=== PATIENT | female | born 1995 | race Caucasian/White ===

== ENCOUNTER 2017-06-11 03:59 | Inpatient (IN) | payer OTHER ==
[~2017-06-11] VITALS: Ht 152.4 cm; Wt 45.9 kg
[2017-06-11] MEDS ORDERED: ONDANSETRON HCL 4 MG/2 ML VIAL IVP PRN (04:15)
[2017-06-11] MEDS ORDERED: ACETAMINOPHEN 325 MG TAB PO PRN (04:15)
[2017-06-11] MEDS ORDERED: SODIUM CHLORIDE 0.9% FLUSH 10 ML FLUSH IV FLUSH PRN (04:15)
[2017-06-11] MEDS: CIPROFLOXACIN 400 MG PREMIX 200 ML IV SCH ×2 (06:25→17:33)
[2017-06-11] MEDS: SODIUM CHLOR 0.9% 1000 ML INJ 1,000 ML IV SCH ×2 (06:25→16:15)
[2017-06-11 08:00] VITALS: BP 119/69; PULSE 97; RESP 16; TEMP 97.2; O2SAT 99
[2017-06-11] MEDS: SODIUM CHLORIDE 0.9% FLUSH 10 ML FLUSH IV FLUSH SCH ×2 (09:00→20:13)
--- NOTE | 2017-06-11 09:09 | HHI.HP ---
[facility] Service [facility] Primary Care Physician Unknown Admission Diagnosis gastric outlet obstruction Diagnoses: (1) Gastric outlet obstruction Diagnosis: Principal Chief Complaint: nausea and vomiting Travel History International Travel<30 Days: No Contact w/Intl Traveler <30 Da: No Traveled to Known Affected Are: No History of Present Illness patient is a 21 y/o female with no significant past medical history presented to ER with nausea and vomiting. she says that this started last night. she initially had some abdominal pain but it resolved. she says that she had an episode of nausea and vomiting about six months ago for which she was seen at [facility] and she was sent home with the diagnosis of food poisoning. she says that for the past two months she's had loose bowel movements. she denies any weight loss. Review of Systems Constitutional: DENIES: Fever, Weight loss, Chills, Night Sweats Eyes: DENIES: Blurred vision, Diplopia, Vision loss, Double Vision Ears, nose, mouth, throat: DENIES: Tinnitus, Vertigo, Throat pain, Epistaxis Respiratory: DENIES: Apneas, Cough, Snoring, Wheezing, Hemoptysis, Sputum production, Shortness of breath Cardiovascular: DENIES: Chest pain, Palpitations, Syncope, Dyspnea on Exertion , PND, Lower Extremity Edema, Orthopnea, Claudication Gastrointestinal: COMPLAINS OF: Nausea, Vomiting, DENIES: Abdominal pain, Black stools, Bloody stools, Constipation, Diarrhea, Difficulty Swallowing, Anorexia Genitourinary: DENIES: Urinary frequency, Urgency, Hematuria, Dysuria Musculoskeletal: DENIES: Joint pain, Muscle aches, Stiffness, Joint Swelling Integumentary: DENIES: Rash Neurologic: DENIES: Abnormal gait, Headache, Localized weakness, Paresthesias, Seizures, Speech Problems, Tremor, Poor Balance Psychiatric: DENIES: Anxiety, Confusion, Mood changes, Depression, Hallucinations, Agitation, Suicidal Ideation, Homicidal Ideation, Delusions Past Family Social History Past Medical History not significant. Past Surgical History none reported. Reported Medications control pill. Allergies: Coded Allergies: No Known Allergies (Unverified , 06/11/17) Active Ordered Medications Current Medications Sodium Chloride (NS Flush) 2 ml UNSCH PRN IV FLUSH FLUSH AFTER USING IV ACCESS ; Start 06/11/17 at 04:15 Sodium Chloride (NS Flush) 2 ml BID IV FLUSH ; Start 06/11/17 at 09:00 Acetaminophen (Tylenol) 650 mg Q4H PRN PO TEMP > 100.4; Start 06/11/17 at 04:15 Ondansetron HCl (Zofran Inj) 4 mg Q6H PRN IVP NAUSEA OR VOMITING Last administered on 06/11/17 06:57; Start 06/11/17 at 04:15 Ciprofloxacin/ Dextrose 200 ml @ 200 mls/hr Q12H IV Last administered on 06:25; Start 06/11/17 at 06:00 Sodium Chloride 1,000 ml @ 100 mls/hr Q10H IV Last administered on 06/11/17 06:25; Start 06/11/17 at 06:15 Promethazine HCl (Phenergan Inj) 12.5 mg Q8H PRN IM NAUSEA OR VOMITING; Start 06/11/17 at 08:00 Family History not significant. Social History doesn't smoke.drinks rarely. Physical Exam Vital Signs Vital Signs Date Time Temp Pulse Resp B/P (MAP) Pulse Ox O2 Delivery O2 Flow Rate FiO2 06/11/17 06:20 Physical Exam GENERAL: in no apparent distress however uncomfortable with the NG tube. SKIN: No rashes, ecchymoses or lesions. Cool and dry. HEAD: Atraumatic. Normocephalic. No temporal or scalp tenderness. EYES: Pupils equal round and reactive. Extraocular motions intact. No scleral icterus. No injection or drainage. ENT: Nose without bleeding, purulent drainage or septal hematoma. Throat without erythema, tonsillar hypertrophy or exudate. Uvula midline. Airway patent. NECK: Trachea midline. No JVD or lymphadenopathy. Supple, nontender, no meningeal signs. CARDIOVASCULAR: Regular rate and rhythm without murmurs, gallops, or rubs. RESPIRATORY: Clear to auscultation. Breath sounds equal bilaterally. No wheezes , rales, or rhonchi. GASTROINTESTINAL: Abdomen soft, non-tender, nondistended. No hepato-splenomegaly , or palpable masses. No guarding. MUSCULOSKELETAL: Extremities without clubbing, cyanosis, or edema. No joint tenderness, effusion, or edema noted. No calf tenderness. Negative Homans sign bilaterally. NEUROLOGICAL: Awake and alert. Cranial nerves II through XII intact. Motor and sensory grossly within normal limits. Five out of 5 muscle strength in all muscle groups. Normal speech. Imaging CT of the abdomen with gastric outlet obstruction. Caprini VTE Risk Assessment Caprini VTE Risk Assessment: No/Low Risk (score <= 1) Caprini Risk Assessment Model Point Value = 1 Point Value = 2 Point Value = 3 Point Value = 5 Age 41-60 Minor surgery BMI > 25 kg/m2 Swollen legs Varicose veins or History of unexplained or recurrent spontaneous Oral contraceptives or hormone replacement Sepsis (< 1 month) Serious lung disease, including pneumonia (< 1 month) Abnormal pulmonary function Acute myocardial infarction Congestive heart failure (< 1 month) History of inflammatory bowel disease Medical patient at bed rest Age 61-74 Arthroscopic surgery Major open surgery (> 45 min) Laparoscopic surgery (> 45 min) Malignancy Confined to bed (> 72 hours) Immobilizing plaster cast Central venous access Age >= 75 History of VTE Family history of VTE Factor V Leiden Prothrombin [id number] Lupus anticoagulant Anticardiolipin antibodies Elevated serum homocysteine Heparin-induced thrombocytopenia Other congenital or acquired thrombophilia Stroke (< 1 month) Elective arthroplasty Hip, pelvis, or leg fracture Acute spinal cord injury (< 1 month) Prophylaxis Regimen Total Risk Factor Score Risk Level Prophylaxis Regimen 0-1 Low Early ambulation 2 Moderate Order ONE of the following: *Sequential Compression Device (SCD) *Heparin 5000 units SQ BID 3-4 Higher Order ONE of the following medications: *Heparin 5000 units SQ TID *Enoxaparin/Lovenox 40 mg SQ daily (WT < 150 kg, CrCl > 30 mL/min) *Enoxaparin/Lovenox 30 mg SQ daily (WT < 150 kg, CrCl > 10-29 mL/min) *Enoxaparin/Lovenox 30 mg SQ BID (WT < 150 kg, CrCl > 30 mL/min) AND/OR *Sequential Compression Device (SCD) 5 or more Highest Order ONE of the following medications: *Heparin 5000 units SQ TID (Preferred with Epidurals) *Enoxaparin/Lovenox 40 mg SQ daily (WT < 150 kg, CrCl > 30 mL/min) *Enoxaparin/Lovenox 30 mg SQ daily (WT < 150 kg, CrCl > 10-29 mL/min) *Enoxaparin/Lovenox 30 mg SQ BID (WT < 150 kg, CrCl > 30 mL/min) AND *Sequential Compression Device (SCD) Assessment and Plan Assessment and Plan A/P - gastric outlet obstruction keep NPO and continue with IV fluid- continue antiemetics as needed. GI consulted. -questionable UTI- started on Cipro- will follow the UC. Discussed Condition With the patient and RN. Physician Certification 2 Midnight Certification Type: Admission for Inpatient Services Order for Inpatient Services The services are ordered in accordance with Medicare regulations or non- Medicare payer requirements, as applicable. In the case of services not specified as inpatient-only, they are appropriately provided as inpatient services in accordance with the 2-midnight benchmark. Estimated LOS (days): 2 days is the estimated time the patient will need to remain in the hospital, assuming treatment plan goals are met and no additional complications. Post-Hospital Plan: Home Juani Lester MD Jun 11, 2017 09:09
[2017-06-11] MEDS: PROMETHAZINE INJ 25 MG/ML VIAL IM PRN ×2 (09:10→17:33)
--- NOTE | 2017-06-11 09:30 | RADRPT ---
EXAM DATE/TIME: 06/11/2017 09:02 [place] COMPARISON: CT ABDOMEN & PELVIS W CONTRAST, June 11, 2017, 2:42. INDICATIONS : Evaluate NG tube placement MEDICAL HISTORY : None. SURGICAL HISTORY : None. ENCOUNTER: Initial ACUITY: 1 day PAIN SCORE: 0/10 LOCATION: chest FINDINGS: Portable AP view of the chest demonstrates a normal-sized cardiac silhouette. Nasogastric tube distal tip is in the gastric body. Lungs are clear. No pneumothorax is present. Lines overlie the patient. There is mild thoracic and lumbar scoliosis. CONCLUSION: Nasogastric tube distal tip in the gastric body. Kevin Araujo MD on June 11, 2017 at 9:27 Board Certified Radiologist. This report was verified electronically.
[2017-06-11 12:00] VITALS: BP 109/67; PULSE 80; RESP 16; TEMP 96.8; O2SAT 98
--- NOTE | 2017-06-11 14:06 | PD.CONS ---
HPI History of Present Illness This is a 21 year old female who presented to the [facility] ER with c/o nausea and vomiting that started overnight. CT Abdomen findings in ER suggest gastric outlet obstruction. Patient reports multiple episodes of emesis, no blood noted in emesis. Reports right sided abdominal pain. Has noted change in bowel movements over past 2 months. Reports she has an BM every 2-3 days, which are loose. Denies melena or hematochezia. Has heartburn and reflux. States sometimes the chest pain from the heartburn is so intense that it will "take her breath away." She does report similar episode of symptoms 6 months ago and was evaluated at [facility]. She was discharged home with diagnosis of food poisoning. No other significant past medical history noted. (Mini Wray) PFSH Past Medical History Not significant Past Surgical History None (Mini Wray) Coded Allergies: No Known Allergies (Unverified , 06/11/17) Medications Current Medications Medications (Trade) Dose Ordered Sig/Raghavendra Route PRN Reason Start Time Stop Time Status Last Admin Dose Admin Sodium Chloride (NS Flush) 2 ml UNSCH PRN IV FLUSH FLUSH AFTER USING IV ACCESS 06/11/17 04:15 Sodium Chloride (NS Flush) 2 ml BID IV FLUSH 06/11/17 09:00 Acetaminophen (Tylenol) 650 mg Q4H PRN PO TEMP > 100.4 06/11/17 04:15 Ondansetron HCl (Zofran Inj) 4 mg Q6H PRN IVP NAUSEA OR VOMITING 06/11/17 04:15 06/11/17 06:57 Ciprofloxacin/ Dextrose 200 ml @ 200 mls/hr Q12H IV 06/11/17 06:00 06/11/17 06:25 Sodium Chloride 1,000 ml @ 100 mls/hr Q10H IV 06/11/17 06:15 06/11/17 06:25 Promethazine HCl (Phenergan Inj) 12.5 mg Q8H PRN IM NAUSEA OR VOMITING 06/11/17 08:00 06/11/17 09:10 Family History Non contributory Social History Tobacco, denies ETOH, rare Illicit Drugs, denies (Mini Wray) Review of Systems Constitutional: COMPLAINS OF: Change in appetite, DENIES: Diaphoretic episodes , Fatigue, Fever, Weight gain, Weight loss, Chills, Dizziness, Night Sweats Endocrine: DENIES: Polydipsia, Polyuria Eyes: DENIES: Blurred vision, Photosensitivity, Double Vision Ears, nose, mouth, throat: DENIES: Hearing loss, Vertigo, Oral lesions, Throat pain, Hoarseness Respiratory: DENIES: Cough, Wheezing, Hemoptysis, Sputum production, Shortness of breath Cardiovascular: DENIES: Chest pain, Palpitations, Syncope, Lower Extremity Edema, Orthopnea, Claudication Gastrointestinal: COMPLAINS OF: Abdominal pain, Diarrhea, Nausea, Vomiting, Heartburn Genitourinary: DENIES: Urinary frequency, Urinary incontinence, Urgency, Hematuria, Dysuria, Nocturia Musculoskeletal: DENIES: Joint pain, Muscle aches, Stiffness, Joint Swelling, Back pain, Neck pain Integumentary: DENIES: Abnormal pigmentation, Nail changes, Pruritus, Rash, Jaundice Hematologic/lymphatic: DENIES: Bruising, Lymphadenopathy Immunologic/allergic: DENIES: Eczema, Urticaria Neurologic: DENIES: Abnormal gait, Headache, Localized weakness, Paresthesias Psychiatric: DENIES: Anxiety, Confusion, Mood changes, Depression, Agitation, Suicidal Ideation (Mini Wray) GI Exam Vitals I&O Vital Signs Date Time Temp Pulse Resp B/P (MAP) Pulse Ox O2 Delivery O2 Flow Rate FiO2 06/11/17 08:00 97.2 97 16 119/69 (86) 99 06/11/17 06:20 I/O 06/10/17 06/10/17 06/10/17 06/11/17 06/11/17 06/11/17 07:00 15:00 23:00 07:00 15:00 23:00 Intake Total 0 ml Output Total 50 ml Balance 0 ml -50 ml Intake Oral 0 ml Output Emesis 50 ml # Voids 1 # Bowel Movements 0 Imaging Last Impressions Chest X-Ray 06/11/17 0000 Signed Impressions: Service Date/Time: Sunday, June 11, 2017 09:02 - CONCLUSION: Nasogastric tube distal tip in the gastric body. Kevin Araujo MD Laboratory Vital Signs Date Time Temp Pulse Resp B/P (MAP) Pulse Ox O2 Delivery O2 Flow Rate FiO2 06/11/17 08:00 97.2 97 16 119/69 (86) 99 06/11/17 06:20 Physical Examination HEENT: Normocephalic; atraumatic; no jaundice. Throat is clear. NGT to [facility] with minimal green drainage. NECK: Neck is supple CHEST: CTA CARDIAC: RRR with no murmur gallop or rubs. ABDOMEN: Soft, nondistended, nontender; no hepatosplenomegaly; bowel sounds are present. EXTREMITIES: No clubbing, cyanosis, or edema. SKIN: Normal; no rash; no jaundice. LOG TURNER: No focal deficits; alert and oriented x 3 (Mini Wray) Assessment and Plan Plan ASSESSMENT: - Gastric outlet obstruction, with nausea and vomiting. CT Abdomen (06/11/17)-- Findings suggest gastric outlet obstruction. Concentric narrowing of the pyloric region could represent either peristaltic contraction or mass lesion. NGT is in place at [facility] with minimal green gastric fluid. WBC 16.9 (06/11) - UTI? Urine culture indicated, results pending. PLAN: - EGD Monday - Obtain consents - NPO - Clamp NGT - IVF - Anti-emetics - Supportive care - Further recommendations to follow based on results of above Patient seen and examined by Dr. Rodriguez and myself and this note is written on his behalf. (Mini Wray) Physician Comments Patient seen and examined Agree with above Continue with current supportive care And monitor labs Plan for an EGD tomorrow (Tanmay Rodriguez MD) Mini Wray Jun 11, 2017 14:06 Tanmay Rodriguez MD Jun 11, 2017 23:26
[2017-06-11 16:00] VITALS: BP 111/66; PULSE 89; RESP 16; TEMP 97.9; O2SAT 95
[2017-06-11] MEDS: DEXT 5%-NACL 0.9% 1000 ML INJ 1,000 ML IV SCH (17:35)
[2017-06-11 20:05] VITALS: BP 99/65; PULSE 86; RESP 18; TEMP 98.8; O2SAT 96
[2017-06-11] MEDS ORDERED: PHENOL 1.4% SOLN 180 ML BTL OROPHARYNG PRN (21:45)
[2017-06-11] MEDS ORDERED: SODIUM CHLORID 0.9% 500 ML IV PRN (21:45)
[2017-06-11] MEDS ORDERED: POVIDONE IODINE 5% (ANTISEPSIS KIT) 4 APPLICATIONS EACH NARE PRN (21:45)
[2017-06-11] MEDS ORDERED: INSULIN HUMAN REGULAR 1,000 UNITS/10 ML VIAL SQ PRN (21:45)
[2017-06-11] MEDS ORDERED: CHLORHEXIDINE GLUCONATE 2 % 1 PACK (2 CLOTHS) TOPICAL PRN (21:45)
[2017-06-11] MEDS ORDERED: METOPROLOL TARTRATE 25 MG TAB PO PRN (21:45)
[2017-06-11] MEDS ORDERED: LACTATED RINGER'S 1000 ML IV PRN (21:45)
[2017-06-11 22:05] VITALS: BP 104/65; PULSE 61; RESP 16; TEMP 97.4; O2SAT 100
[2017-06-12 03:10] VITALS: BP 98/55; PULSE 79; RESP 17; TEMP 97.6; O2SAT 98
[2017-06-12] MEDS: CIPROFLOXACIN 400 MG PREMIX 200 ML IV SCH ×2 (05:54→18:15)
[2017-06-12] MEDS: DEXT 5%-NACL 0.9% 1000 ML INJ 1,000 ML IV SCH (05:54)
[2017-06-12 07:36] VITALS: BP 102/62; PULSE 65; RESP 18; TEMP 96.5; O2SAT 98
[2017-06-12] MEDS: SODIUM CHLORIDE 0.9% FLUSH 10 ML FLUSH IV FLUSH SCH (08:03)
[2017-06-12] MEDS ORDERED: SUCCINYLCHOLINE CHLORIDE 100 MG/5 ML SYRINGE IV PUSH ONE (08:13)
[2017-06-12] MEDS ORDERED: LIDOCAINE HCL 1% PF 5 ML AMPULE OTHER ONE (08:13)
[2017-06-12 08:43] LABS: AUTOMATED NEUTROPHIL # 3.2 TH/MM3 (1.8-7.7); BASOPHIL % 0.3 % (0.0-2.0); EOSINOPHIL # 0.2 TH/MM3 (0-0.4); EOSINOPHIL % 3.7 % (0.0-4.0); HEMO FLAGS DIFF FINAL; LYMPH % 23.3 % (9.0-44.0); LYMPHOCYTE # 1.3 TH/MM3 (1.0-4.8); MEAN CORPUSCULAR HEMOGLOBIN 30.4 PG (27.0-34.0); MEAN CORPUSCULAR HGB CONC 33.8 % (32.0-36.0); MONO % 13.9 % (0.0-8.0); NEUT % 58.8 % (16.0-70.0); PLATELET COUNT 183 TH/MM3 (150-450); RED BLOOD COUNT 3.78 MIL/MM3 (4.00-5.30); WHITE BLOOD COUNT 5.5 TH/MM3 (4.0-11.0)
--- NOTE | 2017-06-12 08:55 | HHI.PR ---
Subjective Remarks in no acute distress. NG tube in place. nausea is better. no abdominal pain. awaiting EGD. Objective Vitals Vital Signs Date Time Temp Pulse Resp B/P (MAP) Pulse Ox O2 Delivery O2 Flow Rate FiO2 06/12/17 07:36 96.5 65 18 102/62 (75) 98 06/12/17 03:10 97.6 79 17 98/55 (69) 98 06/11/17 22:05 97.4 61 16 104/65 (78) 100 06/11/17 20:05 98.8 86 18 99/65 (76) 96 06/11/17 16:00 97.9 89 16 111/66 (81) 95 06/11/17 12:00 96.8 80 16 109/67 (81) 98 I/O 06/11/17 06/11/17 06/11/17 06/12/17 06/12/17 06/12/17 07:00 15:00 23:00 07:00 15:00 23:00 Intake Total 0 ml 286 ml 888 ml 0 ml Output Total 53 ml Balance 0 ml -53 ml 286 ml 888 ml 0 ml Intake Oral 0 ml 0 ml 0 ml IV Total 286 ml 888 ml Output Urine Total 3 ml Emesis 50 ml Bladder Scan Volume Amount 22 ml # Voids 1 1 1 # Bowel Movements 0 1 0 0 Result Diagram: 06/12/17 0748 Imaging Last Impressions Chest X-Ray 06/11/17 0000 Signed Impressions: Service Date/Time: Sunday, June 11, 2017 09:02 - CONCLUSION: Nasogastric tube distal tip in the gastric body. Kevin Araujo MD Objective Remarks GENERAL: in no distress with NG tube in place. CARDIOVASCULAR: Regular rate and regular rhythm without murmurs, gallops, or rubs. RESPIRATORY: Clear to auscultation. Breath sounds equal bilaterally. No wheezes , rales, or rhonchi. GASTROINTESTINAL: Abdomen soft, non-tender, nondistended. Normal, active bowel sounds MUSCULOSKELETAL: Extremities without clubbing, cyanosis, or edema. NEURO: Alert & Oriented x4 to person, place, time, situation. Moves all ext x4 Medications and IVs Current Medications Sodium Chloride (NS Flush) 2 ml UNSCH PRN IV FLUSH FLUSH AFTER USING IV ACCESS ; Start 06/11/17 at 04:15 Sodium Chloride (NS Flush) 2 ml BID IV FLUSH ; Start 06/11/17 at 09:00 Acetaminophen (Tylenol) 650 mg Q4H PRN PO TEMP > 100.4; Start 06/11/17 at 04:15 Ondansetron HCl (Zofran Inj) 4 mg Q6H PRN IVP NAUSEA OR VOMITING Last administered on 06/11/17 06:57; Start 06/11/17 at 04:15 Ciprofloxacin/ Dextrose 200 ml @ 200 mls/hr Q12H IV Last administered on 05:54; Start 06/11/17 at 06:00 Sodium Chloride 1,000 ml @ 100 mls/hr Q10H IV Last administered on 06/11/17 06:25; Start 06/11/17 at 06:15; Stop 06/11/17 at 18:01; Status DC Promethazine HCl (Phenergan Inj) 12.5 mg Q8H PRN IM NAUSEA OR VOMITING Last administered on 06/11/17 17:33; Start 06/11/17 at 08:00 Dextrose/Sodium Chloride 1,000 ml @ 100 mls/hr Q10H IV Last administered on 05:54; Start 06/11/17 at 18:15 Phenol (Chloraseptic [place]) 2 spray Q2H PRN OROPHARYNG sore throat Last administered on 06/11/17 21:48; Start 06/11/17 at 21:45 Lactated Ringer's 1,000 ml @ 30 mls/hr Q24H PRN IV SEE LABEL COMMENTS; Start at 21:45; Stop 06/14/17 at 21:44 Sodium Chloride 500 ml @ 30 mls/hr [id number] PRN IV SEE LABEL COMMENTS; Start at 21:45; Stop 06/14/17 at 21:44 Metoprolol Tartrate (Lopressor) 25 mg MID LEVEL CLINICIAN PRN PO SEE LABEL COMMENTS; Start 06/11/17 at 21:45; Stop 06/14/17 at 21:44; Status Cancel Povidone Iodine (Betadine 5% Antisepsis Kit) 1 applic MID LEVEL CLINICIAN PRN EACH NARE SEE LABEL COMMENTS; Start 06/11/17 at 21:45; Stop 06/14/17 at 21:44 Chlorhexidine Gluconate (Chlorhexidine 2% Cloth) 3 pack MID LEVEL CLINICIAN PRN TOPICAL SEE LABEL COMMENTS; Start 06/11/17 at 21:45; Stop 06/14/17 at 21:44 Insulin Human Regular (NovoLIN R INJ) See Protocol Table ... MID LEVEL CLINICIAN PRN SQ SEE PROTOCOL TABLE; Start 06/11/17 at 21:45; Stop 06/14/17 at 21:44 A/P Assessment and Plan - gastric outlet obstruction keep NPO and continue with IV fluid- continue antiemetics as needed. GI consulted and plan for EGD today. -low-normal blood sugar-improved- continue with D5NS -questionable UTI- started on Cipro- will follow the UC. Discharge Planning pending EGD and GI recommendations. Juani Lester MD Jun 12, 2017 08:55
[2017-06-12 09:00] LABS: BICARBONATE 24.8 MEQ/L (21.0-32.0); POTASSIUM 3.3 MEQ/L (3.5-5.1)
[2017-06-12] MEDS ORDERED: PROPOFOL 200 MG/20 ML AMP IV ONE (12:00)
[2017-06-12] MEDS ORDERED: MIDAZOLAM HCL 2 MG/2 ML VIAL IV ONE (12:00)
[2017-06-12] MEDS ORDERED: LACTATED RINGER'S 1000 ML INJ 1,000 ML IV ONE (12:29)
[2017-06-12] MEDS: D5-NS + KCL 20 MEQ INJ 1,000 ML IV SCH ×3 (12:30→22:30)
--- NOTE | 2017-06-12 12:57 | HHI.GIFU ---
Subjective Remarks Patient is doing okay, being uncomfortable with the NG tube, no vomiting anymore , still some abdominal discomfort Objective Vitals I&O Vital Signs Date Time Temp Pulse Resp B/P (MAP) Pulse Ox O2 Delivery O2 Flow Rate FiO2 06/12/17 07:36 96.5 65 18 102/62 (75) 98 06/12/17 03:10 97.6 79 17 98/55 (69) 98 06/11/17 22:05 97.4 61 16 104/65 (78) 100 06/11/17 20:05 98.8 86 18 99/65 (76) 96 06/11/17 16:00 97.9 89 16 111/66 (81) 95 I/O 06/11/17 06/11/17 06/11/17 06/12/17 06/12/17 06/12/17 07:00 15:00 23:00 07:00 15:00 23:00 Intake Total 0 ml 286 ml 888 ml 0 ml Output Total 53 ml Balance 0 ml -53 ml 286 ml 888 ml 0 ml Intake Oral 0 ml 0 ml 0 ml IV Total 286 ml 888 ml Output Urine Total 3 ml Emesis 50 ml Bladder Scan Volume Amount 22 ml # Voids 1 1 1 # Bowel Movements 0 1 0 0 Laboratory Laboratory Tests Test 06/12/17 07:48 White Blood Count 5.5 Red Blood Count 3.78 Hemoglobin 11.5 Hematocrit 34.0 Mean Corpuscular Volume 90.0 Mean Corpuscular Hemoglobin 30.4 Mean Corpuscular Hemoglobin Concent 33.8 Red Cell Distribution Width 13.0 Platelet Count 183 Mean Platelet Volume 8.3 Neutrophils (%) (Auto) 58.8 Lymphocytes (%) (Auto) 23.3 Monocytes (%) (Auto) 13.9 Eosinophils (%) (Auto) 3.7 Basophils (%) (Auto) 0.3 Neutrophils # (Auto) 3.2 Lymphocytes # (Auto) 1.3 Monocytes # (Auto) 0.8 Eosinophils # (Auto) 0.2 Basophils # (Auto) 0.0 CBC Comment DIFF FINAL Differential Comment Blood Urea Nitrogen 9 Creatinine 0.82 Random Glucose 88 Calcium Level 8.0 Sodium Level 143 Potassium Level 3.3 Chloride Level 112 Carbon Dioxide Level 24.8 Anion Gap 6 Estimat Glomerular Filtration Rate 90 Physical Exam HEENT: Pupils round and reactive to light; normocephalic; atraumatic; no jaundice. Throat is clear. NECK: Neck is supple, no JVD, no lymphadenopathy. CHEST: Chest is clear to auscultation and percussion. CARDIAC: Regular rate and rhythm with no murmur gallop or rubs. ABDOMEN: Soft, nondistended, mild diffuse abdominal tenderness; no hepatosplenomegaly; bowel sounds are present in all four quadrants. EXTREMITIES: No clubbing, cyanosis, or edema. SKIN: Normal; no rash; no jaundice. WIRE FRAME MAKER: No focal deficits; alert and oriented times three. Assessment and Plan Plan ASSESSMENT: - Gastric outlet obstruction, with nausea and vomiting. CT Abdomen (06/11/17)-- Findings suggest gastric outlet obstruction. Concentric narrowing of the pyloric region could represent either peristaltic contraction or mass lesion. NGT is in place at [facility] with minimal green gastric fluid. WBC 16.9 (06/11) - UTI? Urine culture indicated, results pending. 06/12/2017 patient is doing okay, EGD showed no gastric outlet obstruction, patient has duodenitis biopsy from the antrum to rule out H. pylori, she has esophagitis biopsy was done from the distal esophagus PLAN: -Clear liquid advance as tolerated -DC NGT - IVF - Anti-emetics - Supportive care -Await biopsy results -If continued to have problem a small bowel follow-through may be indicated Patient seen and examined by Dr. Rodriguez and myself and this note is written on his behalf. Jaye Gabriel MD Jun 12, 2017 12:57
--- NOTE | 2017-06-12 13:00 | GIPROC ---
[facility] [address] [facility]. [facility], [address] EGD PROCEDURE REPORT EXAM DATE: 06/12/2017 PATIENT NAME: Matilda Grey MR #: [id number] BIRTHDATE: 1995 ATTENDING: Jaye Gabriel MD ORDER #: [id number] YARD ENGINEER: Ehsan Pino and Rachna March STATUS: inpatient INDICATIONS: The patient is a 21 yr old female here for an EGD due to Nausea vomiting, abdominal pain, possible gastric outlet obstruction on CT of the abdomen PROCEDURE PERFORMED: EGD w/ biopsy MEDICATIONS: None and Per Anesthesia. TOPICAL ANESTHETIC: none CONSENT: The patient understands the risks and benefits of the procedure and understands that these risks include, but are not limited to: sedation, allergic reaction, infection, perforation and/or bleeding. Alternative means of evaluation and treatment include, among others: physical exam, x-rays, and/or surgical intervention. The patient elects to proceed with this endoscopic procedure. medical equipment was checked for proper function. Hand hygiene and appropriate measures for infection prevention was taken. After the risks, benefits and alternatives of the procedure were thoroughly explained, Informed consent was verified, confirmed and timeout was successfully executed by the treatment team. The patient was anesthetized with topical anesthesia and the Pentax EG-[id number] endoscope was introduced through the mouth and advanced to the second portion of the duodenum. Retroflexed views revealed no abnormalities The gastroscope was then slowly withdrawn and removed. Moderate esophagitis biopsy from the EG junction. No gastric outlet obstruction. Mild duodenitis, biopsy from the antrum to rule out H. pylori. The endoscopy was otherwise normal. ADVERSE EVENTS: There were no complications. IMPRESSIONS: 1. Moderate esophagitis biopsy from the EG junction 2. No gastric outlet obstruction 3. Mild duodenitis, biopsy from the antrum to rule out H. pylori 4. Normal endoscopy otherwise 5. Retroflexed views revealed no abnormalities RECOMMENDATIONS: 1. Await biopsy results. Biopsy results will not be ready for 7-10 days. If you don't hear from us in two weeks, call our office for biopsy results. 2. Anti-reflux regimen 3. Avoid NSAIDS 4. Start PPI 5. Most likely this is gastroenteritis, if symptoms persist she will need small bowel follow-through PATIENT CONDITION: stable DISPOSITION: Inpatient REPEAT EXAM: Return as needed for EGD Jaye Gabriel MD eSigned: Jaye Gabriel MD 06/12/2017 1:00 PM cc: PATIENT NAME: Matilda Grey MR#: [id number]
[2017-06-12] MEDS ORDERED: DO NOT ADM ANY ANTICOAGULANT DRUGS PRN (13:18)
[2017-06-12 15:26] VITALS: BP 118/84; PULSE 52; RESP 18; TEMP 95.5; O2SAT 100
[2017-06-12] MEDS: PROMETHAZINE INJ 25 MG/ML VIAL IM PRN (15:43)
[2017-06-12] MEDS ORDERED: POTASSIUM CHLORIDE INJ 20 MEQ in DEXT 5%-NACL 0.9% 1000 ML INJ 1,000 ML IV SCH (18:15)
[2017-06-12 20:15] VITALS: BP 89/62; PULSE 62; RESP 16; TEMP 97.7; O2SAT 100
[2017-06-12] MEDS ORDERED: ACETAMINOPHEN/HYDROcodone 325 MG/5 MG TAB PO ONE (20:30)
[2017-06-12] MEDS ORDERED: diphenhydrAMINE HCL 25 MG CAP PO ONE (20:30)
[2017-06-12 23:57] VITALS: BP 96/54; PULSE 73; RESP 16; TEMP 96.2; O2SAT 100
[2017-06-13 00:34] VITALS: O2SAT 95
[2017-06-13] MEDS: CIPROFLOXACIN 400 MG PREMIX 200 ML IV SCH (05:49)
[2017-06-13 08:00] VITALS: BP 106/72; PULSE 72; RESP 16; TEMP 96; O2SAT 100
--- NOTE | 2017-06-13 09:48 | HHI.PR ---
Subjective Remarks in no distress. NG has been removed. started on liquid diet . complaining of abdominal pain. Objective Vitals Vital Signs Date Time Temp Pulse Resp B/P (MAP) Pulse Ox O2 Delivery O2 Flow Rate FiO2 06/13/17 00:34 95 06/12/17 23:57 96.2 73 16 96/54 (68) 100 06/12/17 20:15 97.7 62 16 89/62 (71) 100 06/12/17 15:26 95.5 52 18 118/84 (95) 100 06/12/17 13:30 98.0 82 16 129/61 (83) 100 Room Air 06/12/17 13:15 96 16 127/78 (94) 100 Room Air 06/12/17 13:13 98.0 99 16 127/78 (94) 99 Room Air I/O 06/12/17 06/12/17 06/12/17 06/13/17 06/13/17 06/13/17 07:00 15:00 23:00 07:00 15:00 23:00 Intake Total 888 ml 750 ml 240 ml 240 ml Balance 888 ml 750 ml 240 ml 240 ml Intake Oral 0 ml 240 ml 240 ml IV Total 888 ml 0 ml Other 750 ml Bladder Scan Volume Amount 22 ml # Voids 1 1 2 # Bowel Movements 0 0 0 Result Diagram: 06/12/17 0748 06/12/17 0748 Imaging Last Impressions Chest X-Ray 06/11/17 0000 Signed Impressions: Service Date/Time: Sunday, June 11, 2017 09:02 - CONCLUSION: Nasogastric tube distal tip in the gastric body. Kevin Araujo MD Objective Remarks GENERAL: in no distress . CARDIOVASCULAR: Regular rate and regular rhythm without murmurs, gallops, or rubs. RESPIRATORY: Clear to auscultation. Breath sounds equal bilaterally. No wheezes , rales, or rhonchi. GASTROINTESTINAL: Abdomen soft, mild epigastric tenderness, nondistended. Normal, active bowel sounds MUSCULOSKELETAL: Extremities without clubbing, cyanosis, or edema. NEURO: Alert & Oriented x4 to person, place, time, situation. Moves all ext x4 Procedures EGD Medications and IVs Current Medications Sodium Chloride (NS Flush) 2 ml UNSCH PRN IV FLUSH FLUSH AFTER USING IV ACCESS ; Start 06/11/17 at 04:15 Sodium Chloride (NS Flush) 2 ml BID IV FLUSH ; Start 06/11/17 at 09:00 Acetaminophen (Tylenol) 650 mg Q4H PRN PO TEMP > 100.4; Start 06/11/17 at 04:15 Ondansetron HCl (Zofran Inj) 4 mg Q6H PRN IVP NAUSEA OR VOMITING Last administered on 06/11/17 06:57; Start 06/11/17 at 04:15 Ciprofloxacin/ Dextrose 200 ml @ 200 mls/hr Q12H IV Last administered on 05:49; Start 06/11/17 at 06:00 Sodium Chloride 1,000 ml @ 100 mls/hr Q10H IV Last administered on 06/11/17 06:25; Start 06/11/17 at 06:15; Stop 06/11/17 at 18:01; Status DC Promethazine HCl (Phenergan Inj) 12.5 mg Q8H PRN IM NAUSEA OR VOMITING Last administered on 06/12/17 15:43; Start 06/11/17 at 08:00 Dextrose/Sodium Chloride 1,000 ml @ 100 mls/hr Q10H IV Last administered on 05:54; Start 06/11/17 at 18:15; Stop 06/12/17 at 12:18; Status DC Phenol (Chloraseptic [place]) 2 spray Q2H PRN OROPHARYNG sore throat Last administered on 06/11/17 21:48; Start 06/11/17 at 21:45 Lactated Ringer's 1,000 ml @ 30 mls/hr Q24H PRN IV SEE LABEL COMMENTS; Start at 21:45; Stop 06/12/17 at 12:22; Status DC Sodium Chloride 500 ml @ 30 mls/hr [id number] PRN IV SEE LABEL COMMENTS; Start at 21:45; Stop 06/12/17 at 12:22; Status DC Metoprolol Tartrate (Lopressor) 25 mg BUSINESS [employer]IT LEADER PRN PO SEE LABEL COMMENTS; Start 06/11/17 at 21:45; Stop 06/14/17 at 21:44; Status Cancel Povidone Iodine (Betadine 5% Antisepsis Kit) 1 applic BUSINESS UNIT LEADER PRN EACH NARE SEE LABEL COMMENTS; Start 06/11/17 at 21:45; Stop 06/14/17 at 21:44 Chlorhexidine Gluconate (Chlorhexidine 2% Cloth) 3 pack BUSINESS UNIT LEADER PRN TOPICAL SEE LABEL COMMENTS; Start 06/11/17 at 21:45; Stop 06/14/17 at 21:44 Insulin Human Regular (NovoLIN R INJ) See Protocol Table ... BUSINESS UNIT LEADER PRN SQ SEE PROTOCOL TABLE; Start 06/11/17 at 21:45; Stop 06/14/17 at 21:44 Potassium Chloride 20 meq/ Dextrose/Sodium Chloride 1,010 ml @ 100 mls/hr Q10H6M IV ; Start 06/12/17 at 18:15; Stop 06/12/17 at 18:15; Status DC Potassium Chloride/Dextrose/ Sod Cl 1,000 ml @ 100 mls/hr Q10H IV Last administered on 06/12/17 22:30; Start 06/12/17 at 12:30 Lactated Ringer's 1,000 ml @ 30 mls/hr Q24H ONCE IV Last administered on 12:38; Start 06/12/17 at 12:29; Stop 06/13/17 at 12:28 Miscellaneous Information ALL NURSING DEPARTME... UNSCH PRN .XX SEE LABEL COMMENTS; Start 06/12/17 at 13:18; Stop 06/13/17 at 13:17 Acetaminophen/ Hydrocodone Bitart ([place] 5-325 Mg) 1 tab ONCE ONCE PO Last administered on 06/12/17 20:30; Start 06/12/17 at 20:30; Stop 06/12/17 at 20:31 ; Status DC Diphenhydramine HCl (Benadryl) 25 mg ONCE ONCE PO Last administered on 20:30; Start 06/12/17 at 20:30; Stop 06/12/17 at 20:31; Status DC A/P Assessment and Plan A/P -nausea/ vomiting/abdominal pain with CT of the abdomen suggestive of gastric outlet obstruction s/p EGD with esophagitis and duodenitis- however with no gastric outlet obstruction started on liquid diet- will start her on PPI. GI following. -low-normal blood sugar-improved- continue with D5NS -asymptomatic bacteriuria- UC with gram-positive rebekah - will dc Cipro. Discharge Planning pending EGD and GI recommendations. Juani Lester MD Jun 13, 2017 09:48
[2017-06-13] MEDS ORDERED: PANTOPRAZOLE SODIUM 40 MG VIAL IV PUSH SCH (11:00)
[2017-06-13 12:00] VITALS: BP 110/69; PULSE 63; RESP 16; TEMP 97; O2SAT 100
[2017-06-13] MEDS ORDERED: diphenhydrAMINE HCL 25 MG CAP PO PRN (12:00)
[2017-06-13] MEDS ORDERED: PROM25TA10 PO (15:30)
[2017-06-13] MEDS ORDERED: PROT40TA PO (15:30)
--- NOTE | 2017-06-13 15:33 | HHI.DS ---
Discharge Summary Admission Date Jun 11, 2017 at 06:01 Discharge Date: Jun 13, 2017 Admitting Diagnosis gastric outlet obstruction (1) Gastric outlet obstruction ICD Code: K31.1 - Adult hypertrophic pyloric stenosis Diagnosis: Principal Procedures EGD Brief History - From Admission patient is a 21 y/o female with no significant past medical history presented to ER with nausea and vomiting. she says that this started last night. she initially had some abdominal pain but it resolved. she says that she had an episode of nausea and vomiting about six months ago for which she was seen at [facility] and she was sent home with the diagnosis of food poisoning. she says that for the past two months she's had loose bowel movements. she denies any weight loss. CBC/BMP: 06/12/17 0748 06/12/17 0748 Significant Findings Laboratory Tests Test 06/12/17 07:48 Red Blood Count 3.78 MIL/MM3 (4.00-5.30) Hemoglobin 11.5 GM/DL (11.6-15.3) Hematocrit 34.0 % (35.0-46.0) Monocytes (%) (Auto) 13.9 % (0.0-8.0) Calcium Level 8.0 MG/DL (8.5-10.1) Potassium Level 3.3 MEQ/L (3.5-5.1) Chloride Level 112 MEQ/L (98-107) Imaging Last Impressions Chest X-Ray 06/11/17 0000 Signed Impressions: Service Date/Time: Sunday, June 11, 2017 09:02 - CONCLUSION: Nasogastric tube distal tip in the gastric body. Kevin Araujo MD PE at Discharge GENERAL: in no distress . CARDIOVASCULAR: Regular rate and regular rhythm without murmurs, gallops, or rubs. RESPIRATORY: Clear to auscultation. Breath sounds equal bilaterally. No wheezes , rales, or rhonchi. GASTROINTESTINAL: Abdomen soft, mild epigastric tenderness, nondistended. Normal, active bowel sounds MUSCULOSKELETAL: Extremities without clubbing, cyanosis, or edema. NEURO: Alert & Oriented x4 to person, place, time, situation. Moves all ext x4 Hospital Course -nausea/ vomiting/abdominal pain with CT of the abdomen suggestive of gastric outlet obstruction s/p EGD with esophagitis and duodenitis- however with no gastric outlet obstruction started on liquid diet- will start her on PPI. GI following. -low-normal blood sugar-improved- continue with D5NS -asymptomatic bacteriuria- UC with gram-positive rebekah - will dc Cipro. Pt Condition on Discharge: Fair Discharge Disposition: Discharge Home Discharge Time: <= 30 minutes Discharge Instructions DIET: Follow Instructions for: As Tolerated, No Restrictions Activities you can perform: Regular-No Restrictions Follow up Referrals: Gastroenterology PCP Follow-up New Medications: Pantoprazole (Protonix) 40 Mg Tab 40 MG PO DAILY for Reflux for 30 Days, #30 TAB 0 Refills Promethazine (Phenergan) 25 Mg Tablet 25 MG PO Q8HR PRN for NAUSEA OR VOMITING, #12 TAB 0 Refills Juani Lester MD Jun 13, 2017 15:33
[2017-06-13 16:00] VITALS: BP 118/65; PULSE 62; RESP 16; TEMP 95.8; O2SAT 100
== END 2017-06-13 20:20 | disposition home or self-care (01) | DRG 392 ==
LOC: NEDDLT 05:01 → N06B 06:01
PROVIDERS: ADMIT Internal Medicine; ATTEND Internal Medicine
PROC: 0DB38ZX Excision of Lower Esophagus, Via Natural or Artificial Opening Endoscopic, Diagnostic (ICD-10-PCS; 2017-06-12)
PROC: 0DB98ZX Excision of Duodenum, Via Natural or Artificial Opening Endoscopic, Diagnostic (ICD-10-PCS; principal; 2017-06-12 12:38)
DX: K21.0 Gastro-esophageal reflux disease with esophagitis (principal); K29.80 Duodenitis without bleeding; R11.2 Nausea with vomiting, unspecified
CPT/HCPCS: 71010; 74177; 76937; 80048; 80053; 80307; 81001; 82948; 83690; 84702; 85025; 87086; 88305; 88312; 96361; 96374; 96375; 96376; C9113; J0330; J0744; J1885; J2250; J2405; J2550; J2765; J3010; J3480; J7030; J7042; J7120; Q9963; Q9967

== ENCOUNTER 2017-06-14 12:21 | Emergency (ER) | payer OTHER ==
[~2017-06-14] VITALS: Ht 152.4 cm; Wt 45.5 kg
[~2017-06-14 12:21] MED LIST: PROM25TA10 PO; PROT40TA PO
[2017-06-14 12:22] VITALS: BP 124/69; PULSE 70; RESP 16; TEMP 97.9; O2SAT 100
--- NOTE | 2017-06-14 12:27 | PD ---
Physical Exam Time Seen by Provider: 12:26 Narrative 21 y/o female d/c yesterday after being d/x with suspected gastric outlet obstruction was sent here for further evaluation by her physician. C/O abdominal pain, nausea. Concerned about parasites because her symptoms started one month after traveling to [place] in early 2016. Vital signs reviewed. Seen at triage desk. Awaiting bed placement. Data Data Last Documented VS Vital Signs Date Time Temp Pulse Resp B/P (MAP) Pulse Ox O2 Delivery O2 Flow Rate FiO2 06/14/17 12:22 97.9 70 16 124/69 (87) 100 Room Air [facility] Medical Record Reviewed: Yes Supervised Visit with ANAI: Harshad Sheth Jun 14, 2017 12:27
[2017-06-14] MEDS ORDERED: SODIUM CHLOR 0.9% 1000 ML INJ 1,000 ML IV SCH (14:05)
[2017-06-14] MEDS ORDERED: PROCHLORPERAZINE INJ 10 MG/2 ML VIAL IV PUSH ONE (14:15)
--- NOTE | 2017-06-14 14:34 | PD ---
HPI Chief Complaint: GI Complaint Time Seen by Provider: 14:09 Travel History International Travel<30 days: No Contact w/Intl Traveler<30days: No Traveled to known affect area: No History of Present Illness HPI 21-year-old female presents to the emergency department for evaluation of nausea vomiting that has been persistent since October 2016. Patient was admitted to our facilities on Monday night and discharged yesterday receiving a workup to rule out gastric outlet narrowing. After all the tests and procedures it was found that the patient has gastroenteritis. Patient states that despite the Phenergan that she has been taking she still feeling nauseous so she called her primary care and they instructed her to come to the emergency department to receive testing to rule out parasites. Patient denies any vomiting today. Patient denies any blood in her stool or vomit. Patient denies chest pain, shortness breath, fever, chills, malaise or lightheadedness. PFSH Past Medical History Cancer: No Cardiovascular Problems: No Diminished Hearing: No Endocrine: No Gastrointestinal Disorders: Yes (7 MONTH VOMITING) Genitourinary: No Immune Disorder: No Musculoskeletal: No Neurologic: No Psychiatric: No Reproductive: No Respiratory: No Immunizations Current: Yes ?: Not LMP: LAST WEEK Social History Alcohol Use: Yes (RARE) Tobacco Use: No Substance Use: No Allergies-Medications (Allergen,Severity, Reaction): Coded Allergies: No Known Allergies (Unverified , 06/11/17) Reported Meds & Prescriptions Reported Meds & Active Scripts Active Protonix (Pantoprazole Sodium) 40 Mg Tab 40 Mg PO DAILY 30 Days Phenergan (Promethazine HCl) 25 Mg Tablet 25 Mg PO Q8HR PRN Review of Systems Except as stated in HPI: all other systems reviewed are Neg Gastrointestinal: Positive: Nausea Physical Exam Narrative GENERAL: Well-nourished well-developed 21-year-old female in no acute distress. SKIN: Focused skin assessment warm/dry. HEAD: Atraumatic. Normocephalic. EYES: Pupils equal and round. No scleral icterus. No injection or drainage. ENT: No nasal bleeding or discharge. Mucous membranes pink and moist. NECK: Trachea midline. No JVD. CARDIOVASCULAR: Regular rate and rhythm. No murmur appreciated. RESPIRATORY: No accessory muscle use. Clear to auscultation. Breath sounds equal bilaterally. GASTROINTESTINAL: Abdomen soft, non-tender, nondistended. No guarding or rebound tenderness. Hepatic and splenic margins not palpable. MOUTH: Mucous membranes moist, no lesions, tongue and gums appear normal. MUSCULOSKELETAL: No obvious deformities. No clubbing. No cyanosis. No edema. NEUROLOGICAL: Awake and alert. No obvious cranial nerve deficits. Motor grossly within normal limits. Normal speech. PSYCHIATRIC: Appropriate mood and affect; insight and judgment normal. Data Data Last Documented VS Vital Signs Date Time Temp Pulse Resp B/P (MAP) Pulse Ox O2 Delivery O2 Flow Rate FiO2 06/14/17 12:22 97.9 70 16 124/69 (87) 100 Room Air Orders Orders Iv Access Insert/Monitor (06/14/17 14:05) Sodium Chlor 0.9% 1000 Ml Inj (Ns 1000 M (06/14/17 14:05) Stool Ova And Parasite Screen (06/14/17 14:05) Giardia Antigen (Stool) (06/14/17 14:05) Prochlorperazine Inj (Compazine Inj) (06/14/17 14:15) MDM Medical Decision Making Medical Screen Exam Complete: Yes Emergency Medical Condition: Yes Medical Record Reviewed: Yes Differential Diagnosis Differential diagnosis is include but are not limited to gastroenteritis, gastritis, inflammatory bowel disease, peptic ulcer disease, peritonitis, food borne illness, dehydration, Narrative Course 21-year-old female presents emergency department for evaluation of nausea and vomiting that has been persistent since October 2016. Patient received a full workup at our facility to rule out small bowel narrowing and after all of the testing it was found that she has gastroenteritis. Patient was discharged yesterday with a prescription for Phenergan and Protonix. Patient called her primary care today and reported that she was still nauseous despite the Phenergan. Patient denies vomiting today. Primary care told patient to report to the emergency department to the worked up for parasites. Patient denies any chest pain, shortness breath, fever, chills, malaise, dysuria or lightheadedness. Patient states she has intermittently stools approximately every 3-4 days. If patient able to give us a sample we will admit to the lab to be evaluated for parasites. Parasitic stool culture ordered and pending if patient able to provide a sample. 1 L normal saline bolus and 2 mg IV Compazine ordered. Based on patient's symptoms, physical assessment, vital sign review and prior workup it is not necessary to admit this patient to the hospital or keep this patient in the emergency department for further evaluation. Patient will be discharged home with instructions to follow-up with the primary care and movie theater manager regarding further specialized workup. Patient agreeable to this plan of care and thankful for treatment. Diagnosis Primary Impression: Nausea Patient Instructions: Abdominal Pain (ED), Acute Nausea and Vomiting (ED), General Instructions Additional Instructions: Please return to emergency department if your symptoms worsen. Follow up with your primary care provider. Take medications as prescribed. Med/Other Pt SpecificInfo: No Change to Meds Disposition: 01 DISCHARGE HOME Condition: Stable KatieRoseann Millicent SALAZAR Jun 14, 2017 14:34
== END 2017-06-14 15:44 | disposition home or self-care (01) ==
LOC: NEPD 12:21
DX: R11.2 Nausea with vomiting, unspecified (principal); Z79.899 Other long term (current) drug therapy
CPT/HCPCS: 96361; 96374; 99284; J0780; J7030; 87328; 87329

== ENCOUNTER 2017-06-16 11:28 | Inpatient (IN) | payer OTHER ==
[2017-06-16] VITALS (7 sets, daily range): BP systolic 126–135; BP diastolic 72–85; PULSE 89–118; RESP 14–20; TEMP 97.9–98.3; O2SAT 99–100
[~2017-06-16] VITALS: Ht 152.4 cm; Wt 46.3 kg
[2017-06-16] MEDS ORDERED: SODIUM CHLOR 0.9% 1000 ML INJ 1,000 ML IV SCH (12:49)
[2017-06-16] MEDS ORDERED: SODIUM CHLORIDE 0.9% FLUSH 10 ML FLUSH IV FLUSH PRN ×3 (13:00→18:30)
[2017-06-16] MEDS ORDERED: ALUMINUM/MAGNESIUM/SIMETH 30 ML CUP PO ONE (13:00)
[2017-06-16] MEDS ORDERED: PROCHLORPERAZINE INJ 10 MG/2 ML VIAL IV PUSH ONE (13:00)
[2017-06-16] MEDS ORDERED: PANTOPRAZOLE SODIUM 40 MG VIAL IVP ONE (13:00)
[2017-06-16] MEDS ORDERED: diphenhydrAMINE HCL 50 MG/ML VIAL IV PUSH ONE (13:00)
[2017-06-16] MEDS ORDERED: LIDOCAINE VISCOUS 2% SOLN 15 ML UDC PO ONE (13:00)
[2017-06-16 13:44] LABS: AUTOMATED NEUTROPHIL # 10.5 TH/MM3 (1.8-7.7); BASOPHIL % 0.2 % (0.0-2.0); EOSINOPHIL % 0.2 % (0.0-4.0); HEMATOCRIT 43.2 % (35.0-46.0); HEMO FLAGS DIFF FINAL; LYMPH % 7.7 % (9.0-44.0); LYMPHOCYTE # 0.9 TH/MM3 (1.0-4.8); MEAN CELL VOLUME 87.1 FL (80.0-100.0); MEAN CORPUSCULAR HEMOGLOBIN 29.6 PG (27.0-34.0); MONO % 5.8 % (0.0-8.0); NEUT % 86.1 % (16.0-70.0); PLATELET COUNT 248 TH/MM3 (150-450); RED BLOOD COUNT 4.96 MIL/MM3 (4.00-5.30); RED CELL DISTRIBUTION WIDTH 12.5 % (11.6-17.2); WHITE BLOOD COUNT 12.2 TH/MM3 (4.0-11.0)
[2017-06-16 13:59] LABS: ANION GAP 12 MEQ/L (5-15); AST (GOT) 26 U/L (16-38); BICARBONATE 20.5 MEQ/L (21.0-32.0); BLOOD UREA NITROGEN 7 MG/DL (7-18); CHLORIDE 105 MEQ/L (98-107); GLOMERULAR FILTRATION RATE 97 ML/MIN (>89); POTASSIUM 3.1 MEQ/L (3.5-5.1); SODIUM (NA) 137 MEQ/L (136-145)
[2017-06-16 14:03] LABS: ALKALINE PHOSPHATASE 45 U/L (45-117); ALT (GPT) 25 U/L (9-42); TOTAL BILIRUBIN ADULT 0.5 MG/DL (0.2-1.0)
[2017-06-16] MEDS ORDERED: HYDROmorphone HCL PF 1 MG/ML VIAL IV PUSH ONE (14:45)
[2017-06-16] MEDS ORDERED: METOCLOPRAMIDE HCL 10 MG/2 ML VIAL IV PUSH ONE (14:45)
--- NOTE | 2017-06-16 14:51 | PD ---
HPI Chief Complaint: Abdominal Pain Time Seen by Provider: 12:42 Travel History International Travel<30 days: No Contact w/Intl Traveler<30days: No Traveled to known affect area: No History of Present Illness HPI 21 yo F c/o abdominal pain and constant nausea with vomiting for past seven days. Once monthly vomiting episodes reported for past several months. She was discharged following admission for intractable n/v. Endoscopy revealed esophagitis and duodenitis. She was discharged with Phenergan. She reports no relief. There was no gastric outlet obstruction. She has no urinary complaints. No vaginal bleeding or discharge. Last vision was only prior. She denies chest medical history otherwise. No diarrhea. Pt traveled in [facility] seven months ago. [facility] Past Medical History Medical History: Denies Significant Hx Cancer: No Cardiovascular Problems: No Diminished Hearing: No Endocrine: No Gastrointestinal Disorders: Yes (7 MONTH VOMITING) Genitourinary: No Immune Disorder: No Musculoskeletal: No Neurologic: No Psychiatric: No Reproductive: No Respiratory: No Immunizations Current: Yes ?: Not LMP: 06/07/17 Past Surgical History Surgical History: No Previous Surgery Other Surgery: No Social History Alcohol Use: Yes (RARE) Tobacco Use: No Substance Use: No Allergies-Medications (Allergen,Severity, Reaction): Coded Allergies: No Known Allergies (Unverified , 06/16/17) Reported Meds & Prescriptions Reported Meds & Active Scripts Active Protonix (Pantoprazole Sodium) 40 Mg Tab 40 Mg PO DAILY 30 Days Phenergan (Promethazine HCl) 25 Mg Tablet 25 Mg PO Q8HR PRN Review of Systems Except as stated in HPI: all other systems reviewed are Neg General / Constitutional: No: Fever Gastrointestinal: Positive: Abdominal Pain Physical Exam Narrative GENERAL: Well-nourished 21-year-old female male moderate distress secondary to nausea and or pain, green emesis bag with expectorant SKIN: Warm and dry. HEAD: Atraumatic. Normocephalic. EYES: Pupils equal and round. No scleral icterus. No injection or drainage. ENT: No nasal bleeding or discharge. Mucous membranes pink and moist. NECK: Trachea midline. No JVD. CARDIOVASCULAR: Regular rate and rhythm. RESPIRATORY: No accessory muscle use. Clear to auscultation. Breath sounds equal bilaterally. GASTROINTESTINAL: Soft. No focus of tenderness. MUSCULOSKELETAL: Extremities without clubbing, cyanosis, or edema. No obvious deformities. NEUROLOGICAL: Awake and alert. No obvious cranial nerve deficits. Motor grossly within normal limits. Five out of 5 muscle strength in the arms and legs. Normal speech. PSYCHIATRIC: Appropriate mood and affect; insight and judgment normal. Data Data Last Documented VS Vital Signs Date Time Temp Pulse Resp B/P (MAP) Pulse Ox O2 Delivery O2 Flow Rate FiO2 06/16/17 13:19 97.9 94 16 126/72 (90) 100 Room Air Vital signs reviewed Orders Orders Complete Blood Count With Diff (06/16/17 12:49) Comprehensive Metabolic Panel (06/16/17 12:49) Lipase (06/16/17 12:49) Lactic Acid (06/16/17 12:49) Urinalysis - C+S If Indicated (06/16/17 12:49) Iv Access Insert/Monitor (06/16/17 12:49) Ecg Monitoring (06/16/17 12:49) Oximetry (06/16/17 12:49) Pantoprazole Inj (Protonix Inj) (06/16/17 13:00) Sodium Chlor 0.9% 1000 Ml Inj (Ns 1000 M (06/16/17 12:49) Sodium Chloride 0.9% Flush (Ns Flush) (06/16/17 13:00) Al-Mag Hy-Si 40-40-4 Mg/Ml Liq (Mag-Al P (06/16/17 13:00) Lidocaine 2% Viscous (Xylocaine 2% Visco (06/16/17 13:00) Prochlorperazine Inj (Compazine Inj) (06/16/17 13:00) Diphenhydramine Inj (Benadryl Inj) (06/16/17 13:00) Metoclopramide Inj (Reglan Inj) (06/16/17 14:45) Hydromorphone Pf Inj (Dilaudid Pf Inj) (06/16/17 14:45) Sodium Chlor 0.9% 1000 Ml Inj (Ns 1000 M (06/16/17 15:45) Magnesium (Mg) (06/16/17 16:10) Admit Order (Ed Use Only) (06/16/17 16:10) Labs Laboratory Tests Test 06/16/17 13:35 06/16/17 14:45 White Blood Count 12.2 TH/MM3 Red Blood Count 4.96 MIL/MM3 Hemoglobin 14.7 GM/DL Hematocrit 43.2 % Mean Corpuscular Volume 87.1 FL Mean Corpuscular Hemoglobin 29.6 PG Mean Corpuscular Hemoglobin Concent 34.0 % Red Cell Distribution Width 12.5 % Platelet Count 248 TH/MM3 Mean Platelet Volume 8.1 FL Neutrophils (%) (Auto) 86.1 % Lymphocytes (%) (Auto) 7.7 % Monocytes (%) (Auto) 5.8 % Eosinophils (%) (Auto) 0.2 % Basophils (%) (Auto) 0.2 % Neutrophils # (Auto) 10.5 TH/MM3 Lymphocytes # (Auto) 0.9 TH/MM3 Monocytes # (Auto) 0.7 TH/MM3 Eosinophils # (Auto) 0.0 TH/MM3 Basophils # (Auto) 0.0 TH/MM3 CBC Comment DIFF FINAL Differential Comment Blood Urea Nitrogen 7 MG/DL Creatinine 0.77 MG/DL Random Glucose 112 MG/DL Total Protein 8.1 GM/DL Albumin 4.4 GM/DL Calcium Level 9.4 MG/DL Alkaline Phosphatase 45 U/L Aspartate Amino Transf (AST/SGOT) 26 U/L Alanine Aminotransferase (ALT/SGPT) 25 U/L Total Bilirubin 0.5 MG/DL Sodium Level 137 MEQ/L Potassium Level 3.1 MEQ/L Chloride Level 105 MEQ/L Carbon Dioxide Level 20.5 MEQ/L Anion Gap 12 MEQ/L Estimat Glomerular Filtration Rate 97 ML/MIN Lactic Acid Level 1.8 mmol/L Lipase 224 U/L Urine Color YELLOW Urine Turbidity CLEAR Urine pH 8.0 Urine Specific [place] 1.018 Urine Protein TRACE mg/dL Urine Glucose (UA) NEG mg/dL Urine Ketones 80 mg/dL Urine Occult Blood NEG Urine Nitrite NEG Urine Bilirubin NEG Urine Urobilinogen LESS THAN 2.0 MG/DL Urine Leukocyte Esterase TRACE Urine WBC 3 /hpf Urine Squamous Epithelial Cells 3 /hpf Urine Mucus FEW /lpf Microscopic Urinalysis Comment CULT NOT INDICATED MDM Medical Decision Making Medical Screen Exam Complete: Yes Emergency Medical Condition: Yes Medical Record Reviewed: Yes Differential Diagnosis Constipation, Gastritis, Acute Cholecystitis, Biliary Colic, Pancreatitis, PAUL , Hepatitis, Bowel Obstruction, Cystitis, Mesenteric Ischemia, AAA, Appendicitis , Renal Stone/Hydronephrosis, GERD, perforated viscous Narrative Course CBC & BMP Diagram 06/16/17 13:35 Total Protein 8.1, Albumin 4.4, Calcium Level 9.4, Alkaline Phosphatase 45, Aspartate Amino Transf (AST/SGOT) 26, Alanine Aminotransferase (ALT/SGPT) 25, Total Bilirubin 0.5 Lactic acid 1.8 Lipase 222 Compazine/Benadryl - persistent vomiting 2L NS 0.5mg hydromorphone Reglan - good vomiting control Pt's mother reports travel to [facility] in October. Admission for intractable nausea and vomiting. Consult to ID - call placed to Dr Lomax at 4:00pm. Changed to Dr See - d/ w Dr See at 5:05pm. d/w Dr Cheung for [facility] Case management for establishment of outpatient follow up. Diagnosis Primary Impression: Vomiting Qualified Codes: R11.10 - Vomiting, unspecified Additional Impressions: Abdominal pain Qualified Codes: R10.13 - Epigastric pain Esophagitis Duodenitis Hypokalemia Admitting Information Admitting Physician Requests: Admit Dexter Watkins MD Jun 16, 2017 14:51
[2017-06-16 15:11] LABS: BLOOD, URINE NEG (NEG); COMMENT (UR) CULT NOT INDICATED; CULTURE IF INDICATED CULT NOT INDICATED; GLUCOSE,URINE NEG (NEG); KETONE, URINE 80 mg/dL (NEG); MUCUS URINE FEW /lpf (OCC); NITRITE,URINE NEG (NEG); SQUAMOUS EPITHELIAL CELL URINE 3 /hpf (0-5); URINE COLOR YELLOW (YELLW/STRAW)
[2017-06-16] MEDS ORDERED: SODIUM CHLOR 0.9% 1000 ML INJ 1,000 ML IV ONE (15:45)
[2017-06-16] MEDS ORDERED: POTASSIUM CHLOR 20 MEQ PREMIX 100 ML IV ONE (16:30)
[2017-06-16] MEDS ORDERED: PROMETHAZINE HCL 25 MG SUPP RECTAL PRN (17:45)
--- NOTE | 2017-06-16 17:47 | HHI.HP ---
[facility] No Primary Care Physician Admission Diagnosis Intractable Vomiting; Abd Pain Diagnoses: (1) Duodenitis Diagnosis: Principal (2) Vomiting Diagnosis: Principal (3) Abdominal pain Diagnosis: Principal (4) Hypokalemia Diagnosis: Secondary (5) Esophagitis Diagnosis: Principal (6) Nausea Diagnosis: Principal (7) Gastric outlet obstruction Diagnosis: Principal Chief Complaint: Nausea and abdominal pain Travel History International Travel<30 Days: No Contact w/Intl Traveler <30 Da: No Traveled to Known Affected Are: No Sepsis Criteria SIRS Criteria (2 or more): Heart rate over 90, WBC > 36626, < 4000 or > 10% bands Criteria Outcome: Meets SIRS criteria History of Present Illness 21-year-old female who presents for recurrent nausea, vomiting, abdominal pain. The patient states that in October she was having symptoms of right-sided abdominal pain, nausea, and vomiting. She went to [facility] and was diagnosed with food poisoning. Since that time she's been having recurrent episodes of these symptoms once or twice a month. She was admitted here earlier this week and was evaluated by GI and had an EGD. She states the Phenergan has been helping the vomiting. She was able to tolerate broth earlier this week, but vomiting recurred today and abdominal pain became significantly worse than it had been. She locates the pain on the right side previously, but now the pain is all over her abdomen. She has been having decreased bowel movements, and whenever she does it is a small amount of stool and loose. She denies any vaginal discharge and her period was last week and irregular. She denies any dysuria. She denies any marijuana use. She did travel to [facility] in September. She had an EGD earlier this week which showed esophagitis and duodenitis and her symptoms were thought to be secondary to gastroenteritis. She has been taking Protonix. Review of Systems Constitutional: DENIES: Diaphoretic episodes, Fatigue, Fever, Weight gain, Weight loss, Chills, Dizziness, Change in appetite Endocrine: COMPLAINS OF: Abnorml menstrual pattern, DENIES: Heat/cold intolerance Eyes: DENIES: Blurred vision, Diplopia, Eye inflammation, Eye pain Ears, nose, mouth, throat: DENIES: Tinnitus, Hearing loss, Vertigo, Nasal discharge Respiratory: DENIES: Apneas, Cough, Snoring, Wheezing, Hemoptysis Cardiovascular: DENIES: Chest pain, Palpitations, Syncope, Dyspnea on Exertion Gastrointestinal: COMPLAINS OF: Abdominal pain, Nausea, Vomiting, DENIES: Black stools, Bloody stools, Constipation, Diarrhea Genitourinary: DENIES: Abnormal vaginal bleeding Musculoskeletal: DENIES: Joint pain, Muscle aches Integumentary: DENIES: Abnormal pigmentation, Pruritus Hematologic/lymphatic: DENIES: Bruising, Lymphadenopathy Immunologic/allergic: DENIES: Eczema, Urticaria Neurologic: DENIES: Abnormal gait, Headache, Localized weakness, Paresthesias Psychiatric: DENIES: Anxiety, Confusion, Mood changes, Depression Except as stated in HPI: all other systems reviewed are Neg Past Family Social History Past Medical History Recent diagnosis of esophagitis and duodenitis Past Surgical History EGD 06/12 Reported Medications Reported Meds & Active Scripts Active Protonix (Pantoprazole Sodium) 40 Mg Tab 40 Mg PO DAILY 30 Days Phenergan (Promethazine HCl) 25 Mg Tablet 25 Mg PO Q8HR PRN Allergies: Coded Allergies: No Known Allergies (Unverified , 06/16/17) Active Ordered Medications Current Medications Medications (Trade) Dose Ordered Sig/Raghavendra Route Start Time Stop Time Status Last Admin (NS Flush) 2 ml UNSCH PRN IV FLUSH 06/16/17 13:00 Potassium Chloride 100 ml @ 50 mls/hr BOLUS ONCE IV 06/16/17 16:30 06/16/17 18:29 06/16/17 17:08 Potassium Chloride/Dextrose/ Sod Cl 1,000 ml @ 80 mls/hr [id number] IV 06/16/17 17:32 UNV (NS Flush) 2 ml UNSCH PRN IV FLUSH 06/16/17 17:45 UNV (NS Flush) 2 ml BID IV FLUSH 06/16/17 21:00 UNV (Zofran Inj) 4 mg Q6H PRN IV PUSH 06/16/17 17:45 UNV (Phenergan Supp) 25 mg Q6H PRN RECTAL 06/16/17 17:45 UNV Family History Reviewed, no family history pertinent to current chief complaint. Denies heart disease, diabetes, cancer. Social History Minimal alcohol use Denies any tobacco or drug use Physical Exam Vital Signs Vital Signs Date Time Temp Pulse Resp B/P (MAP) Pulse Ox O2 Delivery O2 Flow Rate FiO2 06/16/17 17:35 98.2 89 20 131/72 (91) 99 Room Air 06/16/17 13:19 97.9 94 16 126/72 (90) 100 Room Air 06/16/17 11:30 98.2 118 14 132/85 (101) 99 Physical Exam GENERAL: Well-developed well-nourished. In no acute distress. SKIN: Warm and dry. No lesions noted. HEENT: Normocephalic. Pupils equal and round. Mucous membranes pink and moist. Extraocular muscles are grossly intact CARDIOVASCULAR: Regular rate and rhythm. No murmur appreciated. S1 and S2 no S3 or S4 RESPIRATORY: No accessory muscle use. Clear to auscultation. Breath sounds equal bilaterally. GASTROINTESTINAL: Abdomen soft, nondistended. Mild generalized TTP, no rebound tenderness. Bowel sounds x4. MUSCULOSKELETAL: No obvious deformities. No clubbing or cyanosis. No edema. NEUROLOGICAL: Awake and alert. No focal neurological deficits. Moves upper and lower extremities spontaneously. Normal speech. PSYCHIATRIC: Appropriate mood and affect; insight and judgment normal. Laboratory Laboratory Tests Test 06/16/17 13:35 06/16/17 14:45 White Blood Count 12.2 Red Blood Count 4.96 Hemoglobin 14.7 Hematocrit 43.2 Mean Corpuscular Volume 87.1 Mean Corpuscular Hemoglobin 29.6 Mean Corpuscular Hemoglobin Concent 34.0 Red Cell Distribution Width 12.5 Platelet Count 248 Mean Platelet Volume 8.1 Neutrophils (%) (Auto) 86.1 Lymphocytes (%) (Auto) 7.7 Monocytes (%) (Auto) 5.8 Eosinophils (%) (Auto) 0.2 Basophils (%) (Auto) 0.2 Neutrophils # (Auto) 10.5 Lymphocytes # (Auto) 0.9 Monocytes # (Auto) 0.7 Eosinophils # (Auto) 0.0 Basophils # (Auto) 0.0 CBC Comment DIFF FINAL Differential Comment Blood Urea Nitrogen 7 Creatinine 0.77 Random Glucose 112 Total Protein 8.1 Albumin 4.4 Calcium Level 9.4 Alkaline Phosphatase 45 Aspartate Amino Transf (AST/SGOT) 26 Alanine Aminotransferase (ALT/SGPT) 25 Total Bilirubin 0.5 Sodium Level 137 Potassium Level 3.1 Chloride Level 105 Carbon Dioxide Level 20.5 Anion Gap 12 Estimat Glomerular Filtration Rate 97 Lactic Acid Level 1.8 Lipase 224 Urine Color YELLOW Urine Turbidity CLEAR Urine pH 8.0 Urine Specific [place] 1.018 Urine Protein TRACE Urine Glucose (UA) NEG Urine Ketones 80 Urine Occult Blood NEG Urine Nitrite NEG Urine Bilirubin NEG Urine Urobilinogen LESS THAN 2.0 Urine Leukocyte Esterase TRACE Urine WBC 3 Urine Squamous Epithelial Cells 3 Urine Mucus FEW Microscopic Urinalysis Comment CULT NOT INDICATED Result Diagram: 06/16/17133406/16/171334 Caprini VTE Risk Assessment Caprini VTE Risk Assessment: No/Low Risk (score <= 1) Caprini Risk Assessment Model Point Value = 1 Point Value = 2 Point Value = 3 Point Value = 5 Age 41-60 Minor surgery BMI > 25 kg/m2 Swollen legs Varicose veins or History of unexplained or recurrent spontaneous Oral contraceptives or hormone replacement Sepsis (< 1 month) Serious lung disease, including pneumonia (< 1 month) Abnormal pulmonary function Acute myocardial infarction Congestive heart failure (< 1 month) History of inflammatory bowel disease Medical patient at bed rest Age 61-74 Arthroscopic surgery Major open surgery (> 45 min) Laparoscopic surgery (> 45 min) Malignancy Confined to bed (> 72 hours) Immobilizing plaster cast Central venous access Age >= 75 History of VTE Family history of VTE Factor V Leiden Prothrombin [id number] Lupus anticoagulant Anticardiolipin antibodies Elevated serum homocysteine Heparin-induced thrombocytopenia Other congenital or acquired thrombophilia Stroke (< 1 month) Elective arthroplasty Hip, pelvis, or leg fracture Acute spinal cord injury (< 1 month) Prophylaxis Regimen Total Risk Factor Score Risk Level Prophylaxis Regimen 0-1 Low Early ambulation 2 Moderate Order ONE of the following: *Sequential Compression Device (SCD) *Heparin 5000 units SQ BID 3-4 Higher Order ONE of the following medications: *Heparin 5000 units SQ TID *Enoxaparin/Lovenox 40 mg SQ daily (WT < 150 kg, CrCl > 30 mL/min) *Enoxaparin/Lovenox 30 mg SQ daily (WT < 150 kg, CrCl > 10-29 mL/min) *Enoxaparin/Lovenox 30 mg SQ BID (WT < 150 kg, CrCl > 30 mL/min) AND/OR *Sequential Compression Device (SCD) 5 or more Highest Order ONE of the following medications: *Heparin 5000 units SQ TID (Preferred with Epidurals) *Enoxaparin/Lovenox 40 mg SQ daily (WT < 150 kg, CrCl > 30 mL/min) *Enoxaparin/Lovenox 30 mg SQ daily (WT < 150 kg, CrCl > 10-29 mL/min) *Enoxaparin/Lovenox 30 mg SQ BID (WT < 150 kg, CrCl > 30 mL/min) AND *Sequential Compression Device (SCD) Assessment and Plan Assessment and Plan 21-year-old female who presents for recurrent nausea, vomiting, abdominal pain Intractable nausea, vomiting, abdominal pain: Possibly cyclic vomiting. Reviewed: EGD 06/12 showed esophagitis and duodenitis with pathology showing chronic reflux. -IVF -Antiemetics as needed -Per previous GI note, will check small bowel series -Consult gastroenterology -Clear liquids for now -Check UDS to rule out marijuana use SIRS: WBC 12.2. Tachycardia. UA clear. Family concerned that symptoms started after travel to [place] -Follow up stool studies collected 06/15. -Consult ID -Follow up CBC Hypokalemia: Potassium 3.1 secondary to vomiting as above. Given IV replacement in the ED. -Follow up BMP and magnesium level DVT prophylaxis: SCDs Code Status Full code Discussed Condition With Patient with family at bedside, Dr. Cheung Discussed with the ER and patient and family and RN Attending Statement The exam, history, and the medical decision-making described in the above note were completed with the assistance of the mid-level provider. I reviewed and agree with the findings presented. I attest that I had a [id number] encounter with the patient on the same day, and personally performed and documented my assessment and findings in the medical record. Problem Qualifiers (1) Vomiting: Qualified Codes: R11.10 - Vomiting, unspecified (2) Abdominal pain: Qualified Codes: R10.13 - Epigastric pain Rashaun Brennan Jun 16, 2017 17:47 Marcel Cheung DO Jun 16, 2017 18:06
[2017-06-16] MEDS ORDERED: NALOXONE HCL 0.4 MG/ML AMP IV PUSH PRN (18:30)
[2017-06-16] MEDS ORDERED: SENNOSIDES 8.6 MG TAB PO PRN (18:30)
[2017-06-16] MEDS ORDERED: BISACODYL 10 MG SUPP RECTAL PRN (18:30)
[2017-06-16] MEDS ORDERED: LACTULOSE SYRUP 20 GM/30 ML CUP PO PRN (18:30)
[2017-06-16] MEDS ORDERED: MAGNESIUM HYDROXIDE SUSP 30 ML CUP PO PRN (18:30)
[2017-06-16] MEDS: D5-1/2 NS + KCL 20 MEQ INJ 1,000 ML IV SCH (19:00)
[2017-06-16] MEDS: HYDROmorphone HCL PF 1 MG/ML VIAL IV PUSH PRN ×2 (19:15→22:04)
[2017-06-16] MEDS: ONDANSETRON HCL 4 MG/2 ML VIAL IV PUSH PRN (19:15)
--- NOTE | 2017-06-16 19:45 | PD.ID.CON ---
History of Present Illness Service ID Consult Requested By Dr.Peterson Moser Reason for Consult Evaluation and Mment of possible Infectious Gastroenteritis. Primary Care Physician No Primary Care Physician Diagnoses: History of Present Illness is a 21 /o CF with travel to [facility] in Sep 2015 for 2.5 weeks for farm tours ([employer] [employer] [place]). Patient is a pre-schoolhigh school combination teacher by profession. She presented to ED 06/11/17 with Nausea, vomiting and reported h/o diarrhea 2-3 BMs semiformed to liquid. She reports these symptoms have been present off and on since October since she returned to [place]. She went to [facility] and was treated for possible food poisoning. She reports these symptoms occur 2-3 times per month. She was recently admitted and underwent EGD. Path from EGD with no H.pylori. 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 In addition, path also showed minimally active chronic antral gastritis but H.pylori. She was prescribed protonix and reports being compliant. She returns to the ED with persistent nausea and vomiting. ID has been consulted for evaluation and Mment of Infectious gastroenteritis. The CT A/P shows hyperplasia of pyloric lesion ? peristalsis vs mass. Gi has been consulted. No reported h/o chronic cough to suggest migrating ascaris. No h/o passing worms. No h/o fever, chills, or night sweats. Review of Systems Constitutional: DENIES: Diaphoretic episodes, Fatigue, Fever, Weight gain, Weight loss, Chills, Dizziness, Change in appetite, Night Sweats Endocrine: DENIES: Abnorml menstrual pattern, Heat/cold intolerance, Polydipsia , Polyuria, Polyphagia Eyes: DENIES: Blurred vision, Diplopia, Eye inflammation, Eye pain, Vision loss , Photosensitivity, Double Vision Ears, nose, mouth, throat: DENIES: Tinnitus, Hearing loss, Vertigo, Nasal discharge, Oral lesions, Throat pain, Hoarseness, Ear Pain, Running Nose, Epistaxis, Sinus Pain, Toothache, Odynophagia Respiratory: DENIES: Apneas, Cough, Snoring, Wheezing, Hemoptysis, Sputum production, Shortness of breath Cardiovascular: DENIES: Chest pain, Palpitations, Syncope, Dyspnea on Exertion , PND, Lower Extremity Edema, Orthopnea, Claudication Gastrointestinal: COMPLAINS OF: Abdominal pain, Diarrhea, Nausea, Vomiting Genitourinary: DENIES: Abnormal vaginal bleeding, Dysmenorrhea, Dyspareunia, Sexual dysfunction, Urinary frequency, Urinary incontinence, Urgency, Hematuria , Dysuria, Nocturia, Vaginal discharge Musculoskeletal: DENIES: Joint pain, Muscle aches, Stiffness, Joint Swelling, Back pain, Neck pain Integumentary: DENIES: Abnormal pigmentation, Pruritus, Rash, Nail changes, Breast masses, Breast skin changes, Nipple discharge Hematologic/lymphatic: DENIES: Bruising, Lymphadenopathy Immunologic/allergic: DENIES: Eczema, Urticaria Neurologic: DENIES: Abnormal gait, Headache, Localized weakness, Paresthesias, Seizures, Speech Problems, Tremor, Poor Balance Psychiatric: DENIES: Anxiety, Confusion, Mood changes, Depression, Hallucinations, Agitation, Suicidal Ideation, Homicidal Ideation, Delusions Except as stated in HPI: all other systems reviewed are Neg Past Family Social History Allergies: Coded Allergies: No Known Allergies (Unverified , 06/16/17) Past Medical History Reflux esophagitis Gastritis Past Surgical History None Reported Medications Reported Meds & Active Scripts Active Protonix (Pantoprazole Sodium) 40 Mg Tab 40 Mg PO DAILY 30 Days Phenergan (Promethazine HCl) 25 Mg Tablet 25 Mg PO Q8HR PRN Active Ordered Medications Current Medications Medications (Trade) Dose Ordered Sig/Raghavendra Route Start Time Stop Time Status Last Admin Potassium Chloride/Dextrose/ Sod Cl 1,000 ml @ 80 mls/hr [id number] IV 06/16/17 19:00 (NS Flush) 2 ml UNSCH PRN IV FLUSH 06/16/17 17:45 (NS Flush) 2 ml BID IV FLUSH 06/16/17 21:00 (Zofran Inj) 4 mg Q6H PRN IV PUSH 06/16/17 17:45 06/16/17 19:15 (Phenergan Supp) 25 mg Q6H PRN RECTAL 06/16/17 17:45 Sodium Chloride 1,000 ml @ 100 mls/hr Q10H IV 06/16/17 20:00 (NS Flush) 2 ml UNSCH PRN IV FLUSH 06/16/17 18:30 (NS Flush) 2 ml BID IV FLUSH 06/16/17 21:00 (Tylenol) 650 mg Q4H PRN PO 06/16/17 20:00 (Zofran Inj) 4 mg Q6H PRN IVP 06/16/17 20:00 (Reglan Inj) 5 mg Q6H PRN IV PUSH 06/16/17 20:00 (Compazine Supp) 25 mg Q12H PRN RECTAL 06/16/17 20:00 (Ambien) 5 mg HS PRN PO 06/16/17 20:00 (Tylenol) 650 mg Q6H PRN PO 06/16/17 20:00 (Percocet 5-325 Mg) 1 tab Q6H PRN PO 06/16/17 20:00 (Percocet 10-325 Mg) 1 tab Q6H PRN PO 06/16/17 20:00 (Dilaudid Pf Inj) 0.5 mg Q3H PRN IV PUSH 06/16/17 20:00 (Dilaudid Pf Inj) 1 mg Q3H PRN IV PUSH 06/16/17 20:00 06/16/17 19:15 (Dilaudid Pf Inj) 1 mg Q3H PRN IV PUSH 06/16/17 20:00 (Narcan Inj) 0.4 mg UNSCH PRN IV PUSH 06/16/17 18:30 (Michelle-Colace) 1 tab BID PO 06/16/17 21:00 (Milk Of Magnesia Liq) 30 ml Q12H PRN PO 06/16/17 18:30 (Senokot) 17.2 mg Q12H PRN PO 06/16/17 18:30 (Dulcolax Supp) 10 mg DAILY PRN RECTAL 06/16/17 18:30 (Lactulose Liq) 30 ml DAILY PRN PO 06/16/17 18:30 (Carafate Liq) 1 gm ACHS PO 06/16/17 21:00 UNV Family History reviewed and NC. No h/o congenital pyloric stenosis. Social History Occ sips of alcohol. No smoking No drugs. Lives in [place]. Loves to go into the [place] and play with dirt. Physical Exam Vital Signs Vital Signs Date Time Temp Pulse Resp B/P (MAP) Pulse Ox O2 Delivery O2 Flow Rate FiO2 06/16/17 19:29 99 06/16/17 17:35 98.2 89 20 131/72 (91) 99 Room Air 06/16/17 13:19 97.9 94 16 126/72 (90) 100 Room Air 06/16/17 11:30 98.2 118 14 132/85 (101) 99 Physical Exam GENERAL: This is a well-nourished, well-developed patient, in no apparent distress. SKIN: No rashes, ecchymoses or lesions. Cool and dry. HEAD: Atraumatic. Normocephalic. No temporal or scalp tenderness. EYES: Pupils equal round and reactive. Extraocular motions intact. No scleral icterus. No injection or drainage. ENT: Nose without bleeding, purulent drainage or septal hematoma. Throat without erythema, tonsillar hypertrophy or exudate. Uvula midline. Airway patent. NECK: Trachea midline. No JVD or lymphadenopathy. Supple, nontender, no meningeal signs. CARDIOVASCULAR: Regular rate and rhythm without murmurs, gallops, or rubs. RESPIRATORY: Clear to auscultation. Breath sounds equal bilaterally. No wheezes , rales, or rhonchi. GASTROINTESTINAL: Abdomen soft, non-tender, nondistended. No hepato-splenomegaly , or palpable masses. No guarding. MUSCULOSKELETAL: Extremities without clubbing, cyanosis, or edema. No joint tenderness, effusion, or edema noted. No calf tenderness. Negative Homans sign bilaterally. NEUROLOGICAL: Awake and alert. Cranial nerves II through XII intact. Motor and sensory grossly within normal limits. Five out of 5 muscle strength in all muscle groups. Normal speech. Psych cooperative IV line sites with no e.o infection. Laboratory Laboratory Tests Test 06/16/17 13:35 06/16/17 14:45 White Blood Count 12.2 Red Blood Count 4.96 Hemoglobin 14.7 Hematocrit 43.2 Mean Corpuscular Volume 87.1 Mean Corpuscular Hemoglobin 29.6 Mean Corpuscular Hemoglobin Concent 34.0 Red Cell Distribution Width 12.5 Platelet Count 248 Mean Platelet Volume 8.1 Neutrophils (%) (Auto) 86.1 Lymphocytes (%) (Auto) 7.7 Monocytes (%) (Auto) 5.8 Eosinophils (%) (Auto) 0.2 Basophils (%) (Auto) 0.2 Neutrophils # (Auto) 10.5 Lymphocytes # (Auto) 0.9 Monocytes # (Auto) 0.7 Eosinophils # (Auto) 0.0 Basophils # (Auto) 0.0 CBC Comment DIFF FINAL Differential Comment Blood Urea Nitrogen 7 Creatinine 0.77 Random Glucose 112 Total Protein 8.1 Albumin 4.4 Calcium Level 9.4 Alkaline Phosphatase 45 Aspartate Amino Transf (AST/SGOT) 26 Alanine Aminotransferase (ALT/SGPT) 25 Total Bilirubin 0.5 Sodium Level 137 Potassium Level 3.1 Chloride Level 105 Carbon Dioxide Level 20.5 Anion Gap 12 Estimat Glomerular Filtration Rate 97 Lactic Acid Level 1.8 Magnesium Level 1.8 Lipase 224 Urine Color YELLOW Urine Turbidity CLEAR Urine pH 8.0 Urine Specific [place] 1.018 Urine Protein TRACE Urine Glucose (UA) NEG Urine Ketones 80 Urine Occult Blood NEG Urine Nitrite NEG Urine Bilirubin NEG Urine Urobilinogen LESS THAN 2.0 Urine Leukocyte Esterase TRACE Urine WBC 3 Urine Squamous Epithelial Cells 3 Urine Mucus FEW Microscopic Urinalysis Comment CULT NOT INDICATED Result Diagram: 06/16/17 1335 06/16/17 1335 Assessment and Plan Assessment and Plan Gastritis Gastroenteritis (N,V,Diarrhea) Reflux esophagitis Recs No antibiotics or anti parasite agents. Peripheral smear for malaria (at patient request to rule out) Stool O&P, Cyclospora, Giardia, cryptosporidium. Follow above studies. Does not appear to be infectious etiology but will rule out common parasites. Carafate for gastritis. PPI. to cover for me prn. If stool studies negative and clinically improved with carafate and PPI ok to discharge from ID standpoint. Shelbi See MD Jun 16, 2017 19:45
[2017-06-16] MEDS ORDERED: oxyCODONE/ACETAMINOPHEN 5 MG/325 MG TAB PO PRN (20:00)
[2017-06-16] MEDS ORDERED: ACETAMINOPHEN 325 MG TAB PO PRN ×2 (20:00)
[2017-06-16] MEDS ORDERED: PROCHLORPERAZINE 25 MG SUPP RECTAL PRN (20:00)
[2017-06-16] MEDS ORDERED: HYDROmorphone HCL PF 1 MG/ML VIAL IV PUSH PRN (20:00)
[2017-06-16] MEDS ORDERED: oxyCODONE/ACETAMINOPHEN 10 MG/325 MG TAB PO PRN (20:00)
[2017-06-16] MEDS ORDERED: DIATRIZOATE MEGLUM/DIATRIZOATE SOD 120 ML BTL (for RAD DIAG) PO ONE (20:56)
[2017-06-16] MEDS: METOCLOPRAMIDE HCL 10 MG/2 ML VIAL IV PUSH PRN (20:57)
[2017-06-16] MEDS: SUCRALFATE 1 GM/10 ML CUP PO SCH (21:00)
[2017-06-16] MEDS: DOCUSATE SODIUM 50 MG/SENNA 8.6 MG TAB PO SCH (21:00)
[2017-06-16] MEDS: SODIUM CHLORIDE 0.9% FLUSH 10 ML FLUSH IV FLUSH SCH ×2 (21:00)
--- NOTE | 2017-06-16 21:57 | RADRPT ---
EXAM DATE/TIME: 06/16/2017 20:29 [facility] COMPARISON: No previous studies available for comparison. INDICATIONS : Abdominal pain, vomiting for 6 days FLUORO TIME: 0.4 minutes IMAGE COUNT: 9 CONTRAST: [facility] IMAGING TIME(S): 15 min, 30 min, 45 min, 1 hr MEDICAL HISTORY : None. SURGICAL HISTORY : None. ENCOUNTER: Initial ACUITY: 4 - 6 days PAIN SCORE: 6/10 LOCATION: Bilateral abdomen FINDINGS: Initial rotor pilot radiograph shows a nonobstructive bowel gas pattern. No free air. Mild S. shaped thorac olumbar curvature noted. Stomach has a normal appearance. Examination of the small bowel demonstrates normal mucosal pattern involving the jejunum and ileum. There is no evidence of mass or obstruction. No intraluminal filling defects are identified. Small bowel transit time is normal at 60 minutes. Fluoroscopy of the abdomen and terminal ileum demonstrat es no abnormality. CONCLUSION: Normal small bowel follow-through. No obstruction or other acute abnormality. Kevin Stout MD on June 16, 2017 at 21:54 Board Certified Radiologist. This report was verified electronically.
[2017-06-16] MEDS: PANTOPRAZOLE SODIUM 40 MG VIAL IV PUSH SCH (22:13)
[2017-06-16] MEDS: SODIUM CHLOR 0.9% 1000 ML INJ 1,000 ML IV SCH (23:00)
[2017-06-17] VITALS (9 sets, daily range): BP systolic 95–120; BP diastolic 51–68; PULSE 62–95; RESP 14–16; TEMP 96.6–98.2; O2SAT 97–100
[2017-06-17] MEDS ORDERED: LOPERAMIDE HCL 2 MG CAP PO ONE (00:15)
[2017-06-17] MEDS: HYDROmorphone HCL PF 1 MG/ML VIAL IV PUSH PRN ×4 (00:20→08:28)
[2017-06-17] MEDS: ONDANSETRON HCL 4 MG/2 ML VIAL IV PUSH PRN ×3 (03:20→15:07)
[2017-06-17] MEDS: METOCLOPRAMIDE HCL 10 MG/2 ML VIAL IV PUSH PRN ×4 (05:17→22:36)
[2017-06-17] MEDS: SUCRALFATE 1 GM/10 ML CUP PO SCH ×4 (05:19→20:12)
[2017-06-17] MEDS: SODIUM CHLOR 0.9% 1000 ML INJ 1,000 ML IV SCH ×3 (06:00→23:00)
[2017-06-17] MEDS: D5-1/2 NS + KCL 20 MEQ INJ 1,000 ML IV SCH ×2 (07:30→20:00)
[2017-06-17 07:48] LABS: AUTOMATED NEUTROPHIL # 6.6 TH/MM3 (1.8-7.7); BASOPHIL % 0.4 % (0.0-2.0); EOSINOPHIL # 0.1 TH/MM3 (0-0.4); EOSINOPHIL % 0.7 % (0.0-4.0); HEMO FLAGS DIFF FINAL; LYMPH % 21.7 % (9.0-44.0); LYMPHOCYTE # 2.1 TH/MM3 (1.0-4.8); MEAN CELL VOLUME 89.5 FL (80.0-100.0); MEAN CORPUSCULAR HEMOGLOBIN 30.1 PG (27.0-34.0); MEAN CORPUSCULAR HGB CONC 33.6 % (32.0-36.0); MONO % 8.9 % (0.0-8.0); NEUT % 68.3 % (16.0-70.0); PLATELET COUNT 193 TH/MM3 (150-450); RED BLOOD COUNT 3.69 MIL/MM3 (4.00-5.30); RED CELL DISTRIBUTION WIDTH 12.7 % (11.6-17.2); WHITE BLOOD COUNT 9.7 TH/MM3 (4.0-11.0)
[2017-06-17] MEDS: DOCUSATE SODIUM 50 MG/SENNA 8.6 MG TAB PO SCH ×2 (08:16→20:17)
[2017-06-17 08:27] LABS: ALKALINE PHOSPHATASE 35 U/L (45-117); ALT (GPT) 16 U/L (9-42); ANION GAP 7 MEQ/L (5-15); AST (GOT) 15 U/L (16-38); BICARBONATE 24.6 MEQ/L (21.0-32.0); BLOOD UREA NITROGEN 5 MG/DL (7-18); CHLORIDE 108 MEQ/L (98-107); FREE T4 1.27 NG/DL (0.76-1.46); GLOMERULAR FILTRATION RATE 117 ML/MIN (>89); MAGNESIUM 1.9 MG/DL (1.5-2.5); POTASSIUM 3.3 MEQ/L (3.5-5.1); SODIUM (NA) 140 MEQ/L (136-145); TOTAL BILIRUBIN ADULT 0.5 MG/DL (0.2-1.0)
[2017-06-17] MEDS: PANTOPRAZOLE SODIUM 40 MG VIAL IV PUSH SCH ×2 (08:27→20:12)
[2017-06-17] MEDS: SODIUM CHLORIDE 0.9% FLUSH 10 ML FLUSH IV FLUSH SCH ×4 (08:38→20:17)
--- NOTE | 2017-06-17 09:47 | HHI.PR ---
Subjective Remarks Patient requested Imodium. State diarrhea is persisting this morning but Imodium worked for her last night. Persistent nausea but no vomiting. We discussed weaning off pain medications. The patient denies any anxiety or depression. Objective Vitals Vital Signs Date Time Temp Pulse Resp B/P (MAP) Pulse Ox O2 Delivery O2 Flow Rate FiO2 06/17/17 08:00 98.0 62 16 95/51 (66) 99 06/17/17 06:50 19 06/17/17 05:29 70 06/17/17 04:00 20 06/17/17 04:00 96.6 80 16 101/67 (78) 99 06/17/17 00:00 98.2 95 16 120/68 (85) 100 06/16/17 20:00 98.3 94 17 129/84 (99) 100 06/16/17 19:29 99 06/16/17 18:45 98.2 93 18 135/81 (99) 99 06/16/17 17:35 98.2 89 20 131/72 (91) 99 Room Air 06/16/17 13:19 97.9 94 16 126/72 (90) 100 Room Air 06/16/17 11:30 98.2 118 14 132/85 (101) 99 I/O 06/16/17 06/16/17 06/16/17 06/17/17 06/17/17 06/17/17 07:00 15:00 23:00 07:00 15:00 23:00 Intake Total 2960 ml 480 ml Balance 2960 ml 480 ml Intake Oral 960 ml 480 ml IV Total 2000 ml # Voids 3 3 1 # Bowel Movements 2 2 Result Diagram: 06/17/17 0701 06/17/17 0701 Objective Remarks GENERAL: This is a well-nourished, well-developed patient, in no apparent distress. CARDIOVASCULAR: Normal rate and regular rhythm without murmurs, gallops, or rubs. RESPIRATORY: Good respiratory efforts. Breath sounds equal and clear to auscultation bilaterally. GASTROINTESTINAL: Abdomen soft, non-distended, mild diffuse tenderness with palpation. Normal active bowel sounds MUSCULOSKELETAL: Extremities without cyanosis, or edema. NEURO: Alert & Oriented x4 to person, place, time, situation. Moves all ext x4 PSYCH: Appropriate mood and affect. A/P Problem List: (1) Duodenitis ICD Code: K29.80 - Duodenitis without bleeding Status: Acute (2) Vomiting ICD Code: R11.10 - Vomiting, unspecified Status: Acute (3) Abdominal pain ICD Code: R10.9 - Unspecified abdominal pain Status: Acute (4) Hypokalemia ICD Code: E87.6 - Hypokalemia Status: Acute (5) Esophagitis ICD Code: K20.9 - Esophagitis, unspecified Status: Acute (6) Nausea ICD Code: R11.0 - Nausea Status: Acute (7) Gastric outlet obstruction ICD Code: K31.1 - Adult hypertrophic pyloric stenosis Assessment and Plan 21-year-old female who presents for recurrent nausea, vomiting, abdominal pain. This is the patient's third hospitalization this past week with the same complaints. Intractable nausea, vomiting, abdominal pain: Vomiting have resolved. Patient records reviewed. She was previously evaluated by GI, EGD 06/12 showed esophagitis and duodenitis with pathology showing chronic reflux. - Continue with antiemetics, IV fluids. Patient also tested positive for marijuana previously which may contribute to nausea and vomiting. In addition, the patient has been getting narcotics for abdominal pain which may also contribute to nausea and vomiting. - GI consulted for assistance. Meanwhile will switch patient over to [place] from IV Dilaudid. Discussed with patient the goal to wean off narcotics as this can mask the true symptoms. Patient was previously counseled regarding cessation of marijuana. - Continue PPI and Carafate - Small bowel study is unremarkable. Diarrhea: Patient has been evaluated by infectious disease, agree with assessment that her symptoms is unlikely to be infectious. - Diet per GI. - Stool studies pending -? IBS. Patient reports Imodium helped, will restart Imodium. Defer to GI for further plans. Hypokalemia: Secondary to GI loss. Replace and monitor. DVT prophylaxis: SCDs, patient is ambulatory. Discharge Planning Patient need to be able to tolerate a diet, pain control on oral medications, with improvement in diarrhea prior to discharge. Further input from GI appreciated. Problem Qualifiers (1) Vomiting: Qualified Codes: R11.10 - Vomiting, unspecified (2) Abdominal pain: Qualified Codes: R10.13 - Epigastric pain Marci Darby MD Jun 17, 2017 09:47
[2017-06-17] MEDS ORDERED: HYDROmorphone HCL PF 1 MG/ML VIAL IV PUSH PRN (10:00)
[2017-06-17] MEDS ORDERED: POTASSIUM CHLORIDE 20 MEQ CONTROLLED RELEASE TAB PO ONE (10:00)
[2017-06-17 11:12] LABS: HEMOGLOBIN A1a 0.9 %; HEMOGLOBIN A1b 1.4 %; HEMOGLOBIN Ao 87.5 %; HEMOGLOBIN LA1C 1.7 %; HEMOGLOBIN P3 3.2 %
[2017-06-17] MEDS: ACETAMINOPHEN/HYDROcodone 325 MG/5 MG TAB PO PRN ×4 (11:28→22:37)
[2017-06-17] MEDS: LOPERAMIDE HCL 2 MG CAP PO PRN ×3 (11:38→22:40)
--- NOTE | 2017-06-17 12:42 | PD.CONS ---
HPI History of Present Illness This is a 21 year old female who presented to the ER for persistent, recurrent nausea, vomiting, and abdominal pain. 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 Patient reports her symptoms started in October with right sided abdominal pain. She went to [facility] [place] where she was diagnosed with possible food poisoning. She has continued to have recurrent symptoms, intermittently (2-3 times per month) since returning to the [place]. She was recently admitted at [facility] 06/11/17 with similar symptoms and evaluated by GI with EGD. EGD 06/12/17 showed moderate esophagitis, no gastric outlet obstruction, mild duodenitis. Distal esophagus biopsy showed mildly hyperplastic squamous mucosa with features suggesting reflux esophagitis. Antrum of stomach, biopsy showed minimally active chronic antral gastritis with non-specific features, no H pylori organisms were present. Was discharged home with Phenergan and Protonix. Reports nausea and vomiting has improved with Phenergan. Today, patient reports diffuse abdominal pain. Reports liquid stools. Small bowel X ray 06/16/17 showed normal small bowel follow-through. (Mini Wray) PFSH Past Medical History Esophagitis Duodenitis Past Surgical History EGD 06/12 (Mini Wray) Coded Allergies: No Known Allergies (Unverified , 06/16/17) Medications Current Medications Medications (Trade) Dose Ordered Sig/Raghavendra Route PRN Reason Start Time Stop Time Status Last Admin Dose Admin Potassium Chloride/Dextrose/ Sod Cl 1,000 ml @ 80 mls/hr [id number] IV 06/16/17 19:00 Sodium Chloride (NS Flush) 2 ml UNSCH PRN IV FLUSH FLUSH AFTER USING IV ACCESS 06/16/17 17:45 Sodium Chloride (NS Flush) 2 ml BID IV FLUSH 06/16/17 21:00 Ondansetron HCl (Zofran Inj) 4 mg Q6H PRN IV PUSH NAUSEA 06/16/17 17:45 06/17/17 08:29 Promethazine HCl (Phenergan Supp) 25 mg Q6H PRN RECTAL NAUSEA OR VOMITING 06/16/17 17:45 Sodium Chloride 1,000 ml @ 100 mls/hr Q10H IV 06/16/17 20:00 06/17/17 06:00 Sodium Chloride (NS Flush) 2 ml UNSCH PRN IV FLUSH FLUSH AFTER USING IV ACCESS 06/16/17 18:30 Sodium Chloride (NS Flush) 2 ml BID IV FLUSH 06/16/17 21:00 Acetaminophen (Tylenol) 650 mg Q4H PRN PO TEMP > 100.4 06/16/17 20:00 Ondansetron HCl (Zofran Inj) 4 mg Q6H PRN IVP SEE LABEL COMMENTS 06/16/17 20:00 Metoclopramide HCl (Reglan Inj) 5 mg Q6H PRN IV PUSH SEE LABEL COMMENTS 06/16/17 20:00 06/17/17 11:27 Prochlorperazine (Compazine Supp) 25 mg Q12H PRN RECTAL SEE LABEL COMMENTS 06/16/17 20:00 Zolpidem Tartrate (Ambien) 5 mg HS PRN PO INSOMNIA 06/16/17 20:00 Acetaminophen (Tylenol) 650 mg Q6H PRN PO PAIN SCALE 1 TO 2 06/16/17 20:00 Naloxone HCl (Narcan Inj) 0.4 mg UNSCH PRN IV PUSH SEE LABEL COMMENTS 06/16/17 18:30 Senna/Docusate Sodium (Michelle-Colace) 1 tab BID PO 06/16/17 21:00 Magnesium Hydroxide (Milk Of Magnesia Liq) 30 ml Q12H PRN PO MILD - MODERATE CONSTIPATION 06/16/17 18:30 Sennosides (Senokot) 17.2 mg Q12H PRN PO MODERATE - SEVERE CONSTIPATION 06/16/17 18:30 Bisacodyl (Dulcolax Supp) 10 mg DAILY PRN RECTAL SEVERE CONSITIPATION 06/16/17 18:30 Lactulose (Lactulose Liq) 30 ml DAILY PRN PO SEVERE CONSITIPATION 06/16/17 18:30 Sucralfate (Carafate Liq) 1 gm ACHS PO 06/16/17 21:00 06/17/17 11:27 Pantoprazole Sodium (Protonix Inj) 40 mg Q12H IV PUSH 06/16/17 21:00 06/17/17 08:27 Loperamide HCl (Imodium) 2 mg Q4H PRN PO DIARRHEA 06/17/17 10:00 06/17/17 11:38 Hydromorphone HCl (Dilaudid Pf Inj) 0.5 mg Q4H PRN IV PUSH Pain>5; if unable to take PO 06/17/17 10:00 Acetaminophen/ Hydrocodone Bitart ([place] 5-325 Mg) 1 tab Q4H PRN PO PAIN GREATER THAN 5 06/17/17 10:00 06/17/17 11:28 Family History Noncontributory. Social History ETOH, occasional Tobacco, denies Illicit Drugs, denies (Mini Wray) Review of Systems Constitutional: COMPLAINS OF: Change in appetite, DENIES: Diaphoretic episodes , Fatigue, Fever, Weight gain, Weight loss, Chills, Dizziness, Night Sweats Endocrine: DENIES: Polydipsia, Polyuria Eyes: DENIES: Blurred vision, Photosensitivity, Double Vision Ears, nose, mouth, throat: DENIES: Hearing loss, Vertigo, Oral lesions, Throat pain, Hoarseness Respiratory: DENIES: Cough, Wheezing, Hemoptysis, Sputum production, Shortness of breath Cardiovascular: DENIES: Chest pain, Palpitations, Syncope, Lower Extremity Edema, Orthopnea, Claudication Gastrointestinal: COMPLAINS OF: Abdominal pain, Diarrhea, Nausea, Vomiting, DENIES: Black stools, Bloody stools, Constipation, Difficulty Swallowing, Anorexia, Odynophagia, Swelling of Abdomen, Heartburn, Hematemesis Genitourinary: DENIES: Urinary frequency, Urinary incontinence, Urgency, Hematuria, Dysuria, Nocturia Musculoskeletal: DENIES: Joint pain, Muscle aches, Stiffness, Joint Swelling, Back pain, Neck pain Integumentary: DENIES: Abnormal pigmentation, Nail changes, Pruritus, Rash, Jaundice Hematologic/lymphatic: DENIES: Bruising, Lymphadenopathy Immunologic/allergic: DENIES: Eczema, Urticaria Neurologic: DENIES: Abnormal gait, Headache, Localized weakness, Paresthesias Psychiatric: DENIES: Anxiety, Confusion, Mood changes, Depression, Agitation, Suicidal Ideation (Mini Wray) GI Exam Vitals I&O Vital Signs Date Time Temp Pulse Resp B/P (MAP) Pulse Ox O2 Delivery O2 Flow Rate FiO2 06/17/17 08:00 98.0 62 16 95/51 (66) 99 06/17/17 06:50 19 06/17/17 05:29 70 06/17/17 04:00 20 06/17/17 04:00 96.6 80 16 101/67 (78) 99 06/17/17 00:00 98.2 95 16 120/68 (85) 100 06/16/17 20:00 98.3 94 17 129/84 (99) 100 06/16/17 19:29 99 06/16/17 18:45 98.2 93 18 135/81 (99) 99 06/16/17 17:35 98.2 89 20 131/72 (91) 99 Room Air 06/16/17 13:19 97.9 94 16 126/72 (90) 100 Room Air I/O 06/16/17 06/16/17 06/16/17 06/17/17 06/17/17 06/17/17 07:00 15:00 23:00 07:00 15:00 23:00 Intake Total 2960 ml 480 ml Balance 2960 ml 480 ml Intake Oral 960 ml 480 ml IV Total 2000 ml # Voids 3 3 1 # Bowel Movements 2 2 Imaging Last Impressions Small Bowel X-Ray 06/16/17 0000 Signed Impressions: Service Date/Time: Friday, June 16, 2017 20:29 - CONCLUSION: Normal small bowel follow-through. No obstruction or other acute abnormality. Kevin Stout MD Laboratory Test 06/16/17 13:35 06/16/17 14:45 06/16/17 22:22 06/17/17 07:01 White Blood Count 12.2 TH/MM3 9.7 TH/MM3 Red Blood Count 4.96 MIL/MM3 3.69 MIL/MM3 Hemoglobin 14.7 GM/DL 11.1 GM/DL Hematocrit 43.2 % 33.0 % Mean Corpuscular Volume 87.1 FL 89.5 FL Mean Corpuscular Hemoglobin 29.6 PG 30.1 PG Mean Corpuscular Hemoglobin Concent 34.0 % 33.6 % Red Cell Distribution Width 12.5 % 12.7 % Platelet Count 248 TH/MM3 193 TH/MM3 Mean Platelet Volume 8.1 FL 8.0 FL Neutrophils (%) (Auto) 86.1 % 68.3 % Lymphocytes (%) (Auto) 7.7 % 21.7 % Monocytes (%) (Auto) 5.8 % 8.9 % Eosinophils (%) (Auto) 0.2 % 0.7 % Basophils (%) (Auto) 0.2 % 0.4 % Neutrophils # (Auto) 10.5 TH/MM3 6.6 TH/MM3 Lymphocytes # (Auto) 0.9 TH/MM3 2.1 TH/MM3 Monocytes # (Auto) 0.7 TH/MM3 0.9 TH/MM3 Eosinophils # (Auto) 0.0 TH/MM3 0.1 TH/MM3 Basophils # (Auto) 0.0 TH/MM3 0.0 TH/MM3 CBC Comment DIFF FINAL DIFF FINAL Differential Comment Blood Smear Pathologist Review Blood Urea Nitrogen 7 MG/DL 5 MG/DL Creatinine 0.77 MG/DL 0.65 MG/DL Random Glucose 112 MG/DL 71 MG/DL Total Protein 8.1 GM/DL 6.0 GM/DL Albumin 4.4 GM/DL 3.1 GM/DL Calcium Level 9.4 MG/DL 8.1 MG/DL Alkaline Phosphatase 45 U/L 35 U/L Aspartate Amino Transf (AST/SGOT) 26 U/L 15 U/L Alanine Aminotransferase (ALT/SGPT) 25 U/L 16 U/L Total Bilirubin 0.5 MG/DL 0.5 MG/DL Sodium Level 137 MEQ/L 140 MEQ/L Potassium Level 3.1 MEQ/L 3.3 MEQ/L Chloride Level 105 MEQ/L 108 MEQ/L Carbon Dioxide Level 20.5 MEQ/L 24.6 MEQ/L Anion Gap 12 MEQ/L 7 MEQ/L Estimat Glomerular Filtration Rate 97 ML/MIN 117 ML/MIN Lactic Acid Level 1.8 mmol/L Magnesium Level 1.8 MG/DL 1.9 MG/DL Lipase 224 U/L Thyroid Stimulating Hormone 3rd Gen 0.229 uIU/ML Urine Color YELLOW Urine Turbidity CLEAR Urine pH 8.0 Urine Specific [place] 1.018 Urine Protein TRACE mg/dL Urine Glucose (UA) NEG mg/dL Urine Ketones 80 mg/dL Urine Occult Blood NEG Urine Nitrite NEG Urine Bilirubin NEG Urine Urobilinogen LESS THAN 2.0 MG/DL Urine Leukocyte Esterase TRACE Urine WBC 3 /hpf Urine Squamous Epithelial Cells 3 /hpf Urine Mucus FEW /lpf Microscopic Urinalysis Comment CULT NOT INDICATED Urine Opiates Screen NEG Urine Barbiturates Screen NEG Urine Amphetamines Screen NEG Urine Benzodiazepines Screen NEG Urine Cocaine Screen NEG Urine Cannabinoids Screen NEG Eosinophil Stool Smear NONE SEEN /HPF Phosphorus Level 2.7 MG/DL Hemoglobin A1c 4.9 % Free Thyroxine 1.27 NG/DL Date/Time Source Procedure Growth Status 06/16/17 22:22 Stool Stool Stool Pus (KEVYN) - Final FEW WBC'S Complete Physical Examination HEENT: Normocephalic; atraumatic; no jaundice. NECK: Neck is supple CHEST: CTA CARDIAC: RRR with no murmur gallop or rubs. ABDOMEN: Soft, nondistended, diffuse TTP; bowel sounds are hyperactive. EXTREMITIES: No clubbing, cyanosis, or edema. SKIN: Normal; no rash; no jaundice. JUNIOR NETWORK ADMINISTRATOR: No focal deficits; alert and oriented x 3 (Mini Wray) Assessment and Plan Plan ASSESSMENT: - Abdominal pain, nausea, vomiting, diarrhea. Recurrent episodes since October. 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 Her symptoms have been present since returning to the [facility]. Recently admitted at [facility] 06/11/17 with similar symptoms and evaluated by GI with EGD. EGD 06/12/17 showed moderate esophagitis, no gastric outlet obstruction, mild duodenitis. Distal esophagus biopsy showed mildly hyperplastic squamous mucosa with features suggesting reflux esophagitis. Antrum of stomach, biopsy showed minimally active chronic antral gastritis with non-specific features, no H pylori organisms were present. Patient was discharged with Phenergan and Protonix. Nausea and vomiting improved with Phenergan.Has followup appointment with [facility] on Monday at 8 am. Small bowel X ray 06/16/17 showed normal small bowel follow-through. ID following. Eosinophil stool smear negative. Stool O&P, Cyclospora, Giardia , Cryptosporidium all pending. HH 11./33. WBC 9.7. PLAN: - Continue Carafate - Continue PPI - Anti-emetic - Monitor labs - Await stool studies - Supportive care - Further recommendations to follow based on results of above Patient seen and examined by Dr. Gabriel and myself and this note is written on his behalf. (Mini Wray) Plan Patient was seen and examined, agree with above-noted, we will wait for stool studies, she started having diarrhea, consider colonoscopy if the stool studies negative, also consider gastric emptying study (Jaye Gabriel MD) Mini WrayP Jun 17, 2017 12:42 Jaye Gabriel MD Jun 18, 2017 10:47
[2017-06-17] MEDS: ZOLPIDEM TARTRATE 5 MG TAB PO PRN (20:12)
[2017-06-18] VITALS (7 sets, daily range): BP systolic 108–125; BP diastolic 59–74; PULSE 53–120; RESP 15–17; TEMP 95.5–97; O2SAT 97–100
[2017-06-18] MEDS: ACETAMINOPHEN/HYDROcodone 325 MG/5 MG TAB PO PRN ×3 (05:09→20:50)
[2017-06-18] MEDS: LOPERAMIDE HCL 2 MG CAP PO PRN (05:09)
[2017-06-18] MEDS: ONDANSETRON HCL 4 MG/2 ML VIAL IV PUSH PRN ×2 (05:09→19:24)
[2017-06-18] MEDS: SUCRALFATE 1 GM/10 ML CUP PO SCH ×4 (05:09→21:52)
[2017-06-18] MEDS: D5-1/2 NS + KCL 20 MEQ INJ 1,000 ML IV SCH ×2 (08:21→21:00)
[2017-06-18] MEDS: PANTOPRAZOLE SODIUM 40 MG VIAL IV PUSH SCH ×2 (08:22→20:53)
[2017-06-18] MEDS: METOCLOPRAMIDE HCL 10 MG/2 ML VIAL IV PUSH PRN (08:23)
[2017-06-18] MEDS: SODIUM CHLORIDE 0.9% FLUSH 10 ML FLUSH IV FLUSH SCH ×4 (09:00→21:00)
[2017-06-18] MEDS: DOCUSATE SODIUM 50 MG/SENNA 8.6 MG TAB PO SCH (09:00)
[2017-06-18 09:53] LABS: HEMATOCRIT 34.2 % (35.0-46.0); MEAN CELL VOLUME 89.2 FL (80.0-100.0); MEAN CORPUSCULAR HEMOGLOBIN 30.5 PG (27.0-34.0); MEAN CORPUSCULAR HGB CONC 34.2 % (32.0-36.0); PLATELET COUNT 183 TH/MM3 (150-450); RED BLOOD COUNT 3.84 MIL/MM3 (4.00-5.30); RED CELL DISTRIBUTION WIDTH 12.9 % (11.6-17.2); REVIEW FLAG FINAL; WHITE BLOOD COUNT 4.9 TH/MM3 (4.0-11.0)
--- NOTE | 2017-06-18 10:10 | HHI.PR ---
Subjective Remarks Feels better overall, using less pain medication. Nausea is controlled with antiemetics. Diarrhea slowing down with Imodium. GI planning for colonoscopy per the patient. Objective Vitals Vital Signs Date Time Temp Pulse Resp B/P (MAP) Pulse Ox O2 Delivery O2 Flow Rate FiO2 06/18/17 08:00 96.9 120 15 108/59 (75) 98 06/18/17 04:00 96.4 75 16 114/61 (78) 98 06/18/17 00:00 96.2 65 17 119/74 (89) 99 06/17/17 21:15 64 06/17/17 20:00 96.8 74 16 116/61 (79) 100 06/17/17 20:00 19 06/17/17 16:00 98.2 65 14 102/60 (74) 97 06/17/17 12:00 98.0 80 16 117/68 (84) 99 06/17/17 11:00 98 21 I/O 06/17/17 06/17/17 06/17/17 06/18/17 06/18/17 06/18/17 07:00 15:00 23:00 07:00 15:00 23:00 Intake Total 480 ml 960 ml 3742 ml Balance 480 ml 960 ml 3742 ml Intake Oral 480 ml 960 ml 480 ml IV Total 3262 ml # Voids 3 1 11 3 # Bowel Movements 2 11 Result Diagram: 06/18/17 0851 06/17/17 0701 Objective Remarks GENERAL: This is a well-nourished, well-developed patient, in no apparent distress. CARDIOVASCULAR: Normal rate and regular rhythm without murmurs, gallops, or rubs. RESPIRATORY: Good respiratory efforts. Breath sounds equal and clear to auscultation bilaterally. GASTROINTESTINAL: Abdomen soft, non-distended, mild diffuse tenderness with palpation. Normal active bowel sounds MUSCULOSKELETAL: Extremities without cyanosis, or edema. NEURO: Alert & Oriented x4 to person, place, time, situation. Moves all ext x4 PSYCH: Appropriate mood and affect. A/P Problem List: (1) Duodenitis ICD Code: K29.80 - Duodenitis without bleeding Status: Acute (2) Vomiting ICD Code: R11.10 - Vomiting, unspecified Status: Acute (3) Abdominal pain ICD Code: R10.9 - Unspecified abdominal pain Status: Acute (4) Hypokalemia ICD Code: E87.6 - Hypokalemia Status: Acute (5) Esophagitis ICD Code: K20.9 - Esophagitis, unspecified Status: Acute (6) Nausea ICD Code: R11.0 - Nausea Status: Acute (7) Gastric outlet obstruction ICD Code: K31.1 - Adult hypertrophic pyloric stenosis Assessment and Plan 21-year-old female who presents for recurrent nausea, vomiting, abdominal pain. This is the patient's third hospitalization this past week with the same complaints. Intractable nausea, vomiting, abdominal pain: Vomiting have resolved. Patient records reviewed. She was previously evaluated by GI, EGD 06/12 showed esophagitis and duodenitis with pathology showing chronic reflux. - Continue with antiemetics, IV fluids. Patient also tested positive for marijuana previously which may contribute to nausea and vomiting. Patient was previously counseled regarding cessation of marijuana. In addition, the patient has been getting narcotics for abdominal pain which may also contribute to nausea. Overall improving - GI following and planing for possible colonoscopy. Recommend follow up on stool cultures. - Continue PPI, Carafate, Imodium - Small bowel study is unremarkable. - Follow stool cultures - Advance to regular diet. - Encourage ambulation Diarrhea: Patient has been evaluated by infectious disease, agree with assessment that her symptoms is unlikely to be infectious. - Stool studies pending -? IBS. Patient reports Imodium helped, continue Imodium. Defer to GI for further plans. Hypokalemia: Secondary to GI loss. Replace and monitor. DVT prophylaxis: SCDs, patient is ambulatory. Discharge Planning Patient need to be able to tolerate a diet, pain control on oral medications, with improvement in diarrhea prior to discharge and clearance from GI. GI planning for possible colonoscopy. Problem Qualifiers (1) Vomiting: Qualified Codes: R11.10 - Vomiting, unspecified (2) Abdominal pain: Qualified Codes: R10.13 - Epigastric pain Marci Darby MD Jun 18, 2017 10:10
[2017-06-18 10:19] LABS: BICARBONATE 22.9 MEQ/L (21.0-32.0); POTASSIUM 3.2 MEQ/L (3.5-5.1)
[2017-06-18] MEDS: SODIUM CHLOR 0.9% 1000 ML INJ 1,000 ML IV SCH ×2 (12:31→23:37)
--- NOTE | 2017-06-18 15:18 | HHI.GIFU ---
Subjective Remarks Resting in bed. Nausea without vomiting after eating lunch. Mild abdominal cramping. No diarrhea. (Kamini Viera) Objective Vitals I&O Vital Signs Date Time Temp Pulse Resp B/P (MAP) Pulse Ox O2 Delivery O2 Flow Rate FiO2 06/18/17 13:35 15 06/18/17 12:00 97.0 63 15 108/66 (80) 100 06/18/17 08:00 96.9 120 15 108/59 (75) 98 06/18/17 04:00 96.4 75 16 114/61 (78) 98 06/18/17 00:00 96.2 65 17 119/74 (89) 99 06/17/17 21:15 64 06/17/17 20:00 96.8 74 16 116/61 (79) 100 06/17/17 16:00 98.2 65 14 102/60 (74) 97 I/O 06/17/17 06/17/17 06/17/17 06/18/17 06/18/17 06/18/17 07:00 15:00 23:00 07:00 15:00 23:00 Intake Total 480 ml 960 ml 3742 ml Balance 480 ml 960 ml 3742 ml Intake Oral 480 ml 960 ml 480 ml IV Total 3262 ml # Voids 3 1 11 3 # Bowel Movements 2 11 Laboratory Laboratory Tests Test 06/18/17 08:51 White Blood Count 4.9 Red Blood Count 3.84 Hemoglobin 11.7 Hematocrit 34.2 Mean Corpuscular Volume 89.2 Mean Corpuscular Hemoglobin 30.5 Mean Corpuscular Hemoglobin Concent 34.2 Red Cell Distribution Width 12.9 Platelet Count 183 Mean Platelet Volume 8.3 Blood Urea Nitrogen 4 Creatinine 0.67 Random Glucose 69 Calcium Level 8.4 Sodium Level 139 Potassium Level 3.2 Chloride Level 106 Carbon Dioxide Level 22.9 Anion Gap 10 Estimat Glomerular Filtration Rate 113 Thyroid Stimulating Hormone 3rd Gen 1.890 Date/Time Source Procedure Growth Status 06/16/17 22:22 Stool Stool Stool Pus (KEVYN) - Final FEW WBC'S Complete Imaging Last Impressions Small Bowel X-Ray 06/16/17 0000 Signed Impressions: Service Date/Time: Friday, June 16, 2017 20:29 - CONCLUSION: Normal small bowel follow-through. No obstruction or other acute abnormality. Kevin Stout MD Physical Exam HEENT: Normocephalic; atraumatic; no jaundice. CHEST: CTA. CARDIAC: RRR ABDOMEN: Soft, nondistended, nontender; no hepatosplenomegaly; bowel sounds are present in all four quadrants. EXTREMITIES: No clubbing, cyanosis, or edema. SKIN: Normal; no rash; no jaundice. DIESEL FITTER MECHANIC: No focal deficits; alert and oriented times three. (Kamini Viera) Assessment and Plan Plan ASSESSMENT: - Abdominal pain, nausea, vomiting, diarrhea. Recurrent episodes since October. 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 Her symptoms have been present since returning to the [facility]. Recently admitted at [facility] 06/11/17 with similar symptoms, CT Scan abdomen and pelvis (06/11/17)--> findings suggest gastric outlet obstruction with concentric narrowing of the pyloric region could represent either peristaltic ontraction or mass lesion. EGD (06/12/17)--> showed moderate esophagitis, no gastric outlet obstruction, mild duodenitis. Distal esophagus biopsy showed mildly hyperplastic squamous mucosa with features suggesting reflux esophagitis. Antrum of stomach, biopsy showed minimally active chronic antral gastritis with non-specific features, no H pylori organisms were present. SBFT (06/16/17)---> showed normal small bowel follow-through. ID following. Eosinophil stool smear negative. Stool few wbc's. Cyclospora, cryptosporidium, giardia, pending. Eosinophil stool smear none seen. WBC 4.9. Had some nausea after lunch, no vomiting. No diarrhea today. Mild abdominal cramping. - Anemia. 11.7/34.2. . PLAN: - WILLIAM - Await stool studies - Cont. PPI - Cont. Carafate - Monitor labs - If stool studies negative, consider colonoscopy. - GES in am - Supportive care - Further recommendations to follow based on results of above - Patient seen and examined by Dr. Gabriel and myself and this note is written on his behalf. (Kamini Viera) Plan Patient was seen and examined, agree with above Notes, gastric emptying study tomorrow, await stool studies, consider colonoscopy (Jaye Gabriel MD) Kamini Viera Jun 18, 2017 15:17 Jaye Gabriel MD Jun 18, 2017 18:09
[2017-06-18] MEDS: POTASSIUM CHLOR 20 MEQ PREMIX 100 ML IV SCH ×2 (15:47→17:00)
[2017-06-18] MEDS ORDERED: POTASSIUM CHLORIDE 20 MEQ CONTROLLED RELEASE TAB PO ONE ×2 (18:15→18:30)
[2017-06-18] MEDS: ZOLPIDEM TARTRATE 5 MG TAB PO PRN (23:36)
[2017-06-19] VITALS (9 sets, daily range): BP systolic 96–119; BP diastolic 62–68; PULSE 49–88; RESP 15–17; TEMP 96.6–98; O2SAT 97–100
[2017-06-19 00:27] LABS: C. DIFF EPI 027 PRESUMPTIVE NEGATIVE (NEGATIVE)
[2017-06-19] MEDS: SUCRALFATE 1 GM/10 ML CUP PO SCH ×4 (08:00→22:09)
[2017-06-19] MEDS ORDERED: metroNIDAZOLE 500 MG INJ 100 ML IV SCH (09:00)
[2017-06-19] MEDS: SODIUM CHLORIDE 0.9% FLUSH 10 ML FLUSH IV FLUSH SCH ×2 (09:00→19:58)
--- NOTE | 2017-06-19 10:01 | HHI.PR ---
Subjective Remarks Patient is still having some nausea. Less abdominal pain. No diarrhea today. C diff came back positive. Objective Vitals Vital Signs Date Time Temp Pulse Resp B/P (MAP) Pulse Ox O2 Delivery O2 Flow Rate FiO2 06/19/17 08:45 98.0 60 16 119/68 (85) 100 06/19/17 04:08 50 06/19/17 04:00 97.4 62 16 109/66 (80) 98 06/19/17 00:03 49 06/19/17 00:00 96.8 53 16 110/66 (81) 100 06/18/17 20:04 56 06/18/17 20:00 96.9 53 16 125/66 (85) 99 06/18/17 16:00 95.5 61 15 112/73 (86) 97 06/18/17 13:35 15 06/18/17 12:00 97.0 63 15 108/66 (80) 100 I/O 06/18/17 06/18/17 06/18/17 06/19/17 06/19/17 06/19/17 07:00 15:00 23:00 07:00 15:00 23:00 Intake Total 3982 ml 1485 ml 900 ml Balance 3982 ml 1485 ml 900 ml Intake Oral 720 ml 1380 ml IV Total 3262 ml 105 ml 900 ml # Voids 6 7 # Bowel Movements 1 1 Result Diagram: 06/18/17 0851 06/18/17 0851 Objective Remarks GENERAL: This is a well-nourished, well-developed patient, in no apparent distress. CARDIOVASCULAR: Normal rate and regular rhythm without murmurs, gallops, or rubs. RESPIRATORY: Good respiratory efforts. Breath sounds equal and clear to auscultation bilaterally. GASTROINTESTINAL: Abdomen soft, non-distended, mild diffuse tenderness with palpation. Normal active bowel sounds MUSCULOSKELETAL: Extremities without cyanosis, or edema. NEURO: Alert & Oriented x4 to person, place, time, situation. Moves all ext x4 PSYCH: Appropriate mood and affect. A/P Problem List: (1) Duodenitis ICD Code: K29.80 - Duodenitis without bleeding Status: Acute (2) Vomiting ICD Code: R11.10 - Vomiting, unspecified Status: Acute (3) Abdominal pain ICD Code: R10.9 - Unspecified abdominal pain Status: Acute (4) Hypokalemia ICD Code: E87.6 - Hypokalemia Status: Acute (5) Esophagitis ICD Code: K20.9 - Esophagitis, unspecified Status: Acute (6) Nausea ICD Code: R11.0 - Nausea Status: Acute (7) Gastric outlet obstruction ICD Code: K31.1 - Adult hypertrophic pyloric stenosis Assessment and Plan 21-year-old female who presents for recurrent nausea, vomiting, abdominal pain. This is the patient's third hospitalization this past week with the same complaints. Intractable nausea, vomiting, abdominal pain: Vomiting have resolved. Patient records reviewed. She was previously evaluated by GI, EGD 06/12 showed esophagitis and duodenitis with pathology showing chronic reflux. C difficile colitis: Patient repots she was given IV Cipro about a week ago. Prior to that she was treated for a UTI a month ago. - Start treatment for C difficile with IV Flagyl as she is still nauseous and have not been able to tolerate PO. Diarrhea is improving. - GI following. Gastric emptying study is planned for today - Continue PPI, Carafate - Small bowel study is unremarkable. - Follow stool cultures - Regular diet as tolerated - Encourage ambulation Hypokalemia: Secondary to GI loss. Replaced. Lab pending this AM DVT prophylaxis: SCDs, patient is ambulatory. Discharge Planning Probable discharge tomorrow if she can tolerate PO and no further workup per GI. Problem Qualifiers (1) Vomiting: Qualified Codes: R11.10 - Vomiting, unspecified (2) Abdominal pain: Qualified Codes: R10.13 - Epigastric pain Marci Darby MD Jun 19, 2017 10:01
[2017-06-19 10:26] LABS: BICARBONATE 28.7 MEQ/L (21.0-32.0); POTASSIUM 3.9 MEQ/L (3.5-5.1)
[2017-06-19] MEDS: METOCLOPRAMIDE HCL 10 MG/2 ML VIAL IV PUSH PRN ×2 (13:00→19:57)
--- NOTE | 2017-06-19 13:18 | RADRPT ---
EXAM DATE/TIME: 06/19/2017 10:40 [place] COMPARISON: No previous studies available for comparison. INDICATIONS : Nausea and vomiting. Recent travel to [facility] in September. DOSE: 1.1 mCi Tc99m Sulfur Colloid Labeled Whole egg PO MEDICATONS: 1.) 5 mg Reglan IV at 90 minutes IMAGIN hrs MEDICAL HISTORY : + C-Diff. SURGICAL HISTORY : None. ENCOUNTER: Subsequent ACUITY: 4 - 6 days PAIN SCALE: 2/10 LOCATION: lower quadrant TECHNIQUE: Following the oral ingestion of radiotracer-labeled meal, dynamic sequential images in the NALDO projec tion were acquired with simultaneous computer acquisition. The data set was decay-corrected. FINDINGS: LAG PHASE: There is 13 minutes before onset of gastric emptying. EMPTYING: Gastric emptying kinetics are linear. The decay-corrected, back-extrapolated half-time of emptying i s >90 minutes. (Normal for this lab is 45- 90 minutes.) INTERVENTION: Reglan was administered at 90 minutes achieving half-time gastric emptying at 30 minutes. CONCLUSION: 1. Delayed gastric emptying consistent with gastroparesis. 2. Good response to Reglan with half-time gastric emptying of 30 minutes. Reginaldo Andres MD on June 19, 2017 at 13:13 Board Certified Radiologist. This report was verified electronically.
[2017-06-19] MEDS: metroNIDAZOLE 500 MG INJ 100 ML IV SCH ×2 (14:21→21:26)
[2017-06-19] MEDS: PANTOPRAZOLE SODIUM 40 MG VIAL IV PUSH SCH ×2 (14:21→21:18)
[2017-06-19] MEDS: ONDANSETRON HCL 4 MG/2 ML VIAL IVP PRN (18:14)
--- NOTE | 2017-06-19 19:09 | HHI.GIFU ---
GI Follow-up Note Consult Follow-up Subjective: Patient laying in bed comfortably, feeling better.diarrhea better , able to tolerate food so far .Stool studies suggest Norovirus and c diff toxin.Gastric emptying done-mild gastroparesis . EGD , sbft, ct noted . Objective: PHYSICAL EXAMINATION: Vitals signs stable No fever HEENT: Pupils round and reactive to light; normocephalic; atraumatic; no jaundice. Throat is clear. NECK: Neck is supple, no JVD, no lymphadenopathy. CHEST: Chest is clear to auscultation and percussion. CARDIAC: Regular rate and rhythm with no murmur gallop or rubs. ABDOMEN: Soft, nondistended, nontender; no hepatosplenomegaly; bowel sounds are present in all four quadrants. EXTREMITIES: No clubbing, cyanosis, or edema. SKIN: Normal; no rash; no jaundice. SPECIMEN BOSS: No focal deficits; alert and oriented times three. Available Data (labs, X- Rays, Procedues) : Laboratory Tests Test 06/18/17 08:51 06/18/17 20:30 06/19/17 09:30 White Blood Count 4.9 TH/MM3 Red Blood Count 3.84 MIL/MM3 Hemoglobin 11.7 GM/DL Hematocrit 34.2 % Mean Corpuscular Volume 89.2 FL Mean Corpuscular Hemoglobin 30.5 PG Mean Corpuscular Hemoglobin Concent 34.2 % Red Cell Distribution Width 12.9 % Platelet Count 183 TH/MM3 Mean Platelet Volume 8.3 FL Blood Urea Nitrogen 4 MG/DL 4 MG/DL Creatinine 0.67 MG/DL 0.63 MG/DL Random Glucose 69 MG/DL 79 MG/DL Calcium Level 8.4 MG/DL 8.6 MG/DL Sodium Level 139 MEQ/L 140 MEQ/L Potassium Level 3.2 MEQ/L 3.9 MEQ/L Chloride Level 106 MEQ/L 106 MEQ/L Carbon Dioxide Level 22.9 MEQ/L 28.7 MEQ/L Anion Gap 10 MEQ/L 5 MEQ/L Estimat Glomerular Filtration Rate 113 ML/MIN 122 ML/MIN Thyroid Stimulating Hormone 3rd Gen 1.890 uIU/ML Stool C. difficile Toxin (PCR) POSITIVE Stl C. difficile Toxin Epiderm 027 PRESUMPTIVE NEGATIVE Vital Signs Date Time Temp Pulse Resp B/P (MAP) Pulse Ox O2 Delivery O2 Flow Rate FiO2 06/19/17 16:00 97.7 64 15 116/63 (80) 97 06/19/17 14:00 97.1 88 15 112/62 (79) 99 ASSESSMENT/PLAN: recurrent n,v -gastric emptying study suggesting gastroparesis-most likely postinfectious diarrhea -norovirus/c diff positive -clinically better toxicology positive for cannabis-possible contributing factor to some of her symptoms Recommendations reconsult id colonoscopy before discharge sed rate celiac panel viral food allergy panel consider hida scan if not better dietary changes for gastroparesis switch flagyl to po once able to tolerate po It was a pleasure seeing Matilda Grey. Thank you for this consult. Entered by: Poornima Rashid MD Jun 19, 2017 19:09
[2017-06-19] MEDS: SODIUM CHLOR 0.9% 1000 ML INJ 1,000 ML IV SCH (19:14)
[2017-06-19] MEDS: ACETAMINOPHEN/HYDROcodone 325 MG/5 MG TAB PO PRN (20:01)
[2017-06-19] MEDS: ZOLPIDEM TARTRATE 5 MG TAB PO PRN (21:18)
[2017-06-19] MEDS: LACTOBACILLUS ACIDOPHILUS TAB PO SCH (21:18)
[2017-06-20] VITALS (8 sets, daily range): BP systolic 101–119; BP diastolic 60–73; PULSE 50–77; RESP 12–17; TEMP 96.9–98.2; O2SAT 97–100
[2017-06-20] MEDS: SODIUM CHLOR 0.9% 1000 ML INJ 1,000 ML IV SCH ×2 (05:36→16:22)
[2017-06-20] MEDS: metroNIDAZOLE 500 MG INJ 100 ML IV SCH (05:36)
[2017-06-20] MEDS: SODIUM CHLORIDE 0.9% FLUSH 10 ML FLUSH IV FLUSH SCH ×2 (09:00→21:35)
[2017-06-20] MEDS: ONDANSETRON HCL 4 MG/2 ML VIAL IVP PRN (09:02)
[2017-06-20] MEDS: LACTOBACILLUS ACIDOPHILUS TAB PO SCH ×2 (09:02→21:34)
[2017-06-20] MEDS: SUCRALFATE 1 GM/10 ML CUP PO SCH ×4 (09:02→21:34)
[2017-06-20] MEDS: PANTOPRAZOLE SODIUM 40 MG VIAL IV PUSH SCH ×2 (09:02→21:35)
--- NOTE | 2017-06-20 09:44 | HHI.PR ---
Subjective Remarks Patient reports she is feeling much better. Eating a popsicle. Inquired about going home. Abdominal pain significantly improved. No nausea. No BM. Objective Vitals Vital Signs Date Time Temp Pulse Resp B/P (MAP) Pulse Ox O2 Delivery O2 Flow Rate FiO2 06/20/17 04:15 50 06/20/17 04:00 96.9 77 17 115/62 (79) 98 06/20/17 00:02 58 06/20/17 00:00 96.9 76 17 101/60 (74) 97 06/19/17 20:03 72 06/19/17 20:00 96.6 62 17 96/63 (74) 98 06/19/17 16:00 97.7 64 15 116/63 (80) 97 06/19/17 14:00 97.1 88 15 112/62 (79) 99 I/O 06/19/17 06/19/17 06/19/17 06/20/17 06/20/17 06/20/17 07:00 15:00 23:00 07:00 15:00 23:00 Intake Total 900 ml 0 ml 1205 ml 1000 ml Balance 900 ml 0 ml 1205 ml 1000 ml Intake Oral 0 ml 0 ml IV Total 900 ml 1205 ml 1000 ml # Voids 2 Result Diagram: 06/18/17 0851 06/19/17 0930 Objective Remarks GENERAL: This is a well-nourished, well-developed patient, in no apparent distress. CARDIOVASCULAR: Normal rate and regular rhythm without murmurs, gallops, or rubs. RESPIRATORY: Good respiratory efforts. Breath sounds equal and clear to auscultation bilaterally. GASTROINTESTINAL: Abdomen soft, non-distended, non tender. Normal active bowel sounds MUSCULOSKELETAL: Extremities without cyanosis, or edema. NEURO: Alert & Oriented x4 to person, place, time, situation. Moves all ext x4 PSYCH: Appropriate mood and affect. A/P Problem List: (1) Duodenitis ICD Code: K29.80 - Duodenitis without bleeding Status: Acute (2) Vomiting ICD Code: R11.10 - Vomiting, unspecified Status: Acute (3) Abdominal pain ICD Code: R10.9 - Unspecified abdominal pain Status: Acute (4) Hypokalemia ICD Code: E87.6 - Hypokalemia Status: Acute (5) Esophagitis ICD Code: K20.9 - Esophagitis, unspecified Status: Acute (6) Nausea ICD Code: R11.0 - Nausea Status: Acute (7) Gastric outlet obstruction ICD Code: K31.1 - Adult hypertrophic pyloric stenosis Assessment and Plan 21-year-old female who presents for recurrent nausea, vomiting, abdominal pain. This is the patient's third hospitalization this past week with the same complaints. Intractable nausea, vomiting, abdominal pain: Vomiting and diarrhea resolved. Patient records reviewed. She was previously evaluated by GI, EGD 06/12 showed esophagitis and duodenitis with pathology showing chronic reflux. Positive for Noro virus. C difficile colitis: Patient repots she was given IV Cipro about a week ago. Prior to that she was treated for a UTI a month ago. - Much improved, diarrhea resolved. Transition to oral Flagyl - GI following. Gastric emptying study showed Gastroparesis, likely postinfectious per GI. N/V resolved and she is tolerating a diet. - Continue PPI, Carafate - Small bowel study is unremarkable. - Stool cultures final - Regular diet - Encourage ambulation - GI considering, celiac panel sent. Colonoscopy being considered. Will discuss with them regarding timing. - Patient has made significant improvement, possible discharge after she is seen by ID and if ok with GI. Will discuss with GI. DVT prophylaxis: SCDs, patient is ambulatory. Discharge Planning Probable discharge today pending further discussion with ID and GI. Problem Qualifiers (1) Vomiting: Qualified Codes: R11.10 - Vomiting, unspecified (2) Abdominal pain: Qualified Codes: R10.13 - Epigastric pain Marci Darby MD Jun 20, 2017 09:44
[2017-06-20] MEDS ORDERED: HYDR-3516 PO (10:47)
[2017-06-20] MEDS: metroNIDAZOLE 500 MG TAB PO SCH ×2 (13:04→21:34)
--- NOTE | 2017-06-20 14:52 | HHI.IDPN ---
Subjective Subjective Remarks is a 21 /o CF with travel to [facility] in Sep 2015 for 2.5 weeks for farm tours ([employer] [place] [employer] [place]). Patient is a pre-schoolschool bus attendant by profession. She presented to ED 06/11/17 with Nausea, vomiting and reported h/o diarrhea 2-3 BMs semiformed to liquid. She reports these symptoms have been present off and on since October since she returned to [place]. She went to [facility] and was treated for possible food poisoning. She reports these symptoms occur 2-3 times per month. She was recently admitted and underwent EGD. Path from EGD with no H.pylori. 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 In addition, path also showed minimally active chronic antral gastritis but H.pylori. She was prescribed protonix and reports being compliant. She returns to the ED with persistent nausea and vomiting. ID has been consulted for evaluation and Mment of Infectious gastroenteritis. The CT A/P shows hyperplasia of pyloric lesion ? peristalsis vs mass. Gi has been consulted. No reported h/o chronic cough to suggest migrating ascaris. No h/o passing worms. No h/o fever, chills, or night sweats. Overnight events reviewed No fever No rash Diarrhea volume and frequency reduced. Antibiotics Flagyl IV Lines Line sites with no e.o infection Past Medical History reviewed Allergies: Coded Allergies: No Known Allergies (Unverified , 06/16/17) Objective . Vital Signs Date Time Temp Pulse Resp B/P (MAP) Pulse Ox O2 Delivery O2 Flow Rate FiO2 06/20/17 12:00 98.0 60 12 110/63 (79) 100 06/20/17 08:00 98.2 60 14 119/64 (82) 98 06/20/17 04:15 50 06/20/17 04:00 96.9 77 17 115/62 (79) 98 06/20/17 00:02 58 06/20/17 00:00 96.9 76 17 101/60 (74) 97 06/19/17 20:03 72 06/19/17 20:00 96.6 62 17 96/63 (74) 98 06/19/17 16:00 97.7 64 15 116/63 (80) 97 . Laboratory Tests Test 06/19/17 09:30 06/20/17 10:15 Blood Urea Nitrogen 4 MG/DL Creatinine 0.63 MG/DL Random Glucose 79 MG/DL Calcium Level 8.6 MG/DL Sodium Level 140 MEQ/L Potassium Level 3.9 MEQ/L Chloride Level 106 MEQ/L Carbon Dioxide Level 28.7 MEQ/L Anion Gap 5 MEQ/L Estimat Glomerular Filtration Rate 122 ML/MIN Vitamin B12 Level 506 PG/ML Microbiology Date/Time Source Procedure Growth Status 06/18/17 20:30 Stool Stool - Final Norovirus Complete Imaging Last Impressions Gastric Emptying Nuclear Medicine 06/19/17 0600 Signed Impressions: Service Date/Time: Monday, June 19, 2017 10:40 - CONCLUSION: 1. Delayed gastric emptying consistent with gastroparesis. 2. Good response to Reglan with half-time gastric emptying of 30 minutes. Reginaldo Andres MD Small Bowel X-Ray 06/16/17 0000 Signed Impressions: Service Date/Time: Friday, June 16, 2017 20:29 - CONCLUSION: Normal small bowel follow-through. No obstruction or other acute abnormality. Kevin Stout MD Physical Exam GENERAL: This is a well-nourished, well-developed patient, in no apparent distress. SKIN: No rashes, ecchymoses or lesions. Cool and dry. HEAD: Atraumatic. Normocephalic. No temporal or scalp tenderness. EYES: Pupils equal round and reactive. Extraocular motions intact. No scleral icterus. No injection or drainage. ENT: Nose without bleeding, purulent drainage or septal hematoma. Throat without erythema, tonsillar hypertrophy or exudate. Uvula midline. Airway patent. NECK: Trachea midline. No JVD or lymphadenopathy. Supple, nontender, no meningeal signs. CARDIOVASCULAR: Regular rate and rhythm without murmurs, gallops, or rubs. RESPIRATORY: Clear to auscultation. Breath sounds equal bilaterally. No wheezes , rales, or rhonchi. GASTROINTESTINAL: Abdomen soft, non-tender, nondistended. No hepato-splenomegaly , or palpable masses. No guarding. MUSCULOSKELETAL: Extremities without clubbing, cyanosis, or edema. No joint tenderness, effusion, or edema noted. No calf tenderness. Negative Homans sign bilaterally. NEUROLOGICAL: Awake and alert. Cranial nerves II through XII intact. Motor and sensory grossly within normal limits. Five out of 5 muscle strength in all muscle groups. Normal speech. Psych cooperative IV line sites with no e.o infection. Assessment & Plan Remarks Cdiff positive diarrhea, colitis. 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 if tolerates overnight can be her discharge regimen. Recommend a 2 week course. Recommend deescalating from PPI to H2 blockers denice. PPI increase risk of Cdiff. It is certainly possible she started off as Rotavirus recd antibiotics and PPI and developed Cdiff. Follow clinically. Counseled about Rotavirus, Cdiff (precautions, avoid PPI, antibiotics, hand hygiene with soap not sanitizers). Probiotics. If she does not tolerate flagyl please call me back. Shelbi See MD Jun 20, 2017 14:52
--- NOTE | 2017-06-20 16:53 | HHI.GIFU ---
Subjective Remarks Resting in bed. Feeling much better. No n/v. States she has not been having diarrhea. No BM today. tolerating diet. (Kamini Viera) Objective Vitals I&O Vital Signs Date Time Temp Pulse Resp B/P (MAP) Pulse Ox O2 Delivery O2 Flow Rate FiO2 06/20/17 12:00 98.0 60 12 110/63 (79) 100 06/20/17 08:00 98.2 60 14 119/64 (82) 98 06/20/17 04:15 50 06/20/17 04:00 96.9 77 17 115/62 (79) 98 06/20/17 00:02 58 06/20/17 00:00 96.9 76 17 101/60 (74) 97 06/19/17 20:03 72 06/19/17 20:00 96.6 62 17 96/63 (74) 98 I/O 06/19/17 06/19/17 06/19/17 06/20/17 06/20/17 06/20/17 06:59 14:59 22:59 06:59 14:59 22:59 Intake Total 900 ml 0 ml 1205 ml 1000 ml Balance 900 ml 0 ml 1205 ml 1000 ml Intake Oral 0 ml 0 ml IV Total 900 ml 1205 ml 1000 ml # Voids 2 Laboratory Laboratory Tests Test 06/20/17 10:15 06/20/17 11:15 Vitamin B12 Level 506 Date/Time Source Procedure Growth Status 06/18/17 20:30 Stool Stool - Final Norovirus Complete Imaging Last Impressions Gastric Emptying Nuclear Medicine 06/19/17 0600 Signed Impressions: Service Date/Time: Monday, June 19, 2017 10:40 - CONCLUSION: 1. Delayed gastric emptying consistent with gastroparesis. 2. Good response to Reglan with half-time gastric emptying of 30 minutes. Reginaldo Andres MD Small Bowel X-Ray 06/16/17 0000 Signed Impressions: Service Date/Time: Friday, June 16, 2017 20:29 - CONCLUSION: Normal small bowel follow-through. No obstruction or other acute abnormality. Kevin Stout MD Physical Exam HEENT: Normocephalic; atraumatic; no jaundice. CHEST: CTA. CARDIAC: RRR ABDOMEN: Soft, nondistended, nontender; no hepatosplenomegaly; bowel sounds are present in all four quadrants. EXTREMITIES: No clubbing, cyanosis, or edema. SKIN: Normal; no rash; no jaundice. THERMITE WELDER: No focal deficits; alert and oriented times three. (Kamini Viera) Assessment and Plan Plan SSESSMENT: - Abdominal pain, nausea, vomiting, diarrhea. Recurrent episodes since October. Recent travel to [facility] in September for farm tours. Her symptoms have been present since returning to the [facility]. Recently admitted at [place] 06/11/17 with similar symptoms, CT Scan abdomen and pelvis (06/11/17)--> findings suggest gastric outlet obstruction with concentric narrowing of the pyloric region could represent either peristaltic ontraction or mass lesion. EGD (06/12/17)--> showed moderate esophagitis, no gastric outlet obstruction, mild duodenitis. Distal esophagus biopsy showed mildly hyperplastic squamous mucosa with features suggesting reflux esophagitis. Antrum of stomach, biopsy showed minimally active chronic antral gastritis with non-specific features, no H pylori organisms were present. SBFT (06/16/17)---> showed normal small bowel follow-through. ID following. Eosinophil stool smear negative. Stool few wbc's. (+) Norovirus, (+) CDiff, 027 neg. No Cyclospora, cryptosporidium, giardia, pending. Eosinophil stool smear none seen. GES (06/19/17)--> Delayed gastric emptying consistent with gastroparesis, good response to reglan with half-time gastric emptying of 30 minutes. Flagyl, Probiotics. PPI, Carafate. Clinically much improved. Tolerating diet. No diarrhea. No n/v. Denies abdominal pain. Will hold on egd/colonsocopy for now. Will treat CDiff and consider egd/colonoscopy as outpatient if symptoms persist after tx. D/W patient. She is agreeable with plan. - CDiff, 027 neg, Norovirus. Flagyl. No further diarrhea. Feeling much better. Of note, works in daycare - Anemia. HH stable. - Abn. GES, could be post infectious and not true gastroparesis. Would just recommend soft diet, small frequent meals for now. Consider meds if symptoms persist. Clinically she is much better. PLAN: - Okay to d/c home today - Cont. Flagyl - Cont. Probiotics - Cont. PPI - Cont. Carafate - WILLIAM- soft diet, small frequent meals - FU EVELINE 2 weeks - Consider EGD/Colonoscopy as outpatient if symptoms persist after Cdiff tx - Patient seen and examined by Dr. Ricks and myself and this note is written on her behalf. (Kamini Viera) Physician Comments seen, examined agree with above fu blood work colonoscopy op once infection resolved (Poornima Ricks MD) Kamini Viera Jun 20, 2017 16:53 Poornima Ricks MD Jun 20, 2017 19:14
[2017-06-20] MEDS: ZOLPIDEM TARTRATE 5 MG TAB PO PRN (21:44)
[2017-06-21] VITALS: BP 102/55; PULSE 93; RESP 16; TEMP 97.6; O2SAT 97
[2017-06-21] MEDS: SODIUM CHLOR 0.9% 1000 ML INJ 1,000 ML IV SCH
[2017-06-21 04:00] VITALS: BP 100/72; PULSE 66; RESP 16; TEMP 97.5; O2SAT 96
[2017-06-21] MEDS: metroNIDAZOLE 500 MG TAB PO SCH (05:24)
[2017-06-21 08:00] VITALS: BP 131/71; PULSE 98; RESP 14; TEMP 96.3; O2SAT 96
--- NOTE | 2017-06-21 08:58 | HHI.DCPOC ---
Discharge Care Plan Diagnosis: (1) C. difficile colitis (2) Norovirus (3) Abdominal pain (4) Vomiting (5) Esophagitis (6) Duodenitis (7) Nausea Goals to Promote Your Health * To prevent worsening of your condition and complications * To maintain your health at the optimal level Directions to Meet Your Goals Take your medications as prescribed Follow your dietary instruction Follow activity as directed Keep your appointments as scheduled Take your immunizations and boosters as scheduled If your symptoms worsen call your PCP, if no PCP go to Urgent Care Center or Emergency Room Smoking is Dangerous to Your Health. Avoid second hand smoke Call the 24-hour hour crisis hotline for domestic abuse at Marci Darby MD Jun 21, 2017 08:58
[2017-06-21] MEDS ORDERED: SUCR1S PO (09:00)
[2017-06-21] MEDS ORDERED: ZOFR4TAB PO (09:00)
[2017-06-21] MEDS ORDERED: PROT40TA PO (09:00)
[2017-06-21] MEDS ORDERED: METR-1 PO (09:00)
--- NOTE | 2017-06-21 09:00 | HHI.DS ---
Discharge Summary Admission Date Jun 16, 2017 at 16:13 Discharge Date: Jun 21, 2017 Admitting Diagnosis Intractable Vomiting; Abd Pain (1) Duodenitis ICD Code: K29.80 - Duodenitis without bleeding Diagnosis: Principal Status: Acute (2) Vomiting ICD Code: R11.10 - Vomiting, unspecified Diagnosis: Principal Status: Acute (3) Abdominal pain ICD Code: R10.9 - Unspecified abdominal pain Diagnosis: Principal Status: Acute (4) Hypokalemia ICD Code: E87.6 - Hypokalemia Diagnosis: Secondary Status: Acute (5) Esophagitis ICD Code: K20.9 - Esophagitis, unspecified Diagnosis: Principal Status: Acute (6) Nausea ICD Code: R11.0 - Nausea Diagnosis: Principal Status: Acute (7) Gastric outlet obstruction ICD Code: K31.1 - Adult hypertrophic pyloric stenosis Diagnosis: Principal Procedures None during this hospitalization Brief History - From Admission History of present illness from the admitting physician 21-year-old female who presents for recurrent nausea, vomiting, abdominal pain. The patient states that in October she was having symptoms of right-sided abdominal pain, nausea, and vomiting. She went to [facility] and was diagnosed with food poisoning. Since that time she's been having recurrent episodes of these symptoms once or twice a month. She was admitted here earlier this week and was evaluated by GI and had an EGD. She states the Phenergan has been helping the vomiting. She was able to tolerate broth earlier this week, but vomiting recurred today and abdominal pain became significantly worse than it had been. She locates the pain on the right side previously, but now the pain is all over her abdomen. She has been having decreased bowel movements, and whenever she does it is a small amount of stool and loose. She denies any vaginal discharge and her period was last week and irregular. She denies any dysuria. She denies any marijuana use. She did travel to [facility] in September. She had an EGD earlier this week which showed esophagitis and duodenitis and her symptoms were thought to be secondary to gastroenteritis. She has been taking Protonix. CBC/BMP: 06/18/17 0851 06/19/17 0930 Significant Findings Laboratory Tests Test 06/18/17 20:30 06/19/17 09:30 06/20/17 10:15 06/20/17 11:15 Stool C. difficile Toxin (PCR) POSITIVE (NEGATIVE) Blood Urea Nitrogen 4 MG/DL (7-18) Imaging Last Impressions Gastric Emptying Nuclear Medicine 06/19/17 0600 Signed Impressions: Service Date/Time: Monday, June 19, 2017 10:40 - CONCLUSION: 1. Delayed gastric emptying consistent with gastroparesis. 2. Good response to Reglan with half-time gastric emptying of 30 minutes. Reginaldo Andres MD Small Bowel X-Ray 06/16/17 0000 Signed Impressions: Service Date/Time: Friday, June 16, 2017 20:29 - CONCLUSION: Normal small bowel follow-through. No obstruction or other acute abnormality. Kevin Stout MD PE at Discharge GENERAL: This is a well-nourished, well-developed patient, in no apparent distress. CARDIOVASCULAR: Normal rate and regular rhythm without murmurs, gallops, or rubs. RESPIRATORY: Good respiratory efforts. Breath sounds equal and clear to auscultation bilaterally. GASTROINTESTINAL: Abdomen soft, non-distended, non tender. Normal active bowel sounds MUSCULOSKELETAL: Extremities without cyanosis, or edema. NEURO: Alert & Oriented x4 to person, place, time, situation. Moves all ext x4 PSYCH: Appropriate mood and affect. Pt update on day of discharge Patient reports she is feeling much better. Tolerating a regular diet. No apparent side effects with Flagyl. We discussed discharge planning at length including appropriate follow-up with PCP and GI. She was given information for Dr. Kramer to establish for primary care. She will follow-up with Dr. Ricks for GI. Hospital Course 21-year-old female who presents for recurrent nausea, vomiting, abdominal pain. This is the patient's third hospitalization this past week with the same issues. Patient underwent extensive workup. She previously had an EGD on 06/12 which showed esophagitis and duodenitis with pathology showing chronic reflux. The patient had persistent diarrhea was found to have C. difficile colitis. Stool culture also came back positive for noro virus. Patient was followed by infectious disease. In retrospect, it is entirely possible that she had a viral gastroenteritis, however with exposure to antibiotics and PPI ended up with C. difficile colitis. She had a gastric emptying study which showed gastroparesis, this is likely postinfectious per GI. The patient's symptoms resolved. She is discharged home on PPI, Carafate, and metronidazole to complete treatment for esophagitis, duodenitis and C. difficile colitis. Patient to follow-up with GI for results of any of the pending test and establish with PCP. She was given information to call for appointment. Pt Condition on Discharge: Good Discharge Disposition: Discharge Home Discharge Time: > 30 minutes Discharge Instructions DIET: Follow Instructions for: As Tolerated, No Restrictions Activities you can perform: Regular-No Restrictions Follow up Referrals: Gastroenterology - 2 Weeks @ [facility] PCP Follow-up - 1 Week with Marie Smith MD New Medications: Ondansetron (Zofran) 4 Mg Tab 4 MG PO Q8HR PRN for NAUSEA OR VOMITING, #20 TAB 0 Refills Hydrocodone-Acetaminophen (Hydrocodone-Acetaminophen) 5-325 mg Tab 1 TAB PO Q4H PRN for Severe pain, #15 TAB Metronidazole (Flagyl) 500 Mg Tab 500 MG PO Q8HR for 14 Days, TAB Sucralfate Liq (Sucralfate Liq) 1 Gram/10 Ml Mary 1 GM PO ACHS for 30 Days Continued Medications: Pantoprazole (Protonix) 40 Mg Tab 40 MG PO DAILY for Reflux, #30 TAB 0 Refills (This prescription has been renewed ) Discontinued Medications: Promethazine (Phenergan) 25 Mg Tablet 25 MG PO Q8HR PRN for NAUSEA OR VOMITING, #12 TAB 0 Refills Marci Darby MD Jun 21, 2017 09:00
[2017-06-21] MEDS: LACTOBACILLUS ACIDOPHILUS TAB PO SCH (10:00)
[2017-06-21] MEDS: SODIUM CHLORIDE 0.9% FLUSH 10 ML FLUSH IV FLUSH SCH (10:00)
[2017-06-21] MEDS: SUCRALFATE 1 GM/10 ML CUP PO SCH (10:00)
[2017-06-21] MEDS: PANTOPRAZOLE SODIUM 40 MG VIAL IV PUSH SCH (10:00)
[2017-06-21 16:31] LABS: FECAL FAT % FAT 9 % fat (< 20)
[2017-06-22 03:49] LABS: IGA SERUM 158 mg/dL (81-463)
[2017-06-22 13:52] LABS: ENDOMYSIAL AB TITER ND (<1:5); TISSUE TRANSGLUTAMINASE AB LESS THAN 1 U/mL (0-4)
[2017-06-22 17:53] LABS: ALMOND LESS THAN 0.10 kU/L; ALMOND CLASS 0; CASHEW CLASS 0; CODFISH CLASS 0; COWS MILK CLASS 0; COWS MILK IGE LESS THAN 0.10 kU/L; EGG WHITE LESS THAN 0.10 kU/L; EGG WHITE CLASS 0; HAZELNUT LESS THAN 0.10 kU/L; HAZELNUT CLASS 0; PEANUT LESS THAN 0.10 kU/L; PEANUT CLASS 0; SALMON LESS THAN 0.10 kU/L; SALMON CLASS 0; SCALLOP LESS THAN 0.10 kU/L; SCALLOP CLASS 0; SESAME SEED LESS THAN 0.10 kU/L; SESAME SEED CLASS 0; SHRIMP LESS THAN 0.10 kU/L; SHRIMP CLASS 0; SOYBEAN LESS THAN 0.10 kU/L; SOYBEAN CLASS 0; TUNA LESS THAN 0.10 kU/L; TUNA CLASS 0; WALNUT LESS THAN 0.10 kU/L; WALNUT CLASS 0; WHEAT LESS THAN 0.10 kU/L; WHEAT CLASS 0
== END 2017-06-21 11:54 | disposition home or self-care (01) | DRG 372 ==
LOC: NEPD 11:28 → NEDA 16:13 → HOCA 18:37
PROVIDERS: ADMIT Family Medicine; ATTEND Family Medicine
DX: A04.72 Enterocolitis due to Clostridium difficile, not specified as recurrent (principal); K31.1 Adult hypertrophic pyloric stenosis; E87.6 Hypokalemia; K21.0 Gastro-esophageal reflux disease with esophagitis; D64.9 Anemia, unspecified; K29.80 Duodenitis without bleeding; K29.70 Gastritis, unspecified, without bleeding; A08.11 Acute gastroenteropathy due to Norwalk agent
CPT/HCPCS: 74250; 76937; 78264; 80048; 80053; 80307; 81001; 82607; 82710; 82784; 83036; 83516; 83605; 83690; 83735; 84100; 84439; 84443; 85025; 85027; 85060; 86003; 86038; 87205; 87207; 87328; 87329; 87493; 87506; 96361; 96374; 96375; A9541; C9113; J0780; J1170; J1200; J2405; J2765; J3480; J7030; Q9963

== ENCOUNTER 2017-12-16 00:44 | Observation (INO) | payer OTHER ==
[~2017-12-16] VITALS: Ht 152.4 cm; Wt 45.5 kg
[~2017-12-16 00:44] MED LIST changes: +BIRTH CONTROL PILLS; +PANT20 PO; -PROT40TA PO; +ZOFR4TAB PO
[2017-12-16] MEDS ORDERED: SODIUM CHLOR 0.9% 1000 ML INJ 1,000 ML IV SCH (06:04)
[2017-12-16] MEDS ORDERED: ACETAMINOPHEN 325 MG TAB PO PRN (06:15)
[2017-12-16] MEDS ORDERED: SENNOSIDES 8.6 MG TAB PO PRN (06:15)
[2017-12-16] MEDS ORDERED: BISACODYL 10 MG SUPP RECTAL PRN (06:15)
[2017-12-16] MEDS ORDERED: SODIUM CHLORIDE 0.9% FLUSH 10 ML FLUSH IV FLUSH PRN ×2 (06:15→14:15)
[2017-12-16] MEDS ORDERED: MAGNESIUM HYDROXIDE SUSP 30 ML CUP PO PRN (06:15)
[2017-12-16] MEDS ORDERED: LACTULOSE SYRUP 20 GM/30 ML CUP PO PRN (06:15)
[2017-12-16] MEDS ORDERED: MORPHINE SULFATE 2 MG/ML INJ IV PUSH PRN (06:15)
[2017-12-16] MEDS ORDERED: ONDANSETRON HCL 4 MG/2 ML VIAL IVP PRN (06:15)
[2017-12-16] MEDS ORDERED: NALOXONE HCL 0.4 MG/ML AMP IV PUSH PRN ×2 (06:15→14:15)
[2017-12-16 06:26] VITALS: BP 111/62; PULSE 71; RESP 16; TEMP 98.4; O2SAT 99
[2017-12-16] MEDS ORDERED: PROCHLORPERAZINE INJ 10 MG/2 ML VIAL IV PRN (07:00)
[2017-12-16 08:00] VITALS: BP 110/63; PULSE 72; RESP 19; TEMP 98.4; O2SAT 97
[2017-12-16] MEDS ORDERED: FAMOTIDINE 20 MG/2 ML VIAL IV PUSH SCH (08:15)
--- NOTE | 2017-12-16 08:18 | HHI.HP ---
HPI Service [facility] Hospitalists Primary Care Physician Unknown Admission Diagnosis Diagnoses: Chief Complaint: Abdominal pain, Nausea and vomit. Travel History International Travel<30 Days: No Contact w/Intl Traveler <30 Da: No Traveled to Known Affected Are: No History of Present Illness This is a pleasant 22 y/o Female with Gastroparesis who came to Emergency room due to nausea and vomit, she received Zofran and Discharged Home but as Per mom and sister, patient has been unable to hold any fluids down. Patient has been vomiting the Phenergan that she was prescribed for nausea. Both mother and sister say the patient appears to be confused at times and her "eyes rolled back". There was no obvious tonic-clonic seizures. Patient is also complaining of worsening epigastric abdominal pain, evaluated by Doctor Kevin Dooley at [facility] and transferred to [facility]. The patient symptoms has started on October 2016, Denied Marijuana abuse, has EGD 06/12/17 showed Esophagitis and Duodenitis at this time patient with diagnosis of Appendicitis, will get laparoscopic Appendectomy by General Surgery, discussed with patient and her mother in the room. Review of Systems Constitutional: DENIES: Fever, Chills, Change in appetite Endocrine: DENIES: Heat/cold intolerance Eyes: DENIES: Blurred vision, Eye pain Gastrointestinal: COMPLAINS OF: Abdominal pain, Nausea, Vomiting Except as stated in HPI: all other systems reviewed are Neg Past Family Social History Past Medical History Gastroparesis Past Surgical History No past Surgical History Reported Medications Reported Meds & Active Scripts Active Phenergan (Promethazine HCl) 25 Mg Tablet 25 Mg PO Q6H PRN Protonix (Pantoprazole Sodium) 20 Mg Tab 20 Mg PO DAILY Zofran (Ondansetron HCl) 4 Mg Tab 4 Mg PO Q8HR PRN Reported [ Control Pills] Allergies: Coded Allergies: No Known Allergies (Unverified Allergy, Unknown, 12/16/17) Active Ordered Medications Current Medications Medications (Trade) Dose Ordered Sig/Raghavendra Route Start Time Stop Time Status Last Admin Sodium Chloride 1,000 ml @ 100 mls/hr Q10H IV 12/16/17 06:04 12/16/17 06:42 (NS Flush) 2 ml UNSCH PRN IV FLUSH 12/16/17 06:15 (NS Flush) 2 ml BID IV FLUSH 12/16/17 09:00 (Tylenol) 650 mg Q4H PRN PO 12/16/17 06:15 (Zofran Inj) 4 mg Q6H PRN IVP 12/16/17 06:15 (Narcan Inj) 0.4 mg UNSCH PRN IV PUSH 12/16/17 06:15 (Michelle-Colace) 1 tab BID PO 12/16/17 09:00 (Milk Of Magnesia Liq) 30 ml Q12H PRN PO 12/16/17 06:15 (Senokot) 17.2 mg Q12H PRN PO 12/16/17 06:15 (Dulcolax Supp) 10 mg DAILY PRN RECTAL 12/16/17 06:15 (Lactulose Liq) 30 ml DAILY PRN PO 12/16/17 06:15 Piperacillin Sod/ Tazobactam Sod 50 ml @ 100 mls/hr Q6H IV 12/16/17 08:00 (Morphine Inj) 2 mg Q3H PRN IV PUSH 12/16/17 06:15 (Compazine Inj) 5 mg Q6H PRN IV 12/16/17 07:00 Family History Lives with her mother and sister, denies any toxic habits. Social History Denies any toxic habits. Physical Exam Vital Signs Vital Signs Date Time Temp Pulse Resp B/P (MAP) Pulse Ox O2 Delivery O2 Flow Rate FiO2 12/16/17 06:26 98.4 71 16 111/62 (78) 99 Physical Exam GENERAL: No acute distress. SKIN: Focused skin assessment warm/dry. HEAD: Atraumatic. Normocephalic. EYES: Pupils equal and round. No scleral icterus. No injection or drainage. ENT: No nasal bleeding or discharge. Mucous membranes pink and moist. NECK: Trachea midline. No JVD. CARDIOVASCULAR: Regular rate and rhythm. No murmur appreciated. RESPIRATORY: No accessory muscle use. Clear to auscultation. Breath sounds equal bilaterally. GASTROINTESTINAL: Soft, tender to palpation and self guarding. MUSCULOSKELETAL: No obvious deformities. No clubbing. No cyanosis. No edema. NEUROLOGICAL: Awake and alert. No obvious cranial nerve deficits. Motor grossly within normal limits. Normal speech. PSYCHIATRIC: Appropriate mood and affect; insight and judgment normal. Laboratory Test 12/15/17 22:30 12/15/17 22:52 White Blood Count 15.1 TH/MM3 Red Blood Count 4.06 MIL/MM3 Hemoglobin 12.5 GM/DL Bedside Hemoglobin G/DL Hematocrit 35.3 % Bedside Hematocrit % Mean Corpuscular Volume 86.9 FL Mean Corpuscular Hemoglobin 30.8 PG Mean Corpuscular Hemoglobin Concent 35.4 % Red Cell Distribution Width 12.4 % Platelet Count 265 TH/MM3 Mean Platelet Volume 10.6 FL Immature Granulocyte % (Auto) 0.4 % Neutrophils (%) (Auto) 84.1 % Lymphocytes (%) (Auto) 9.4 % Monocytes (%) (Auto) 6.0 % Eosinophils (%) (Auto) 0.0 % Basophils (%) (Auto) 0.1 % Immature Granulocyte # (Auto) 0.1 TH/MM3 Neutrophils # (Auto) 12.7 TH/MM3 Lymphocytes # (Auto) 1.4 TH/MM3 Monocytes # (Auto) 0.9 TH/MM3 Eosinophils # (Auto) 0.0 TH/MM3 Basophils # (Auto) 0.0 TH/MM3 CBC Comment DIFF FINAL Differential Comment Bedside Sodium 136 MMOL/L Blood Urea Nitrogen 9 MG/DL Creatinine 0.70 MG/DL Random Glucose 98 MG/DL Total Protein 7.7 GM/DL Albumin 3.7 GM/DL Calcium Level 9.1 MG/DL Alkaline Phosphatase 42 U/L Aspartate Amino Transf (AST/SGOT) 24 U/L Alanine Aminotransferase (ALT/SGPT) 13 U/L Total Bilirubin 0.5 MG/DL Sodium Level MEQ/L Potassium Level MEQ/L Chloride Level MEQ/L Carbon Dioxide Level 17.0 MEQ/L Bedside Potassium 4.1 MMOL/L Bedside Chloride 106 MMOL/L Anion Gap 13 MEQ/L Bedside Blood Urea Nitrogen MG/DL Bedside Creatinine MG/DL Estimat Glomerular Filtration Rate 107 ML/MIN Bedside Glucose MG/DL Lipase 689 U/L Human Chorionic Gonadotropin, Quant LESS THAN 1 MIU/ML Lactic Acid Level 0.9 mmol/L Imaging Abdomen/Pelvis CT 12/15/17 0000 Signed Impressions: Service Date/Time: Friday, December 15, 2017 23:37 - CONCLUSION: The appendix is fluid-filled with questionable thickening involving the proximal appendix however this is quite similar to September 2017. I don't see any definite periappendiceal stranding or obvious wall thickening of the mid appendix to confirm appendicitis. The rest of the study is unremarkable. MD Rafa Dozeir VTE Risk Assessment Caprini VTE Risk Assessment: No/Low Risk (score <= 1) Caprini Risk Assessment Model Point Value = 1 Point Value = 2 Point Value = 3 Point Value = 5 Age 41-60 Minor surgery BMI > 25 kg/m2 Swollen legs Varicose veins or History of unexplained or recurrent spontaneous Oral contraceptives or hormone replacement Sepsis (< 1 month) Serious lung disease, including pneumonia (< 1 month) Abnormal pulmonary function Acute myocardial infarction Congestive heart failure (< 1 month) History of inflammatory bowel disease Medical patient at bed rest Age 61-74 Arthroscopic surgery Major open surgery (> 45 min) Laparoscopic surgery (> 45 min) Malignancy Confined to bed (> 72 hours) Immobilizing plaster cast Central venous access Age >= 75 History of VTE Family history of VTE Factor V Leiden Prothrombin [id number] Lupus anticoagulant Anticardiolipin antibodies Elevated serum homocysteine Heparin-induced thrombocytopenia Other congenital or acquired thrombophilia Stroke (< 1 month) Elective arthroplasty Hip, pelvis, or leg fracture Acute spinal cord injury (< 1 month) Prophylaxis Regimen Total Risk Factor Score Risk Level Prophylaxis Regimen 0-1 Low Early ambulation 2 Moderate Order ONE of the following: *Sequential Compression Device (SCD) *Heparin 5000 units SQ BID 3-4 Higher Order ONE of the following medications: *Heparin 5000 units SQ TID *Enoxaparin/Lovenox 40 mg SQ daily (WT < 150 kg, CrCl > 30 mL/min) *Enoxaparin/Lovenox 30 mg SQ daily (WT < 150 kg, CrCl > 10-29 mL/min) *Enoxaparin/Lovenox 30 mg SQ BID (WT < 150 kg, CrCl > 30 mL/min) AND/OR *Sequential Compression Device (SCD) 5 or more Highest Order ONE of the following medications: *Heparin 5000 units SQ TID (Preferred with Epidurals) *Enoxaparin/Lovenox 40 mg SQ daily (WT < 150 kg, CrCl > 30 mL/min) *Enoxaparin/Lovenox 30 mg SQ daily (WT < 150 kg, CrCl > 10-29 mL/min) *Enoxaparin/Lovenox 30 mg SQ BID (WT < 150 kg, CrCl > 30 mL/min) AND *Sequential Compression Device (SCD) Assessment and Plan Assessment and Plan 1. Intractable Nausea and vomit, Abdominal pain with CT scan of her abdomen and pelvis with IV contrast was read as having a fluid-filled appendix with questionable thickening involving the proximal appendix however this is quite similar in appearance to September 2017 There was no definite periappendiceal stranding or obvious wall thickening of the mid appendix to confirm appendicitis. as per General Surgery for Laparoscopic Appendectomy later today. 2. Gastroparesis by history DVT prophylaxis SCDs awaiting for procedure Code Status Full Code Discussed Condition With Patient, her sister and Mother Mrs. Ortiz Physician Certification 2 Midnight Certification Type: Admission for Inpatient Services Order for Inpatient Services The services are ordered in accordance with Medicare regulations or non- Medicare payer requirements, as applicable. In the case of services not specified as inpatient-only, they are appropriately provided as inpatient services in accordance with the 2-midnight benchmark. Estimated LOS (days): 2 days is the estimated time the patient will need to remain in the hospital, assuming treatment plan goals are met and no additional complications. Post-Hospital Plan: Home Saad Lopes MD Dec 16, 2017 08:18
[2017-12-16] MEDS: DOCUSATE SODIUM 50 MG/SENNA 8.6 MG TAB PO SCH ×2 (08:57→20:31)
[2017-12-16] MEDS: PIPERACIL-TAZO 3.375 GM PREMIX 50 ML IV SCH ×3 (08:58→19:28)
[2017-12-16] MEDS ORDERED: PANTOPRAZOLE SODIUM 40 MG VIAL IV PUSH SCH (09:00)
[2017-12-16] MEDS ORDERED: SODIUM CHLORIDE 0.9% FLUSH 10 ML FLUSH IV FLUSH SCH (09:00)
[2017-12-16 12:00] VITALS: BP 96/58; PULSE 73; RESP 20; TEMP 98.2; O2SAT 96
[2017-12-16] MEDS: SUCRALFATE 1 GM/10 ML CUP PO SCH ×3 (12:00→20:31)
[2017-12-16] MEDS ORDERED: METOCLOPRAMIDE HCL 10 MG/2 ML VIAL ONE (12:12)
[2017-12-16] MEDS ORDERED: ACETAMINOPHEN 1000 MG/100 ML 100 ML IV ONE (12:12)
[2017-12-16] MEDS ORDERED: FAMOTIDINE 20 MG/2 ML VIAL ONE (12:13)
[2017-12-16] MEDS ORDERED: DEXMEDETOMIDINE HCL 200 MCG/2 ML VIAL ONE (12:15)
[2017-12-16] MEDS ORDERED: KETAMINE HCL 10 MG/5 ML SYRINGE IV PUSH ONE (12:15)
[2017-12-16] MEDS ORDERED: MAGNESIUM SULFATE 1 GM PREMIX 200 ML ONE (12:18)
[2017-12-16] MEDS ORDERED: ROCURONIUM INJ 50 MG/5 ML SYRINGE IV PUSH ONE (12:20)
[2017-12-16] MEDS ORDERED: LACTATED RINGER'S 1000 ML INJ 1,000 ML IV ONE (12:20)
[2017-12-16] MEDS ORDERED: PHENYLEPH/NS 1000 MCG/10 ML SYR IV ONE (12:20)
[2017-12-16] MEDS ORDERED: LIDOCAINE HCL 1% PF 5 ML SYRINGE OTHER ONE (12:20)
[2017-12-16] MEDS ORDERED: NEOSTIGMINE 5 MG/5 ML SYRINGE IV PUSH ONE (12:20)
[2017-12-16] MEDS ORDERED: KETOROLAC TROMETHAMINE 30 MG/ML (IVP) VIAL IV PUSH ONE (12:20)
[2017-12-16] MEDS ORDERED: GLYCOPYRROLATE 1 MG/5 ML SYRINGE IV PUSH ONE (12:20)
[2017-12-16] MEDS ORDERED: DEXAMETHASONE SOD PHOS 4 MG/ML VIAL IV ONE (12:20)
[2017-12-16] MEDS ORDERED: ONDANSETRON HCL 4 MG/2 ML VIAL IV ONE (12:20)
[2017-12-16] MEDS ORDERED: PROPOFOL 200 MG/20 ML AMP IV ONE (12:20)
[2017-12-16] MEDS ORDERED: BUPIVACAINE/EPINEPHRINE 0.25% 50 ML VIAL ONE (12:23)
[2017-12-16] MEDS ORDERED: POVIDONE IODINE 5% (ANTISEPSIS KIT) 4 APPLICATIONS EACH NARE PRN (12:30)
[2017-12-16] MEDS ORDERED: METOPROLOL TARTRATE 25 MG TAB PO PRN (12:30)
[2017-12-16] MEDS ORDERED: SODIUM CHLORID 0.9% 500 ML IV PRN (12:30)
[2017-12-16] MEDS ORDERED: CHLORHEXIDINE GLUCONATE 2 % 1 PACK (2 CLOTHS) TOPICAL PRN (12:30)
[2017-12-16] MEDS ORDERED: LACTATED RINGER'S 1000 ML IV PRN (12:30)
[2017-12-16] MEDS ORDERED: INSULIN HUMAN REGULAR 1,000 UNITS/10 ML VIAL SQ PRN (12:30)
[2017-12-16] MEDS ORDERED: MIDAZOLAM HCL 2 MG/2 ML VIAL ONE (13:28)
[2017-12-16] MEDS ORDERED: MORPHINE SULFATE 4 MG/ML INJ ONE (13:31)
[2017-12-16] MEDS ORDERED: DO NOT ADM ANY ANTICOAGULANT DRUGS PRN (13:52)
[2017-12-16] MEDS ORDERED: *MEPERIDINE 25 MG INJ VIAL PERIprocedural Use ONLY ONE (13:57)
[2017-12-16] MEDS ORDERED: Post-op Orders (for Pharmacy) XX ONE (14:15)
[2017-12-16] MEDS ORDERED: ONDANSETRON HCL 4 MG/2 ML VIAL IV PUSH PRN (14:15)
[2017-12-16] MEDS ORDERED: *morphine SULFATE 4 MG/ML PERIprocedure ONLY ONE (14:18)
[2017-12-16 14:56] VITALS: BP 116/71; PULSE 69; RESP 17; TEMP 98; O2SAT 99
[2017-12-16] MEDS: FAMOTIDINE 20 MG TAB PO SCH ×2 (15:50→20:31)
[2017-12-16] MEDS: SODIUM CHLOR 0.9% 1000 ML INJ 1,000 ML IV SCH (15:51)
[2017-12-16] MEDS: MORPHINE SULFATE 4 MG/ML INJ IV PUSH PRN ×3 (16:37→23:42)
--- NOTE | 2017-12-16 17:02 | MB ---
cc: Radha Mcfadden MD, Slobodan MD DATE: 12/16/2017 REASON FOR CONSULTATION: Abdominal pain, nausea, vomiting, gastroparesis. HISTORY OF PRESENT ILLNESS: This 22-year-old female presented to the emergency room last night with abdominal pain, nausea and vomiting. The patient apparently cannot hold even water down. The patient has been complaining about worsening epigastric and right lower quadrant pain now for a day or two and hence the admission. It should be noted that the patient's symptoms started in 10/2016, at which point she had EGD, a bunch of other studies and was diagnosed with "gastritis, duodenitis and gastroparesis". PAST MEDICAL HISTORY: Otherwise negative. PAST SURGICAL HISTORY: Negative. MEDICATIONS: Protonix, Phenergan and control pills. ALLERGIES: No allergies. SOCIAL HISTORY: The patient is a high school special education teacher. PHYSICAL EXAMINATION: GENERAL: A pleasant 22-year-old female in no acute distress. HEENT: Normocephalic. No trauma to the head. Pupils equally reactive. Extraocular muscles intact. NECK: Supple. Bilateral carotid pulses. No bruits. NODES: No lymphadenopathy. CHEST: Bilateral breath sounds. HEART: Regular rhythm. ABDOMEN: Soft. Hypoactive bowel sounds, slightly distended. On palpation, tender in the right mid abdomen and right lower quadrant. The patient has no guarding, but definitely rebound. No referred tenderness. Groins are normal. Pelvis is normal. EXTREMITIES: Within normal limits. No signs of vascular deficit. Normal proximal and distal pulses. NEUROLOGIC: The patient is fully intact. I reviewed the laboratory and diagnostic procedures. ASSESSMENT AND PLAN: This patient has had symptoms now for about a year and was diagnosed with"gastroparesis." Comparing the current symptoms to those that the patient had the last time, which was September of this year and comparing the CT scan of abdomen and pelvis with that of September this year, the only abnormal finding is that the patient does have somewhat thick fluid-filled appendix. In addition, the patient has an elevated white count with left shift. It is my impression that the patient has recurrent subacute appendicitis or in some literature this is described as subchronic appendicitis. Subchronic and chronic appendicitis with exacerbations have been a topic of academic literature as long as I go back in surgery and probably before that. However, there is no clear answer to whether this actually exists. It seems, however, from everybody's experience that such a situation exists and patients develop appendicitis which does not quite go all the way to acute perforation, but sort of lingers on. Therefore, it is my opinion that this patient never had gastroparesis as a singular finding. The patient probably did have some degree of gastroparesis and ileus due to subchronic appendicitis and repeated attacks. At this point, the most appropriate and clear way to go is to do laparoscopic appendectomy and go from there. I thank you very much for referral. The patient will be taken to the operating room forthwith. MD FRAN Roth//horace , 03:29 PM , 04:54 PM
--- NOTE | 2017-12-16 17:06 | MP ---
cc: Radha Mcfadden MD DATE OF OPERATION: 12/16/2017 DATE OF SURGERY: 12/16/2017. PREOPERATIVE DIAGNOSES: Subacute appendicitis, abdominal pain. POSTOPERATIVE DIAGNOSES: Subacute appendicitis, abdominal pain. PROCEDURE PERFORMED: Laparoscopic appendectomy. SURGEON: LYN Roth ANESTHESIA: General. ESTIMATED BLOOD LOSS: 10 mL. DESCRIPTION OF PROCEDURE: The patient prepped and draped in usual fashion. The area infiltrated with 1% Xylocaine in supraumbilical area. Then, small incision made vertically, deepened down through the fascia and under direct vision, a John cannula is placed. The abdomen insufflated with CO2. A 5-mm 30-degree camera is now placed and under direct camera vision, the suprapubic and left lower quadrant ports are placed. The abdomen is explored in quadrants. Liver appears to be normal, so does the gallbladder, so does the spleen. Stomach is quite normal. The small bowel is decompressed and normal appearing with some ileus, probably in the pelvis and a few distended loops. Ovaries and tubes appear to be normal, so does the uterus and bladder. The right lower quadrant is now addressed. Some nontraumatic graspers are used to flip the cecum and then localize the appendix. The appendix is in the pelvic position. It is fairly large and thick, around probably about 1 cm, appears to be inflamed with some red and yellowish material on the surface. The appendix is now grasped with a Aren clamp, elevated, and then opening is made in the mesoappendix at the base. An Endo-[place] with white load is fired across the base of the appendix and a second load across the mesentery and the appendix removed through the subumbilical incision using EndoCatch bag. The area irrigated with copious amounts of saline. Once more abdomen is explored and everything withdrawn. Incision was closed with 0 Vicryl and 4-0 subcuticular Monocryl. The patient tolerated the procedure well. MD FRAN Roth/WILIAM , 03:31 PM , 05:05 PM
[2017-12-16] MEDS: SODIUM CHLORIDE 0.9% FLUSH 10 ML FLUSH IV FLUSH SCH (19:31)
[2017-12-16 20:00] VITALS: BP 108/59; PULSE 59; RESP 18; TEMP 98; O2SAT 98
[2017-12-17] VITALS: BP 112/53; PULSE 51; RESP 18; TEMP 97.9; O2SAT 97
[2017-12-17] MEDS: PIPERACIL-TAZO 3.375 GM PREMIX 50 ML IV SCH ×2 (02:51→08:00)
[2017-12-17] MEDS: MORPHINE SULFATE 4 MG/ML INJ IV PUSH PRN ×2 (02:55→09:16)
[2017-12-17 05:05] LABS: AUTOMATED NEUTROPHIL # 6.4 TH/MM3 (1.8-7.7); BASOPHIL % 0.1 % (0.0-2.0); HEMATOCRIT 32.3 % (35.0-46.0); LYMPH % 14.5 % (9.0-44.0); LYMPHOCYTE # 1.2 TH/MM3 (1.0-4.8); MEAN CELL VOLUME 90.1 FL (80.0-100.0); MEAN CORPUSCULAR HEMOGLOBIN 30.8 PG (27.0-34.0); MEAN CORPUSCULAR HGB CONC 34.2 % (32.0-36.0); MONO % 7.9 % (0.0-8.0); MONOCYTE # 0.7 TH/MM3 (0-0.9); NEUT % 77.5 % (16.0-70.0); PLATELET COUNT 187 TH/MM3 (150-450); RED BLOOD COUNT 3.59 MIL/MM3 (4.00-5.30); WHITE BLOOD COUNT 8.3 TH/MM3 (4.0-11.0)
[2017-12-17 05:38] LABS: BICARBONATE 25.2 MEQ/L (21.0-32.0); CALCIUM 8.4 MG/DL (8.5-10.1); CREATININE 0.71 MG/DL (0.50-1.00)
[2017-12-17] MEDS: oxyCODONE/ACETAMINOPHEN 5 MG/325 MG TAB PO PRN ×2 (06:05→12:11)
[2017-12-17 08:00] VITALS: BP 111/56; PULSE 63; RESP 19; TEMP 97.2; O2SAT 99
[2017-12-17] MEDS: SODIUM CHLOR 0.9% 1000 ML INJ 1,000 ML IV SCH (08:00)
[2017-12-17] MEDS: SUCRALFATE 1 GM/10 ML CUP PO SCH (08:01)
[2017-12-17] MEDS: SODIUM CHLORIDE 0.9% FLUSH 10 ML FLUSH IV FLUSH SCH (08:01)
[2017-12-17] MEDS: FAMOTIDINE 20 MG TAB PO SCH (08:01)
[2017-12-17] MEDS: DOCUSATE SODIUM 50 MG/SENNA 8.6 MG TAB PO SCH (08:01)
--- NOTE | 2017-12-17 08:05 | HHI.PR ---
Subjective Remarks History of Present Illness This is a pleasant 22 y/o Female with Gastroparesis who came to Emergency room due to nausea and vomit, she received Zofran and Discharged Home but as Per mom and sister, patient has been unable to hold any fluids down. Patient has been vomiting the Phenergan that she was prescribed for nausea. Both mother and sister say the patient appears to be confused at times and her "eyes rolled back". There was no obvious tonic-clonic seizures. Patient is also complaining of worsening epigastric abdominal pain, evaluated by Doctor Kevin Dooley at [facility] and transferred to [facility]. The patient symptoms has started on October 2016, Denied Marijuana abuse, has EGD 06/12/17 showed Esophagitis and Duodenitis at this time patient with diagnosis of Appendicitis, will get laparoscopic Appendectomy by General Surgery, discussed with patient and her mother in the room. 12/17: Seen in her bedroom in the presence of her mother, Sister and Boyfriend, she is stable wants to go home, seen by General prevention specialist Doctor Radha recommended to discharge home today, follow with him in two weeks. no nausea, vomit or diarrhea. Objective Vital Signs Date Time Temp Pulse Resp B/P (MAP) Pulse Ox O2 Delivery O2 Flow Rate FiO2 12/17/17 00:00 97.9 51 18 112/53 (72) 97 12/16/17 20:00 98.0 59 18 108/59 (75) 98 12/16/17 14:56 98.0 69 17 116/71 (86) 99 12/16/17 14:30 70 12 109/61 (77) 99 Nasal Cannula 2 12/16/17 14:15 81 15 114/65 (81) 99 Nasal Cannula 2 12/16/17 13:55 98.5 113 17 125/58 (80) 100 Nasal Cannula 2 12/16/17 12:00 98.2 73 20 96/58 (71) 96 I/O 12/16/17 12/16/17 12/16/17 12/17/17 12/17/17 12/17/17 07:00 15:00 23:00 07:00 15:00 23:00 Intake Total 1050 ml 475 ml 410 ml Output Total 350 ml Balance 1050 ml 125 ml 410 ml Intake Oral 375 ml 360 ml IV Total 50 ml 100 ml 50 ml Other 1000 ml Output Urine Total 350 ml # Voids 1 2 # Bowel Movements 0 0 Result Diagram: 12/17/17 0304 12/17/17 0304 Imaging Abdomen/Pelvis CT 12/15/17 0000 Signed Impressions: Service Date/Time: Friday, December 15, 2017 23:37 - CONCLUSION: The appendix is fluid-filled with questionable thickening involving the proximal appendix however this is quite similar to September 2017. I don't see any definite periappendiceal stranding or obvious wall thickening of the mid appendix to confirm appendicitis. The rest of the study is unremarkable. Arik Esquivel MD Procedures Laparoscopic Appendectomy 12/16/17 Other Results Laboratory Test 12/15/17 22:30 12/15/17 22:52 White Blood Count 15.1 TH/MM3 Red Blood Count 4.06 MIL/MM3 Hemoglobin 12.5 GM/DL Bedside Hemoglobin G/DL Hematocrit 35.3 % Bedside Hematocrit % Mean Corpuscular Volume 86.9 FL Mean Corpuscular Hemoglobin 30.8 PG Mean Corpuscular Hemoglobin Concent 35.4 % Red Cell Distribution Width 12.4 % Platelet Count 265 TH/MM3 Mean Platelet Volume 10.6 FL Immature Granulocyte % (Auto) 0.4 % Neutrophils (%) (Auto) 84.1 % Lymphocytes (%) (Auto) 9.4 % Monocytes (%) (Auto) 6.0 % Eosinophils (%) (Auto) 0.0 % Basophils (%) (Auto) 0.1 % Immature Granulocyte # (Auto) 0.1 TH/MM3 Neutrophils # (Auto) 12.7 TH/MM3 Lymphocytes # (Auto) 1.4 TH/MM3 Monocytes # (Auto) 0.9 TH/MM3 Eosinophils # (Auto) 0.0 TH/MM3 Basophils # (Auto) 0.0 TH/MM3 CBC Comment DIFF FINAL Differential Comment Bedside Sodium 136 MMOL/L Blood Urea Nitrogen 9 MG/DL Creatinine 0.70 MG/DL Random Glucose 98 MG/DL Total Protein 7.7 GM/DL Albumin 3.7 GM/DL Calcium Level 9.1 MG/DL Alkaline Phosphatase 42 U/L Aspartate Amino Transf (AST/SGOT) 24 U/L Alanine Aminotransferase (ALT/SGPT) 13 U/L Total Bilirubin 0.5 MG/DL Sodium Level MEQ/L Potassium Level MEQ/L Chloride Level MEQ/L Carbon Dioxide Level 17.0 MEQ/L Bedside Potassium 4.1 MMOL/L Bedside Chloride 106 MMOL/L Anion Gap 13 MEQ/L Bedside Blood Urea Nitrogen MG/DL Bedside Creatinine MG/DL Estimat Glomerular Filtration Rate 107 ML/MIN Bedside Glucose MG/DL Lipase 689 U/L Human Chorionic Gonadotropin, Quant LESS THAN 1 MIU/ML Lactic Acid Level 0.9 mmol/L Test 12/17/17 03:04 White Blood Count 8.3 TH/MM3 Red Blood Count 3.59 MIL/MM3 Hemoglobin 11.0 GM/DL Hematocrit 32.3 % Mean Corpuscular Volume 90.1 FL Mean Corpuscular Hemoglobin 30.8 PG Mean Corpuscular Hemoglobin Concent 34.2 % Red Cell Distribution Width 13.0 % Platelet Count 187 TH/MM3 Mean Platelet Volume 9.0 FL Neutrophils (%) (Auto) 77.5 % Lymphocytes (%) (Auto) 14.5 % Monocytes (%) (Auto) 7.9 % Eosinophils (%) (Auto) 0.0 % Basophils (%) (Auto) 0.1 % Neutrophils # (Auto) 6.4 TH/MM3 Lymphocytes # (Auto) 1.2 TH/MM3 Monocytes # (Auto) 0.7 TH/MM3 Eosinophils # (Auto) 0.0 TH/MM3 Basophils # (Auto) 0.0 TH/MM3 CBC Comment DIFF FINAL Differential Comment Blood Urea Nitrogen 9 MG/DL Creatinine 0.71 MG/DL Random Glucose 79 MG/DL Calcium Level 8.4 MG/DL Sodium Level 141 MEQ/L Potassium Level 3.7 MEQ/L Chloride Level 109 MEQ/L Carbon Dioxide Level 25.2 MEQ/L Anion Gap 7 MEQ/L Estimat Glomerular Filtration Rate 105 ML/MIN Objective Remarks GENERAL: No acute distress. SKIN: Focused skin assessment warm/dry. HEAD: Atraumatic. Normocephalic. EYES: Pupils equal and round. No scleral icterus. No injection or drainage. ENT: No nasal bleeding or discharge. Mucous membranes pink and moist. NECK: Trachea midline. No JVD. CARDIOVASCULAR: Regular rate and rhythm. No murmur appreciated. RESPIRATORY: No accessory muscle use. Clear to auscultation. Breath sounds equal bilaterally. GASTROINTESTINAL: Soft, clean surgical wounds. MUSCULOSKELETAL: No obvious deformities. No clubbing. No cyanosis. No edema. NEUROLOGICAL: Awake and alert. No obvious cranial nerve deficits. Motor grossly within normal limits. Normal speech. PSYCHIATRIC: Appropriate mood and affect; insight and judgment normal. Medications and IVs Current Medications Medications (Trade) Dose Ordered Sig/Raghavendra Route Start Time Stop Time Status Last Admin (Tylenol) 650 mg Q4H PRN PO 12/16/17 06:15 (Narcan Inj) 0.4 mg UNSCH PRN IV PUSH 12/16/17 06:15 (Michelle-Colace) 1 tab BID PO 12/16/17 09:00 12/16/17 20:31 (Milk Of Magnesia Liq) 30 ml Q12H PRN PO 12/16/17 06:15 (Senokot) 17.2 mg Q12H PRN PO 12/16/17 06:15 (Dulcolax Supp) 10 mg DAILY PRN RECTAL 12/16/17 06:15 (Lactulose Liq) 30 ml DAILY PRN PO 12/16/17 06:15 Piperacillin Sod/ Tazobactam Sod 50 ml @ 100 mls/hr Q6H IV 12/16/17 08:00 12/17/17 08:00 12/17/17 02:51 (Morphine Inj) 2 mg Q3H PRN IV PUSH 12/16/17 06:15 12/16/17 08:57 (Compazine Inj) 5 mg Q6H PRN IV 12/16/17 07:00 12/16/17 08:57 (Carafate Liq) 1 gm ACHS PO 12/16/17 12:00 12/16/17 20:31 (Lopressor) 25 mg [employer] PRN PO 12/16/17 12:30 12/19/17 12:29 Sodium Chloride 1,000 ml @ 60 mls/hr [id number] IV 12/16/17 14:10 12/16/17 15:51 (NS Flush) 2 ml UNSCH PRN IV FLUSH 12/16/17 14:15 (NS Flush) 2 ml BID IV FLUSH 12/16/17 21:00 12/16/17 19:31 (Zofran Inj) 4 mg Q6H PRN IV PUSH 12/16/17 14:15 (Narcan Inj) 0.4 mg UNSCH PRN IV PUSH 12/16/17 14:15 (Morphine Inj) 4 mg Q3H PRN IV PUSH 12/16/17 14:15 12/17/17 02:55 (Percocet 5-325 Mg) 1 tab Q4H PRN PO 12/16/17 14:15 12/17/17 06:05 (Pepcid) 20 mg BID PO 12/16/17 14:15 12/16/17 20:31 Miscellaneous Information ALL NURSING DEPARTME... UNSCH PRN .XX 12/16/17 13:52 12/17/17 13:51 A/P Assessment and Plan 1. Intractable Nausea and vomit, Abdominal pain with CT scan of her abdomen and pelvis with IV contrast was read as having a fluid-filled appendix with questionable thickening involving the proximal appendix however this is quite similar in appearance to September 2017 There was no definite periappendiceal stranding or obvious wall thickening of the mid appendix to confirm appendicitis. with diagnosis of subacute appendicitis, status post Laparoscopic Appendectomy. recommended by Doctor Evgeny Garcia and follow with him in two weeks. 2. Questionable Gastroparesis. DVT prophylaxis SCDs awaiting for procedure Code Status Full Code Discussed Condition With Patient, her sister and Mother Mrs. Ortiz, and Boyfriend in the room. Discharge Planning Discharge home today. Saad Lopes MD Dec 17, 2017 08:05
--- NOTE | 2017-12-17 11:30 | PD.CAR.PN ---
CVT Progress Note Subjective/Hospital Course: 12/17/2017 Abdomen soft active bowel sounds Incisions clean and dry Normal GI function Discharge patient today We will write the discharge order to confirm with medical doctor Follow-up with me 2 weeks Objective: Vital Signs Date Time Temp Pulse Resp B/P (MAP) Pulse Ox O2 Delivery O2 Flow Rate FiO2 12/17/17 08:00 97.2 63 19 111/56 (74) 99 12/17/17 00:00 97.9 51 18 112/53 (72) 97 12/16/17 20:00 98.0 59 18 108/59 (75) 98 12/16/17 14:56 98.0 69 17 116/71 (86) 99 12/16/17 14:30 70 12 109/61 (77) 99 Nasal Cannula 2 12/16/17 14:15 81 15 114/65 (81) 99 Nasal Cannula 2 12/16/17 13:55 98.5 113 17 125/58 (80) 100 Nasal Cannula 2 12/16/17 12:00 98.2 73 20 96/58 (71) 96 Labs: Laboratory Tests Test 12/17/17 03:04 White Blood Count 8.3 TH/MM3 (4.0-11.0) Red Blood Count 3.59 MIL/MM3 (4.00-5.30) Hemoglobin 11.0 GM/DL (11.6-15.3) Hematocrit 32.3 % (35.0-46.0) Mean Corpuscular Volume 90.1 FL (80.0-100.0) Mean Corpuscular Hemoglobin 30.8 PG (27.0-34.0) Mean Corpuscular Hemoglobin Concent 34.2 % (32.0-36.0) Red Cell Distribution Width 13.0 % (11.6-17.2) Platelet Count 187 TH/MM3 (150-450) Mean Platelet Volume 9.0 FL (7.0-11.0) Neutrophils (%) (Auto) 77.5 % (16.0-70.0) Lymphocytes (%) (Auto) 14.5 % (9.0-44.0) Monocytes (%) (Auto) 7.9 % (0.0-8.0) Eosinophils (%) (Auto) 0.0 % (0.0-4.0) Basophils (%) (Auto) 0.1 % (0.0-2.0) Neutrophils # (Auto) 6.4 TH/MM3 (1.8-7.7) Lymphocytes # (Auto) 1.2 TH/MM3 (1.0-4.8) Monocytes # (Auto) 0.7 TH/MM3 (0-0.9) Eosinophils # (Auto) 0.0 TH/MM3 (0-0.4) Basophils # (Auto) 0.0 TH/MM3 (0-0.2) CBC Comment DIFF FINAL Differential Comment Blood Urea Nitrogen 9 MG/DL (7-18) Creatinine 0.71 MG/DL (0.50-1.00) Random Glucose 79 MG/DL (74-106) Calcium Level 8.4 MG/DL (8.5-10.1) Sodium Level 141 MEQ/L (136-145) Potassium Level 3.7 MEQ/L (3.5-5.1) Chloride Level 109 MEQ/L (98-107) Carbon Dioxide Level 25.2 MEQ/L (21.0-32.0) Anion Gap 7 MEQ/L (5-15) Estimat Glomerular Filtration Rate 105 ML/MIN (>89) Result Diagram: 12/17/17 0304 12/17/17 0304 Radha Mcfadden MD Dec 17, 2017 11:30
[2017-12-17] MEDS ORDERED: NORC5TAB PO (11:34)
--- NOTE | 2017-12-17 12:15 | HHI.DS ---
Discharge Summary Admission Date Dec 16, 2017 at 05:59 Discharge Date: Dec 17, 2017 Admitting Diagnosis (1) Appendicitis ICD Code: K37 - Unspecified appendicitis Diagnosis: Principal Procedures Laparoscopic Appendectomy 12/16/17 Brief History - From Admission This is a pleasant 22 y/o Female with Gastroparesis who came to Emergency room due to nausea and vomit, she received Zofran and Discharged Home but as Per mom and sister, patient has been unable to hold any fluids down. Patient has been vomiting the Phenergan that she was prescribed for nausea. Both mother and sister say the patient appears to be confused at times and her "eyes rolled back". There was no obvious tonic-clonic seizures. Patient is also complaining of worsening epigastric abdominal pain, evaluated by Doctor Kevin Dooley at [facility] and transferred to [facility]. The patient symptoms has started on October 2016, Denied Marijuana abuse, has EGD 06/12/17 showed Esophagitis and Duodenitis at this time patient with diagnosis of Appendicitis, will get laparoscopic Appendectomy by General Surgery, discussed with patient and her mother in the room. CBC/BMP: 12/17/17 0304 12/17/17 0304 Significant Findings Laboratory Tests Test 12/17/17 03:04 Red Blood Count 3.59 MIL/MM3 (4.00-5.30) Hemoglobin 11.0 GM/DL (11.6-15.3) Hematocrit 32.3 % (35.0-46.0) Neutrophils (%) (Auto) 77.5 % (16.0-70.0) Calcium Level 8.4 MG/DL (8.5-10.1) Chloride Level 109 MEQ/L (98-107) Imaging Abdomen/Pelvis CT 12/15/17 0000 Signed Impressions: Service Date/Time: Friday, December 15, 2017 23:37 - CONCLUSION: The appendix is fluid-filled with questionable thickening involving the proximal appendix however this is quite similar to September 2017. I don't see any definite periappendiceal stranding or obvious wall thickening of the mid appendix to confirm appendicitis. The rest of the study is unremarkable. Arik Esquivel MD PE at Discharge GENERAL: No acute distress. SKIN: Focused skin assessment warm/dry. HEAD: Atraumatic. Normocephalic. EYES: Pupils equal and round. No scleral icterus. No injection or drainage. ENT: No nasal bleeding or discharge. Mucous membranes pink and moist. NECK: Trachea midline. No JVD. CARDIOVASCULAR: Regular rate and rhythm. No murmur appreciated. RESPIRATORY: No accessory muscle use. Clear to auscultation. Breath sounds equal bilaterally. GASTROINTESTINAL: Soft, clean surgical wounds. MUSCULOSKELETAL: No obvious deformities. No clubbing. No cyanosis. No edema. NEUROLOGICAL: Awake and alert. No obvious cranial nerve deficits. Motor grossly within normal limits. Normal speech. PSYCHIATRIC: Appropriate mood and affect; insight and judgment normal. Hospital Course History of Present Illness This is a pleasant 22 y/o Female with Gastroparesis who came to Emergency room due to nausea and vomit, she received Zofran and Discharged Home but as Per mom and sister, patient has been unable to hold any fluids down. Patient has been vomiting the Phenergan that she was prescribed for nausea. Both mother and sister say the patient appears to be confused at times and her "eyes rolled back". There was no obvious tonic-clonic seizures. Patient is also complaining of worsening epigastric abdominal pain, evaluated by Doctor Kevin Dooley at [facility] and transferred to [facility]. The patient symptoms has started on October 2016, Denied Marijuana abuse, has EGD 06/12/17 showed Esophagitis and Duodenitis at this time patient with diagnosis of Appendicitis, will get laparoscopic Appendectomy by General Surgery, discussed with patient and her mother in the room. 12/17: Seen in her bedroom in the presence of her mother, Sister and Boyfriend, she is stable wants to go home, seen by General security specialist Doctor Radha recommended to discharge home today, follow with him in two weeks. no nausea, vomit or diarrhea. Assessment and Plan 1. Intractable Nausea and vomit, Abdominal pain with CT scan of her abdomen and pelvis with IV contrast was read as having a fluid-filled appendix with questionable thickening involving the proximal appendix however this is quite similar in appearance to September 2017 There was no definite periappendiceal stranding or obvious wall thickening of the mid appendix to confirm appendicitis. with diagnosis of subacute appendicitis, status post Laparoscopic Appendectomy. recommended by Doctor Evgeny Garcia and follow with him in two weeks. 2. Questionable Gastroparesis. DVT prophylaxis SCDs awaiting for procedure Code Status Full Code Discussed Condition With Patient, her sister and Mother Mrs. Ortiz, and Boyfriend in the room. Discharge Planning Discharge home today. Pt Condition on Discharge: Good Discharge Disposition: Discharge Home Discharge Time: <= 30 minutes Discharge Instructions DIET: Follow Instructions for: As Tolerated, No Restrictions Activities you can perform: Regular-No Restrictions Other Activity Instructions: No lifting over 30 pounds no contact sports Saad Lopes MD Dec 17, 2017 12:15
== END 2017-12-17 13:56 | disposition home or self-care (01) ==
LOC: NEDDLT 05:49 → N07A 05:59 → INTOOBSV 05:59
PROVIDERS: ADMIT Internal Medicine; ATTEND Internal Medicine
DX: K36 Other appendicitis (principal); K31.84 Gastroparesis; K29.80 Duodenitis without bleeding
CPT/HCPCS: 00840; 44970; 74177; 80048; 80053; 83605; 83690; 84702; 85025; 88304; 94150; 96361; 96365; 96366; 96372; 96374; 96375; 96376; 99285; C9113; G0378; J0131; J0780; J1100; J1885; J2175; J2250; J2270; J2370; J2405; J2543; J2550; J2710; J2765; J3010; J3475; J7030; J7120; Q9967